=== PATIENT | male | born 1960 | race Caucasian/White ===

== ENCOUNTER 2025-07-27 23:47 | Emergency (ER) | payer SELFPAY ==
[2025-07-27 23:48] VITALS: BP 186/106; PULSE 75; RESP 18; TEMP 36.8; O2SAT 98; BMI 28.1
--- NOTE | 2025-07-28 00:01 | EDS_ITS ---
HPI History of Present Illness Chief Complaint: Complaint Informant: patient Narrative Narrative: Patient is a 65-year-old male with history of hypertension and type 2 diabetes mellitus presenting with difficulty urinating/decreased urine production. States he has had progressive symptoms for the past 2 days. He states about 2 hours prior to arrival he was able to have a very small urine (he states slightly more than a dribble). Able to urinate since. He feels that he does need to urinate. He describes discomfort in his lower abdomen. Has never had this happen to him before. Denies any recent anesthetics or medication changes. Denies any nausea or vomiting, fever or chills or change in his bowel movements. Denies any blood in his urine. Notes that 1 time he did have microscopic blood in his urine at a work physical but is not clear if he f ollowed up with that. States his most recent PSA was normal. States he will urinate anywhere between 1-4 times a night depending on the night. [facility] Medical History Type 2 diabetes mellitus HTN (hypertension) Allergy/AdvReac Type Severity Reaction Status Date / Time No Known Allergies Allergy Verified 07/27/25 23:48 Surgical History H/O heart surgery Social History Smoking Status: Current every day smoker tobacco type: smokeless tobacco ROS ROS ED Constitutional Constitutional ED: Denies chills or fever(s) Gastrointestinal Gastrointestinal: Denies diarrhea, nausea or vomiting Genitourinary Genitourinary ED: Reports urinary frequency and other Details: Difficulty urinating, inability to urinate ; Denies dysuria or hematuria Musculoskeletal Musculoskeletal: Denies back pain Neurologic Neurologic: Denies weakness EXAM Physical Exam Const Vital Signs: 07/27/25 23:48 Temperature 98.3 F Temperature Source Oral Pulse Rate 75 Respiratory Rate 18 Blood Pressure 186/106 H Blood Pressure Mean 132 Pulse Ox 98 Positive well nourished and well developed General Appearance ED: well developed and NAD; Negative for pallor HEENT Reports moist mucous membranes Neck supple Resp normal respiratory effort Cardio regular rate GI non-distended Auscultation: normoactive bowel sounds Palpation: soft and tender suprapubic Narrative: Normal external genitalia. Crowe catheter placed was in the room, clear yellow urine coming out (600-700 cc after the first few minutes) Extremity normal to inspection Neuro oriented x3 Sensorium / Orientation: alert Psych mental status grossly normal Skin General Skin Exam: Negative for jaundice or pallor MDM MDM MDM Narrative Medical decision making narrative: Patient valuated for difficulty urinating. Differential includes not limited to acute urinary retention, prostate enlargement, urinary tract infection and cystitis hematuria. Bladder scan shows almost 1000 cc of urine. Crowe catheter placed. Given his symptoms are going on for 2 days we will check a BMP to ensure he does not have an acute kidney injury. Will send off her urine/urine culture. Patient has a total of 1000 cc of urine out per nursing. Kidney function has normal creatinine and no signs of infection. Is given education on Crowe catheter care and outpatient urology follow-up. Given return precautions. Discharged home in improved and stable condition. Lab Data Labs: Laboratory Results - last 24 hr 07/28/25 07/28/25 00:00 00:01 Sodium 136 Potassium 4.3 Chloride 101 Carbon Dioxide 21.3 Anion Gap 14 BUN 28 H Creatinine 1.20 Estim Creat Clear Calc 76.23 Est GFR (MDRD) Non-Af 68 BUN/Creatinine Ratio 22.9 H Glucose 162 H Calcium 9.4 Urine Color Yellow Urine Clarity Clear Urine pH 6.5 Ur Specific [place] 1.015 Urine Protein 15 H Urine Glucose (UA) Normal Urine Ketones Negative Urine Occult Blood Negative Urine Nitrite Negative Urine Bilirubin Negative Urine Urobilinogen Normal Ur Leukocyte Esterase Negative Urine RBC 0-5 SEEN Urine WBC 0-5 SEEN Ur Squamous Epith Cells 0-5 SEEN Urine Bacteria 0 SEEN Urine Mucus 0 SEEN Discharge Plan Triage Chief Complaint: Complaint ED Provider: Cecilia Walker Dx/Rx/DC Orders Clinical Impression: Acute urinary retention Instructions: ED Crowe Catheter, Care, ED Urinary Retention, Male Primary Care Provider: KAILEY CALL Referrals: Bruno Colon MD [Med Staff - Active Staff, Urology] Activity Restrictions/Additional Instructions: Follow-up with your family medicine doctor or urology in 3 to 5 days for repeat evaluation and potential removal of your Crowe catheter. Print Language: Citizen Of [place] Disposition Disposition: Home, Self Care
[2025-07-28 00:05] LABS: Mucous, Urine 0 SEEN /hpf (<or=2+)
[2025-07-28 00:07] LABS: Color, Urine Yellow (Yellow); Glucose, Dipstick Normal (Normal); Ketone-Dipstick Negative (Negative); Leukocyte Esterase-Dipstick Negative /ul (Negative); Nitrite-Dipstick Negative (Negative); Occult Blood-Urine Negative /ul (Negative); Protein-Dipstick 15 mg/dl (Negative); Specific Gravity, Urine 1.015 (1.002-1.030); Urine Bilirubin Dipstick Negative (Negative)
--- OUTSIDE RECORDS SUMMARY | 2025-07-28 00:23 | XMS RPT_ITS | CCD ---
Author Organization [facility] Inform ion Partnership [facility] Care Team Providers Care Rod Tape Operator Name Role Phone MARY JIMENEZ Unavailable Unavailable MARY JIMENEZ Unavailable Unavailable MARY JIMENEZ Unavailable Unavailable SE ADLER Unavailable Unavailable Kailey Nieves DO Primary Care Provider Kailey Nivees DO Primary Care Provider KAILEY NIEVES Primary Care Unavailable SKYLER VERGARA Attending Unavailable KAILEY NIEVES Primary Care Unavailable SKYLER VERGARA Referring Unavailable GENTRY BARRIOS Referring Unavailable KAILEY NIEVES Primary Care Unavailable KAILEY NIEVES Primary Care Unavailable Medications Current Medications Medication Drug Class(es) Dates Sig (Normalized) Sig (Original) aspirin 81 mg chewable tablet (6 sources) Platelet Aggregation Inhibitor, Nonsteroidal Anti-inflammatory Drug Start: 09-27-2023 End: 12-18-2069 aspirin 81 mg chewable tablet Chew 1 tablet (81 mg total) 1 (one) time each day. 30 tablet 09/29/2023 12/18/2069 Active Start: 09-26-2023 aspirin chewab le tablet 324 mg End: 09-26-2023 take 1 tablet by mouth once daily aspirin 81 mg EC tablet Take 81 mg by mouth 1 (one) time each day. 0 09/26/2023 Discontinued (Pharmacy Med Rec) cephalexin 500 mg oral capsule (2 sources) Cephalosporin Antibacterial Start: 02-20-2025 End: 02-25-2025 take 1 capsule by mouth four times daily cephalexin (Keflex) 500 mg capsule Take 1 capsule (500 mg total) by mouth 4 (four) times a day for 5 days. 20 capsule 02/20/2025 02/25/2025 Active Start: 02-20-2025 End: 02-20-2025 take 500 mg by mouth once 500 mg, oral, Once, On Chika at 0845, For 1 dose, Suspected Indication (Select all that apply): Medical Prophylaxis dextromethorphan hydrobromide 15 mg / guaiFENesin 400 mg / pseudoephedrine hydrochloride 60 mg oral tablet (1 source) alpha-Adrenergic Agonist, Uncompetitive B-tlthii-B-aspartate Receptor Antagonist, Sigma-1 Agonist Start: 03-16-2022 take 1 tablet by mouth every six hours ioucwosdytbiumt-WV-hqwddbaykle (Capmist DM) 60-15-400 mg tablet Indications: Acute upper respiratory infection, unspecified Take 1 tablet by mouth every 6 (six) hours if needed (cough/congestion). 30 tablet 0 03/16/2022 Active empagliflozin 10 mg oral tablet (3 sources) Sodium-Glucose Cotransporter 2 Inhibitor Start: 11-27-2023 take 1 tablet by mouth once daily Jardiance 10 mg Take 1 tablet (10 mg total) by mouth 1 (one) time each day. 11/27/2023 Active Start: 09-27-2023 End: 10-29-2023 take 1 tablet by mouth once daily empagliflozin (Jardiance) 10 mg Take 1 tablet (10 mg total) by mouth 1 (one) time each day. 30 tablet 0 09/29/2023 10/29/2023 Active furosemide 20 mg oral tablet (1 source) Loop Diuretic Start: 09-18-2018 furosemide (La six) 20 mg tablet 1 (one) time each day at the same time. 0 09/18/2018 Active glimepiride 4 mg oral tablet (4 sources) Sulfonylurea Start: 09-09-2022 End: 09-28-2023 take 1 tablet by mouth once daily before breakfast glimepiride (Amaryl) 4 mg tablet Take 1 tablet (4 mg total) by mouth 1 (one) time each day before breakfast. 09/09/2022 Active Start: 06-29-2021 take 1 tablet by katarzyna th twice daily glimepiride (Amaryl) 4 mg tablet Take 4 mg by mouth 2 (two) times a day. 0 06/29/2021 Active losartan potassium 100 mg oral tablet (7 sources) Angiotensin 2 Receptor Celeste Start: 09-29-2023 End: 09-28-2023 losartan (Cozaar) tablet 100 mg Start: 09-28-2023 End: 12-18-2073 take 1 tablet by mouth once daily losartan (Cozaar) 100 mg tablet Take 1 tablet (100 mg total) by mouth 1 (one) time each day. 30 tablet 09/28/2023 12/18/2073 Active Start: 07-04-2021 End: 09-28-2023 take 50 mg by mouth once daily 50 mg, oral, Daily, Fir st dose on Mon09/27/23 at 0900 metFORMIN hydrochloride 1000 mg oral tablet (3 sources) Biguanide Start: 06-29-2021 take 1 tablet by mouth twice daily metFORMIN (Glucophage) 1,000 mg tablet Take 1 tablet (1,000 mg total) by mouth 2 (two) times a day. 06/29/2021 Active rosuvastatin calcium 20 mg oral tablet (4 sources) HMG-CoA Reductase Inhibitor Start: 05-24-2021 End: 09-28-2023 take 1 tablet by mouth once daily rosuvastatin (Crestor) 20 mg tablet Take 1 tablet (20 mg total) by mouth every night. 05/24/2021 Active spironolactone 25 mg oral tablet (4 sources) Aldosterone Antagonist Start: 09-09-2022 End: 09-28-2023 take 1 tablet by mouth once daily spironolactone (Aldactone) 25 mg tablet Take 1 tablet (25 mg total) by mouth 1 (one) time each day. 09/09/2022 Active Start: 07-04-2021 take 1 tablet by katarzyna twice daily spironolactone (Aldactone) 25 mg tablet Take 25 mg by mouth 2 (two) times a day. 0 07/04/2021 Active Completed/Discontinued Medications Medication Drug Class(es) Dates Sig (Normalized) Sig (Original) acetaminophen 650 mg rectal suppository (5 sources) Start: 09-27-2023 End: 09-28-2023 take 4 g by mouth every twenty-four hours 650 mg, rectal, Every 4 hours PRN, general discomfort or temperature greater than 100.4 degrees F. *Do not exceed 4 grams in 24 hours*, Starting on Mon09/27/23 at 0119, Give OH if unable to administer by mouth or feeding tube. Start: 09-27-2023 End: 09-28-2023 take 4 g by mouth every twenty-four hours 650 mg, oral, Every 4 hours PRN, fever, general discomfort or temperature greater than 100.4 degrees F. May give rectal suppository if npo. *Do not exceed 4 grams in 24 hours*, Starting on Mon09/27/23 at 0119 Start: 09-27-2023 End: 09-28-2023 take 4 g by mouth every twenty-four hours 650 mg, oral, Every 4 hours PRN, general discomfort or temperature greater than 100.4 degrees F. May give rectal suppository if npo. *Do not exceed 4 grams in 24 hours*, Starting on Mon09/27/23 at 0119 take 500-1000 mg by mouth every six hours as needed acetaminophen (Tylenol) 500 mg tablet Take 1-2 tablets (500-1,000 mg total) by mouth every 6 (six) hours if needed for mild pain. Active Atropine (1 source) Anticholinergic, Cholinergic Muscarinic Antagonist Start: 09-27-2023 End: 09-28-2023 0.5 mg, intravenous, Every 5 min PRN, symptomatic bradycardia, Starting on Mon09/27/23 at 0119, Prn symptomatic bradycardia including: - HR less than 50 per minute - HR less than 60 per minute with systolic BP less than 90 mm Hg - HR less than 60 per minute with PVCs carvedilol 25 mg oral tablet (5 sources) alpha-Adrenergic Celeste, beta-Adrenergic Celeste Start: 09-09-2022 End: 09-28-2023 take 25 mg by mouth twice daily at mealtime 25 mg, oral, 2 times daily with meals, First dose on Mon09/27/23 at 0800 Start: 02-08-2018 take 1 tablet by katarzyna twice daily carvedilol (Coreg) 12.5 mg tablet ONE BY MOUTH TWICE A DAY 0 02/08/2018 Active clopidogrel 75 mg oral tablet (4 sources) P2Y12 Platelet Inhibitor Start: 09-10-2022 End: 09-28-2023 take 75 mg by mouth once daily 75 mg, oral, Daily, First dose on Mon09/27/23 at 0900 docusate sodium 100 mg oral capsule (1 source) Start: 09-27-2023 End: 09-28-2023 take 100 mg by mouth twice daily as needed for constipation 100 mg, oral, 2 times daily PRN, constipation prevention, Starting on Mon09/27/23 at 0119, Bowel Regimen - for prevention of constipation. Glucose (1 source) Start: 09-27-2023 End: 09-28-2023 dextrose solution 25 mL 250 ml heparin sodium, porcine 50 unt/ml injection (2 sources) Unfractionated Heparin, Anti-coagulant Start: 09-26-2023 End: 09-27-2023 heparin infusion 50 units/mL in 0.45% NaCl Start: 09-26-2023 End: 09-26-2023 heparin (porcine) injection 4,000 Units 1 ml hydrALAZINE hydrochloride 20 mg/ml injection (1 source) Arteriolar Vasodilator Start: 09-26-2023 End: 09-26-2023 hydrALAZINE (Apresoline) injection 10 mg 24 hr isosorbide mononitrate 30 mg extended release oral tablet (1 source) Nitrate Vasodilator Start: 09-26-2023 End: 09-26-2023 isosorbide mononitrate ER (Imdur) 24 hr tablet 30 mg magnesium hydroxide 80 mg/ml oral suspension (1 source) Start: 09-27-2023 End: 09-28-2023 take 30 mL by mouth once daily as needed for constipation 30 mL, oral, Daily PRN, constipation, Starting on Mon09/27/23 at 0119, 1st line for treatment of constipation - give scheduled if no bowel movement in past 24 hours Naloxone (1 source) Opioid Antagonist Start: 09-27-2023 End: 09-28-2023 0.4 mg, intravenous, As needed, respiratory depression, Starting on Mon09/27/23 at 0119, 0.4 mg (1 mL) IVP over 30 seconds for respiratory rate less than 8 per minute: NOTIFY PHYSICIAN immediately. Repeat every 2 minutes as needed up to 10 mg total. nitroglycerin 0.4 mg sublingual tablet (4 sources) Nitrate Vasodilator Start: 09-09-2022 End: 09-28-2023 0.4 mg, sublingual, Every 5 min PRN, chest pain, Starting on Mon09/27/23 at 0119, Give every 5 minutes as needed for chest pain to a maximum of 3 doses. Notify MD and obtain EKG if no relief after 3 doses or chest pain recurs. HOLD and notify MD if SBP less than 90 mmHg. Do not give if nitroglycerin infusion running concurrently. Do not give within 24 hours of sildenafil citrate (Viagra) or vardenafil (Levitra) use, or within 48 hours of tadalafil (Cialis) use. 2 ml ondansetron 2 mg/ml injection (1 source) Serotonin-3 Receptor Antagonist Start: 09-27-2023 End: 09-28-2023 4 mg, intravenous, Every 8 hours PRN, nausea, vomiting, Starting on Mon09/27/23 at 0119, 1st Line. If inadequate response within 60 minutes, proceed to next-line agent or contact provider if no further options ordered. Oxygen (1 source) Start: 09-27-2023 End: 09-28-2023 inhalation, See admin instructions, Starting on Mon09/27/23 at 011, for shortness of breath or Hgb less than 8.0, Device: Nasal Cannula, Rate in liters per minute: 2 Lpm, Titrate to keep O2 Sat greater than or equal to: 90% potassium chloride 10 meq extended release oral tablet (1 source) Start: 09-27-2023 End: 09-27-2023 potassium chloride CR (K-Tab) ER tablet 20 mEq 125 ml sodium chloride 9 mg/ml prefilled syringe (2 sources) Start: 09-27-2023 End: 09-28-2023 3-15 mL, intravenous, As needed, line care, each shift and as needed, Starting on Mon09/27/23 at 0119 Start: 09-27-2023 End: 09-28-2023 250 mL, intravenous, at 20 m L/hr, KVO, Line Care, Starting on Mon09/27/23 at 0119, If no maintenance IV fluid ordered, run a 250 mL bag of 0.9% NaCl with all IVPB. Problems Active Problems Problem Classification Problem Date Documented Da te Episodic/Chronic Acute and unspecified renal failure (2 sources) Acute injury of kidney; Translations: [Acute kidney failure, unspecified] 09-07-2022 Episodic Acute myocardial infarction (4 sources) Myocardial infarction; Translations: [Non-ST elevation (NSTEMI) myocardial infarction] Onset: 09-07-2022 09-28-2023 Chronic Conduction disorders (3 sources) Left bundle branch block; Translations: [Left bundle-branch block, unspecified] Onset: 09-26-2023 09-28-2023 Chronic Congestive heart failure; nonhypertensive (4 sources) Chronic systolic heart failure; Translations: [Chronic systolic (congestive) heart failure] Onset: 09-08-2022 09-28-2023 Chronic Coronary atherosclerosis and other heart disease (4 sources) Preinfarction syndrome; Translations: [Unstable angina] 09-26-2023 Chronic Diabetes mellitus without complication (3 sources) Type 2 diabetes mellitus; Translations: [Type 2 diabetes mellitus without complications] 09-28-2023 Chronic Disorders of lipid metabolism (3 sources) Hyperlipidemia; Translations: [Hyperlipidemia, unspecified] Onset: 09-26-2023 09-28-2023 Chronic Essential hypertension (3 sources) Hypertensive disorder; Translations: [Essential (primary) hypertension] 09-28-2023 Chronic Open wounds of extremities (2 sources) Laceration without foreign body of unspecified toe without damage to nail, initial encounter; Translations: [Laceration of toe without foreign body] Onset: 02-20-2025 02-20-2025 Episodic Other upper respiratory infections (1 source) Acute upper respiratory infection; Translations: [Acute upper respiratory infection, unspecified] Episodic Superficial injury; contusion (2 sources) Contusion of unspecified knee, initial encounter; Translations: [Contusion of knee] Onset: 02-20-2025 02-20-2025 Episodic Unclassified (1 source) Low back pain, unspecified; Translations: [Low back pain, unspecified] Onset: 06-15-2024 Viral infection (1 source) Viral disease; Translations: [Viral infection, unspecified] Episodic Past or Other Problems Problem Classification Problem Date Documented Da te Episodic/Chronic Hypertension with complications and secondary hypertension (3 sources) Hypertensive urgency ; Translations: [Hypertensive urgency] Onset: 09-26-2023 Resolved: 09-28-2023 09-28-2023 Chronic Nonspecific chest pain (3 sources) Acute chest pain; Translations: [Chest pain, unspecified] Onset: 09-07-2022 09-26-2023 Episodic Results Test Name Value Interpretation Reference Range Facility Laceration Repairon 02-21-20 25 Neeta Marin 02/20/2025 8:51 AM Laceration Repair Performed by: Skyler Vergara MD Authorized by: Skyler Vergara MD Consent: Consent obtained: Verbal Consent given by: Patient Anesthesia: Anesthesia method: Local infiltration Local anesthetic: Lidocaine 1% w/o epi Laceration details: Location: Toe Toe location: R little toe Length (cm): 2 Exploration: Contaminated: no Treatment: Area cleansed with: Povidone-iodine Amount of cleaning: Extensive Irrigation solution: Sterile saline Skin repair: Repair method: Sutures Suture size: 4-0 Suture material: Nylon Suture technique: Simple interrupted Number of sutures: 4 Approximation: Approximation: Close Repair type: Repair type: Simple Post-procedure details: Dressing: Antibiotic ointment Procedure completion: Tolerated [facility] No Panel Informationon 02-20 Radiology Study observation (narrative) [facility] XR FOOT 3+ VIEWS RIGHTon XR FOOT 3+ VIEWS RIGHT XR FOOT 3+ VIEWS RIGHT RIGHT FOOT: TECHNIQUE: AP, lateral and oblique views (3 views) CLINICAL INDICATION: Fall, pain COMPARISON: None available in PACS. FINDINGS: The osseous structures appear intact. No fracture or dislocation is identified. There is a small plantar spur. Posterior calcaneal enthesophyte is noted. Bandage is noted overlying the fifth digit. IMPRESSION: 1. No acute fracture. Normal [facility] XR Foot - right 3 Viewson 1. No acute fracture . [facility] RIGHT FOOT: TECHNIQUE: AP, lateral and oblique views (3 views) CLINICAL INDICATION: Fall, pain COMPARISON: None available in PACS. FINDINGS: The osseous structures appear intact. No fracture or dislocation is identified. There is a small plantar spur. Posterior calcaneal enthesophyte is noted. Bandage is noted overlying the fifth digit. [facility] Harish Jj MD - 02/20/2025 RIGHT FOOT: TECHNIQUE: AP, lateral and oblique views (3 views) CLINICAL INDICATION: Fall, pain COMPARISON: None available in PACS. FINDINGS: The osseous structures appear intact. No fracture or dislocation is identified. There is a small plantar spur. Posterior calcaneal enthesophyte is noted. Bandage is noted overlying the fifth digit. IMPRESSION: 1. No acute fracture. [facility] XR Foot - right 3 ViewsOrder ed By: Harish Jj on 02-20-2025 [facility] Work Phone: XR KNEE 2 VIEWS LEFTon 02-20 XR KNEE 2 VIEWS LEFT XR KNEE 2 VIEWS LEFT LEFT KNEE: TECHNIQUE: AP and lateral views (2 views) CLINICAL INDICATION: Injury, pain COMPARISON: None available in PACS. FINDINGS: No fracture or dislocation is identified. Enthesophytes are seen in the quadriceps insertion and patellar tendon insertion. Mild benign-appearing periosteal thickening is seen along the proximal shaft of the fibula and adjacent soft tissue calcifications are noted. Grouping of multiple small soft tissue calcifications are seen posterior to the knee. IMPRESSION: 1. No fracture or dislocation. Normal [facility] XR Knee - left 2 Viewson 1. No fracture or dislocation. [facility] LEFT KNEE: TECHNIQUE: AP and lateral views (2 views) CLINICAL INDICATION: Injury, pain COMPARISON: None available in PACS. FINDINGS: No fracture or dislocation is identified. Enthesophytes are seen in the quadriceps insertion and patellar tendon insertion. Mild benign-appearing periosteal thickening is seen along the proximal shaft of the fibula and adjacent soft tissue calcifications are noted. Grouping of multiple small soft tissue calcifications are seen posterior to the knee. [facility] Harish Jj MD - 02/20/2025 LEFT KNEE: TECHNIQUE: AP and lateral views (2 views) CLINICAL INDICATION: Injury, pain COMPARISON: None available in PACS. FINDINGS: No fracture or dislocation is identified. Enthesophytes are seen in the quadriceps insertion and patellar tendon insertion. Mild benign-appearing periosteal thickening is seen along the proximal shaft of the fibula and adjacent soft tissue calcifications are noted. Grouping of multiple small soft tissue calcifications are seen posterior to the knee. IMPRESSION: 1. No fracture or dislocation. [facility] XR TIBIA FIBULA 2 VIEWS RIGH Ton 02-20-2025 XR TIBIA FIBULA 2 VIEWS RIGHT XR TIBIA FIBULA 2 VIEWS RIGHT RIGHT LEG: TECHNIQUE: AP and lateral views (2 views) CLINICAL INDICATION: Fall, pain COMPARISON: None available in PACS. FINDINGS: No acute fracture is identified. Mild periosteal thickening and adjacent soft tissue calcifications seen along the proximal shaft of the fibula. Focal calcification is identified superimposed on the distal fibula at the lateral malleolus. This may be related to an old injury. No soft tissue swelling is identified. IMPRESSION: 1. No definite acute abnormality. Normal [facility] XR Tibia and Fibula - right Viewson 02-20-2025 1. No definite acute abnormality. [facility] RIGHT LEG: TECHNIQUE: AP and lateral views (2 views) CLINICAL INDICATION: Fall, pain COMPARISON: None available in PACS. FINDINGS: No acute fracture is identified. Mild periosteal thickening and adjacent soft tissue calcifications seen along the proximal shaft of the fibula. Focal calcification is identified superimposed on the distal fibula at the lateral malleolus. This may be related to an old injury. No soft tissue swelling is identified. [facility] Harish Jj MD - 02/20/2025 RIGHT LEG: TECHNIQUE: AP and lateral views (2 views) CLINICAL INDICATION: Fall, pain COMPARISON: None available in PACS. FINDINGS: No acute fracture is identified. Mild periosteal thickening and adjacent soft tissue calcifications seen along the proximal shaft of the fibula. Focal calcification is identified superimposed on the distal fibula at the lateral malleolus. This may be related to an old injury. No soft tissue swelling is identified. IMPRESSION: 1. No definite acute abnormality. [facility] Basic metabolic 1998 panelon 09-28-2023 Anion gap [Moles/Vol] 13.7 mmol/L 8.0 - 22.0 [facility] Calcium [Mass/Vol] 8.5 mg/dL Low 8.7 - 10. 4 mg/dL [facility] Chloride [Moles/Vol] 104 mmol/L 99 - 109 mmol/L [facility] CO2 [Moles/Vol] 21 mmol/L 20 - 31 mmol/L [facility] Creatinine [Mass/Vol] 1.0 mg/dL 0.7 - 1.3 mg/dL [facility] Fasting status Reported Ql [facility] GFR/1.73 sq M.predicted MDRD (S/P/Bld) [Vol rate/Area] 85.1 mL/min/{1.73_m2} =>60 mL/min/1.73m* 2 [facility] Comment on above: CALCULATION BASED ON THE CHRONIC KIDNEY DISEASE EPIDEMIOLOGY COLLABORATION (CKD-EPI) EQUATION REFIT WITHOUT ADJUSTMENT FOR RACE. GFR LESS THAN 60 mL/min/1.73m2: SUGGESTIVE OF CHRONIC KIDNEY DISEASE. GFR LESS THAN 15 mL/min/1.73m2: SUGGESTIVE OF END STAGE RENAL DISEASE. Glucose [Mass/Vol] 116 mg/dL High 74 - 106 mg/dL [facility] Comment on above: NOTE IF THIS IS A FASTING SPECIMEN THE FOLLOWING RANGES APPLY: NORMAL 70 TO 99 mg/dL PREDIABETIC 100 TO 125 mg/dL DIABETIC >= 126 mg/dL Interpretation and review of laboratory results Abnormal [facility] Osmolality Calc [Osmolality] 278 mosm/kg 275 - 305 mosm/kg [facility] Potassium [Moles/Vol] 4.7 mmol/L 3.6 - 5.1 mmol/L [facility] Sodium [Moles/Vol] 134 mmol/L 132 - 146 mmol/L [facility] Urea nitrogen [Mass/Vol] 11 mg/dL 9 - 23 mg/dL [facility] Urea nitrogen/Creatinine [Mass ratio] 11.0 mg/mg 6.0 - 20.0 [facility] CBC panel Auto (Bld)on 09-28 Erythrocyte distribution width (RBC) [Ratio] 14.3 % 11.5 - 14.5 % [facility] Hematocrit (Bld) [Volume fraction] 45.8 % 41.0 - 53.0 % [facility] Hemoglobin (Bld) [Mass/Vol] 14.3 g/dL 13.5 - 17.5 g/dL [facility] Interpretation and review of laboratory results Abnormal [facility] MCH (RBC) [Entitic mass] 27.2 pg 26.0 - 34.0 pg [facility] MCHC (RBC) [Mass/Vol] 31.2 g/dL 31.0 - 37.0 g/dL [facility] MCV (RBC) [Entitic vol] 87.0 fL 80.0 - 100.0 fL [facility] Platelet mean volume (Bld) [Entitic vol] 7.2 fL Low 7.4 - 10.4 fL [facility] Platelets (Bld) [#/Vol] 177 10*3/uL 140 - 440 10*3/uL [facility] RBC (Bld) [#/Vol] 5.27 10*6/uL 4.50 - 5.9 0 10*6/uL [facility] WBC (Bld) [#/Vol] 5.8 10*3/uL 4.0 - 11.0 10*3/uL [facility] Cholesterol in LDL Direct as say [Mass/Vol]on 09-28-2023 Cholesterol in LDL [Mass/Vol] 90.4 mg/dL NINF - 100 mg/dL [facility] Comment on above: RISK LEVELS: OPTIMAL: LESS THAN 100 MG/DL NEAR OR ABOVE OPTIMAL: 100-129 MG/DL BORDERLINE HIGH: 130-159 MG/DL HIGH: 160-189 MG/DL VERY HIGH: GREATER THAN OR EQUAL 190 MG/DL Interpretation and review of laboratory results Normal [facility] Glucose baseline (BldC) [Mas s/Vol]on 09-28-2023 Glucose [Mass/Vol] 149 mg/dL High 74 - 118 mg/dL [facility] Comment on above: ACCEPT RESULTS Interpretation and review of laboratory results Abnormal [facility] Glucose [Mass/Vol] 119 mg/dL High 74 - 118 mg/dL [facility] Comment on above: ACCEPT RESULTS Interpretation and review of laboratory results Abnormal [facility] Magnesiumon 09-28-2023 Magnesium [Mass/Vol] 2.3 mg/dL 1.5 - 2.3 mg/dL [facility] Magnesium [Mass/Vol]on 09-28 Interpretation and review of laboratory results Normal [facility] CBC panel Auto (Bld)on 09-27 Erythrocyte distribution width (RBC) [Ratio] 14.4 % 11.5 - 14.5 % [facility] Hematocrit (Bld) [Volume fraction] 44.0 % 41.0 - 53.0 % [facility] Hemoglobin (Bld) [Mass/Vol] 13.9 g/dL 13.5 - 17.5 g/dL [facility] Interpretation and review of laboratory results Abnormal [facility] MCH (RBC) [Entitic mass] 26.9 pg 26.0 - 34.0 pg [facility] MCHC (RBC) [Mass/Vol] 31.5 g/dL 31.0 - 37.0 g/dL [facility] MCV (RBC) [Entitic vol] 85.3 fL 80.0 - 100.0 fL [facility] Platelet mean volume (Bld) [Entitic vol] 7.0 fL Low 7.4 - 10.4 fL [facility] Platelets (Bld) [#/Vol] 212 10*3/uL 140 - 440 10*3/uL [facility] RBC (Bld) [#/Vol] 5.16 10*6/uL 4.50 - 5.9 0 10*6/uL [facility] WBC (Bld) [#/Vol] 6.0 10*3/uL 4.0 - 11.0 10*3/uL [facility] Cardiac catheterization stud yon 09-27-2023 POCT, GENERIC PROVID ER - 09/27/2023 [address], [place] [address] Invasive Procedure Report PATIENT INFORMATION Patient Name SIDRA, Age 63 Years ANDREWS Pillai Study Date 09/27/2023 Gender Male Race White Study Number [id number] Height 178 cm (5'10) Weight 99.7 kg (220 lbs) Date of 1960 BSA 2.17 m2 STAFF Duty Name Diagnostic Zipper Machine Operator Thong Paez MD 11:26 AM Leadlighter Fabiola Ramos RN 11:26 AM Leadlighter Yasmine Aldridge RN 11:26 AM Monitor Maribel Almanzar RN 11:27 AM Monitor Yasmine Aldridge RN 11:27 AM Scrub RT Valeria 11:34 AM Product Trainer Thong Paez MD 12:29 PM PROCEDURES Procedure Comment Left Heart Cath Coronary Angiogram PCI & Stent to LCX ACT. ACT. CONTRAST Contrast Amount (m l) Comment Patient Name: ANDREWS VALENTE Study Date: 09/27/2023 Admission ID: [id number] [address] [place] [address] Isovue 370 100 PRESSURE SUMMARY (mmHg) Time Site Sys Jimenez EDP Mean A Wave V Wave HR 12:22 PM LV 115 1 9 67 12:22 PM LV 118 6 10 66 12:22 PM LV 100 6 13 66 12:22 PM AO 92 50 55 55 12:41 PM AO 114 64 85 64 PHYSICIAN DESIRED OTERO SEDATION SCALE (RSS) Anxious/agitated or restless = 1 Patient is cooperative, oriented & tranquil = 2 Patient responds to commands only = 3 Patient asleep but responds briskly to light glabellar tap or loud sounds = 4 Patient asleep with sluggish response to light glabellar tap or sounds = 5 Patient asleep with no response to stimuli = 6 Physician Desired Otero Level = 2 VITAL SIGNS Time SpO HR BP Exp RR Tem RSS/RASS LOP Comment 2 (BP (m m Hg) CO2 (per p (%) M) (m m H m in) ( C ) g) 11:54 96 72 160/90/119 35 18 2 0 AM 11:59 95 64 142/89/111 27 20 2 0 AM 12:03 96 66 128/77/95 33 14 2 0 PM 12:08 95 67 127/76/93 38 19 2 0 PM 12:13 95 65 119/73/91 30 14 2 0 PM 12:18 95 64 120/78/95 31 16 2 0 PM 12:23 93 67 131/82/100 36 17 2 0 PM 12:29 93 64 149/79/104 36 16 2 0 PM 12:33 95 64 141/78/101 31 15 2 0 PM 12:38 96 63 141/74/99 34 16 2 0 PM Patient Name: ANDREWS VALENTE Study Date: 09/27/2023 Admission ID: [id number] Page 2 of [address] [place] [address] 12:43 96 66 139/75/101 33 16 2 0 PM 12:49 95 63 155/84/112 36 15 2 0 PM 12:55 97 64 148/76/103 36 16 2 0 PM 12:59 96 64 144/69/99 34 15 2 0 PM 1:04 97 62 143/79/104 28 14 2 0 PM 1:08 95 62 140/83/105 34 15 2 0 PM ALLERGIES Allergies: NKDA PATIENT EDUCATION Learning Barrier Present None Learning Preference Verbal Explanation Readiness to Learn Cooperative Literacy Level Average Health Literacy Learners Present Patient Teaching Methods Used Explanation Subject Taught Diagnostic Procedure Subject Taught Medications/Sedation Subject Taught Pain Management Subject Taught Plan of Care Subject Taught Activity Restricions Subject Taught Anticoagulant Therapy Side Effects Reviewed Yes Learners Response Verbalizes Understanding NURSING ASSESSMENT Current medications See EMR Cardiovascular status No extremity edema Respiratory status Resp. regular and easy GI status Abdomen soft and non tender /Renal status Voids without difficulty Patient Name: ANDREWS VALENTE Study Date: 09/27/2023 Admission ID: [id number] Page 3 of [address] [place] [id number] History and Risk Factors *Hypertension:(4615) Yes *Dyslipidemia:(4620) Yes *Prior CA:(4291) Yes *Prior PCI:(4495) Yes *If Yes, Most Recent PCI Date:(4503) 10/23/2018 *Tobacco Use:(4625) Never *Family Hx. of Premature CAD:(4287) No Cerebrovascular Disease:(4551) No Peripheral Artery Disease:(4610) No Chronic Lung Disease:(4576) No *Prior CABG:(4515) No History and Risk Factors Form 2 *Diabetes Mellitus:(4555) Yes *Currently on Dialysis:(4560) No Pre-Procedure Information *Heart Failure:(4001) Yes PATIENT LABS Date of Labwork 09/27/2023 Na: 137 K+: 3.7 Bun: 10 GFR: 96 Pre-Troponin I: 325 Hct: 44 Platelets: 212 Labs *Pre-Creatinine:(6050) 0.9 Pre-Hemoglobin:(6030) 13.9 Patient Name: ANDREWS VALENTE Study Date: 09/27/2023 Admission ID: [id number] Page 4 of [address] [place] [id number] PAIN ASSESSMENT Pre Procedure Pain Scale 0 Post Procedure Pain Scale 0 PRE PROCEDURE PULSES Time Pulses Checked 11:33:44 AM R Radial: Normal L Radial: Normal Extremity Movement Able to move all 4 extremities Extremity Sensation WNL x 4 extremities Capillary refill < 2sec. Skin temp. Warm Skin color WNL Nail bed color WNL ACT ACT Reference range CV patient 120-196 seconds ACT #1 Time 12:21:12 PM ACT result #1 165 Performed by Tiera Bowen RN ACT #2 Time 12:45:23 PM ACT result #2 118 Performed by Tiera Bowen RN ANGIOGRAM (more content not included)... [facility] [employer] Cardiac catheterization stud yOrdered By: Generic Poct on 09-27-2023 [facility] [employer] Work Phone: Cardiac echo study Procedure on 09-27-2023 [facility] [address] [place], [place] [id number] Voice: [phone] Transthoracic Echocardiogram Name: ANDREWS VALENTE Study Date: 09/27/2023 Date: 1960 Order #: [id number] Age: 63 year(s) Patient location: [facility], [facility] [place], [facility] Gender: Male Ordering provider: KAYLENE PORTER HR: Height /Weight: 70 in. /99.34 kg BP: 115/74 mmHg BSA: 2.17 m2 Examination: ECHO(COMPLETE) Primary ICD 10: I21.4 Non-ST elevation (NSTEMI) myocardial infarction Procedure Staff Reading Physician: Thong Paez MD Architectural Drafter: Deloris Toro RDCS Ordering Physician: KAYLENE PORTER Conclusions Left Ventricle: * Left ventricle is moderately dilated. * Severely abnormal systolic LV function. * Biplane LVEF is calculated at 25 %. * Severe global hypokinesis. * Doppler parameters are consistent with abnormal left ventricular relaxation (Grade 1 diastolic dysfunction). Mitral Valve: * Mitral leaflets exhibit normal cuspal separation. * There is mild mitral thickening. Tricuspid Valve: * Trivial tricuspid regurgitation. Tricuspid Valve Measurements * RVSP: 6 mmHg. Findings Left Ventricle: Patient: ANDREWS VALENTE Study Date: 09/27/2023 10:58 AM Page 1 of 3 Left ventricle is moderately dilated. Severely abnormal systolic LV function. Severe global hypokinesis. Doppler parameters are consistent with abnormal left ventricular relaxation (Grade 1 diastolic dysfunction). Right Ventricle: Normal size right ventricle. Right ventricular systolic function is normal. Left Atrium: The left atrium is mildly dilated. Right Atrium: The right atrium is normal in size and appearance. Mitral Valve: Mitral leaflets exhibit normal cuspal separation. There is mild mitral thickening. Aortic Valve: Aortic Leaflets exhibit normal cuspal separation. Tricuspid Valve: Tricuspid valve leaflets are normal. Trivial tricuspid regurgitation. Pulmonic Valve: Pulmonic leaflets exhibit normal cuspal separation. Aorta: The ascending aorta is normal in size. The transverse aorta is normal in size. The aortic root exhibits normal size. Pericardium: Normal pericardium, including no pericardial effusion. --- Measurements Left Ventricle Aortic Valve Label Value Normal Value Label Value Normal Value LVOT Vmax 0.78 m/s (0.7m/s - 1.1m/s) AV Vmax 1.19 m/s LVOTd 2.1 cm (1.9cm - 2.1cm) AV Vmean 0.93 m/s LVOT VTI 16.00 cm (18cm - 22cm) AV VTI 26.00 cm LVOT PGmax 2 mmHg AV PGmax 6 mmHg LVDd, 2D 5.3 cm (4.2cm - 5.8cm) AV PGmean 4 mmHg LVDs, 2D 4.4 cm (2.5cm - 4cm) MAGALY D (continuity eq. 2.3 cm LVPWd, 2D 1.2 cm (0.6cm - 1cm) Vmax) FS, 2D 16.98 % MAGALY D (continuity eq. 2.1 cm LVEF, BP 25 % (52% - 72%) VTI) LVEF, 2D 35 % (52% - 72%) Mitral Valve LVEDV, BP 177 ml (62ml - 150ml) Label Value Normal Value LVSV, BP 69 ml MV Vmax 1.32 m/s EPSS, MM 2.7 cm (0.2cm - 0.7cm) MV Vmean 0.68 m/s LVEDV, 2D 135 ml MV VT (more content not included)... [facility] Thong Paez MD - 09/27/2023 IMPRESSION: [place] [address] Voice: [phone] Transthoracic Echocardiogram ------ Name: ANDREWS VALENTE Study Date: 09/27/2023 Date: 1960 Order #: [id number] Age: 63 year(s) Patient location: [address] Gender: Male Ordering provider: KAYLENE PORTER HR: Height /Weight: 70 in. /99.34 kg BP: 115/74 mmHg BSA: 2.17 m2 ------ Examination: ECHO(COMPLETE) ------ Primary ICD 10: I21.4 Non-ST elevation (NSTEMI) myocardial infarction ------ Procedure Staff Reading Physician: Thong Paez MD Architectural Drafter: Deloris Toro RDCS Ordering Physician: KAYLENE PORTER ------ Conclusions Left Ventricle: * Left ventricle is moderately dilated. * Severely abnormal systolic LV function. * Biplane LVEF is calculated at 25 %. * Severe global hypokinesis. * Doppler parameters are consistent with abnormal left ventricular relaxation (Grade 1 diastolic dysfunction). Mitral Valve: * Mitral leaflets exhibit normal cuspal separation. * There is mild mitral thickening. Tricuspid Valve: * Trivial tricuspid regurgitation. Tricuspid Valve Measurements * RVSP: 6 mmHg. ------ Findings Left Ventricle: Patient: ANDREWS VALENTE Study Date: 09/27/2023 10:58 AM Page 1 of 3 Left ventricle is moderately dilated. Severely abnormal systolic LV function. Severe global hypokinesis. Doppler parameters are consistent with abnormal left ventricular relaxation (Grade 1 diastolic dysfunction). Right Ventricle: Normal size right ventricle. Right ventricular systolic function is normal. Left Atrium: The left atrium is mildly dilated. Right Atrium: The right atrium is normal in size and appearance. Mitral Valve: Mitral leaflets exhibit normal cuspal separation. There is mild mitral thickening. Aortic Valve: Aortic Leaflets exhibit normal cuspal separation. Tricuspid Valve: Tricuspid valve leaflets are normal. Trivial tricuspid regurgitation. Pulmonic Valve: Pulmonic leaflets exhibit normal cuspal separation. Aorta: The ascending aorta is normal in size. The transverse aorta is normal in size. The aortic root exhibits normal size. Pericardium: Normal pericardium, including no pericardial effusion. --- Measurements Left Ventricle Aortic Valve Label Value Normal Value Label Value Normal Value LVOT Vmax 0.78 m/s (0.7m/s - 1.1m/s) AV Vmax 1.19 m/s LVOTd 2.1 cm (1.9cm - 2.1cm) AV Vmean 0.93 m/s LVOT VTI 16.00 cm (18cm - 22cm) AV VTI 26.00 cm LVOT PGmax 2 mmHg AV PGmax 6 mmHg LVDd, 2D 5.3 cm (4.2cm - 5.8cm) AV PGmean 4 mmHg LVDs, 2D 4.4 cm (2.5cm - 4cm) MAGALY D (continuity eq. 2.3 cm LVPWd, 2D 1.2 cm (0.6cm - 1cm) Vmax) FS, 2D 16.98 % MAGALY D (continuity eq. 2.1 cm LVEF, BP 25 % (52% - 72%) VTI) LVEF, 2D 35 % (52% - 72%) Mitral Valve LVEDV, BP 177 ml (62ml - 150ml) Label Value Normal Value LVSV, BP 69 ml MV Vmax 1.32 m/s EPSS, MM 2.7 cm (0.2cm - 0.7cm) MV Vmean 0.68 m/s LVEDV, 2D 135 ml MV VTI 27.70 cm LVESV, 2D 88 ml MVA D (continuity eq. 2.0 cm LVSV, 2D 47 ml Vmax) MV PGmax 7 mmHg Left Ventricular Diastolic Function Label Value Normal Value MV PGmean 2 mmHg MV E Vmax 0.60 m/s Tricuspid Valve MV A Vmax 1.00 m/s Label Value Normal Value MV E/A 0.60 RVSP 6 mmHg MV E/E' lateral 13.70 RA Pressure 3 mmHg MV E/E' septal 14.40 (0.45 - 1.25) TR Vmax 0.87 m/s MV DT 201 ms TR Pmax 3 mmHg MV E' septal 0.04 m/s Pulmonic Valve Label Value Normal Value Patient: ANDREWS VALENTE Study Date: 09/27/2023 10:58 AM Page 2 of 3 MV E' lateral 0.04 m/s PV Vmax 0.87 m/s MV E/E' mean 15.00 PV PGmax 3 mmHg MV E' mean 0.04 m/s Aorta Right Ventricle Label Value Normal Value Label Value Normal Value AoAsc 3.3 cm TAPSE, MM 1.8 cm (1.7cm - 99.9cm) AoArch 3.2 cm RVD Base 3.2 cm (2.5cm - 4.1cm) AoRoot, 2D 3 cm (2.7cm - 3.7cm) RVD Mid 2 cm (1.9cm - 3.5cm) RVD Long 6.9 cm (5.9cm - 8.3cm) Interventricular Septum Label Value Normal Valu (more content not included)... [facility] Comprehensive metabolic 1998 panelon 09-27-2023 Albumin BCG dye [Mass/Vol] 3.8 g/dL 3.2 - 4.8 g/dL [facility] Albumin/Globulin [Mass ratio] 1.5 {ratio} 0.9 - 2.0 [facility] ALP [Catalytic activity/Vol] 80 U/L [facility] ALT [Catalytic activity/Vol] 9 U/L Low [facility] Anion gap [Moles/Vol] 13.7 mmol/L 8.0 - 22.0 [facility] AST [Catalytic activity/Vol] 11 U/L NINF [facility] AST/Alanine aminotransferase [Catalytic ratio] 1.2 0.0 - 2.0 [facility] Bilirubin [Mass/Vol] 0.5 mg/dL 0.2 - 1.2 mg/dL [facility] Calcium [Mass/Vol] 8.2 mg/dL Low 8.7 - 10. 4 mg/dL [facility] Chloride [Moles/Vol] 103 mmol/L 99 - 109 mmol/L [facility] CO2 [Moles/Vol] 24 mmol/L 20 - 31 mmol/L [facility] Creatinine [Mass/Vol] 0.9 mg/dL 0.7 - 1.3 mg/dL [facility] Fasting status Reported Ql [facility] GFR/1.73 sq M.predicted MDRD (S/P/Bld) [Vol rate/Area] 96.6 mL/min/{1.73_m2} =>60 mL/min/1.73m* 2 [facility] Comment on above: CALCULATION BASED ON THE CHRONIC KIDNEY DISEASE EPIDEMIOLOGY COLLABORATION (CKD-EPI) EQUATION REFIT WITHOUT ADJUSTMENT FOR RACE. GFR LESS THAN 60 mL/min/1.73m2: SUGGESTIVE OF CHRONIC KIDNEY DISEASE. GFR LESS THAN 15 mL/min/1.73m2: SUGGESTIVE OF END STAGE RENAL DISEASE. Globulin (S) [Mass/Vol] 2.5 g/dL [facility] Glucose [Mass/Vol] 135 mg/dL High 74 - 106 mg/dL [facility] Comment on above: NOTE IF THIS IS A FASTING SPECIMEN THE FOLLOWING RANGES APPLY: NORMAL 70 TO 99 mg/dL PREDIABETIC 100 TO 125 mg/dL DIABETIC >= 126 mg/dL Interpretation and review of laboratory results Abnormal [facility] Osmolality Calc [Osmolality] 285 mosm/kg 275 - 305 mosm/kg [facility] Potassium [Moles/Vol] 3.7 mmol/L 3.6 - 5.1 mmol/L [facility] Protein [Mass/Vol] 6.3 g/dL 5.7 - 8.2 g/dL [facility] Sodium [Moles/Vol] 137 mmol/L 132 - 146 mmol/L [facility] Urea nitrogen [Mass/Vol] 10 mg/dL 9 - 23 mg/dL [facility] Urea nitrogen/Creatinine [Mass ratio] 11.1 mg/mg 6.0 - 20.0 [facility] HEPARIN, ANTI-XAOrdered By: Kae Valderrama on 09-27-2023 Heparin unfractionated Chromogenic method Qn (PPP) IU/mL [facility] Comment on above: UFH Therapeutic Range: 0.30 - 0.70 IU/mL LMWH Therapeutic Ranges(target anti-Xa levels measured 4 hours after dosing):0.5-1.0 IU/mL HEPARIN, ANTI-XAon Heparin unfractionated Chromogenic method Qn (PPP) 0.23 IU/mL [facility] Comment on above: UFH Therapeutic Range: 0.30 - 0.70 IU/mL LMWH Therapeutic Ranges(target anti-Xa levels measured 4 hours after dosing):0.5-1.0 IU/mL Heparin unfractionated Chromogenic method Qn (PPP) 0.20 IU/mL [facility] Comment on above: UFH Therapeutic Range: 0.30 - 0.70 IU/mL LMWH Therapeutic Ranges(target anti-Xa levels measured 4 hours after dosing):0.5-1.0 IU/mL HbA1c (Bld) [Mass fraction]O rdered By: Hilary Romero on 09-27-2023 Average glucose Estimated from glycated hemoglobin (Bld) [Moles/Vol] 163 mg/dL [facility] Interpretation and review of laboratory results Abnormal [facility] Hemoglobin [id number] By: [facility] felicitas Romero on 09-27-2023 HbA1c (Bld) [Mass fraction] 7.3 % High 4.1 - 5.6 % [facility] Comment on above: REFERENCE RANGE A1C: NORMAL = 4.1 TO 5.6 PREDIABETIC RANGE = 5.7 TO 6.4 DIABETIC RANGE = >= 6.5 Heparin unfractionated Chrom ogenic method Qn (PPP)Ordered By: Kae Valderrama on 09-27-2023 Interpretation and review of laboratory results Normal [facility] Heparin unfractionated Chrom ogenic method Qn (PPP)on 09-27-2023 Interpretation and review of laboratory results Normal [facility] Interpretation and review of laboratory results Normal [facility] Lipid 1995 panelon Cholesterol [Mass/Vol] 140 mg/dL NINF - 200 mg/dL [facility] Comment on above: THE NATIONAL CHOLESTEROL EDUCATION PROGRAM HAS PUBLISHED REFERENCE CHOLESTEROL VALUES FOR CARDIOVASCULAR RISK TO BE: DESIRABLE: LESS THAN 200 mg/dL BORDERLINE HIGH: 200-239 mg/dL HIGH: GREATER THAN EQUAL TO 240 mg/dL Cholesterol in HDL [Mass/Vol] 24 mg/dL Low 60 - PINF mg/dL [facility] Comment on above: CARDIOVASCULAR RISK: LOW - GREATER THAN OR EQUAL TO 60 mg/dL CARDIOVASCULAR RISK: HIGH - LESS THAN 40 mg/dL Cholesterol in LDL [Mass/Vol] 75 mg/dL 10 - 130 mg/dL [facility] Comment on above: RISK LEVELS: < 130 MG/DL: DESIRABLE LDL 130-159 MG/DL: BORDERLINE HIGH RISK LDL >OR= 160 MG/DL: HIGH RISK LDL Cholesterol.total/C holesterol in HDL [Mass ratio] 5.8 {ratio} High 0.1 - 4.0 [facility] Interpretation and review of laboratory results Abnormal [facility] Triglyceride [Mass/Vol] 203 mg/dL High NINF - 150 mg/dL [facility] Comment on above: NORMAL: LESS THAN 150 MG/DL BORDERLINE OR HIGH: 150-199 MG/DL HIGH: 200-499 MG/DL VERY HIGH: GREATER THAN OR EQUAL TO 500 MG/DL [facility] Basic metabolic 1997 panelon 09-26-2023 Anion gap [Moles/Vol] 10.3 mmol/L 8.0 - 22.0 [facility] Calcium [Mass/Vol] 9.0 mg/dL 8.7 - 10. 4 mg/dL [facility] Chloride [Moles/Vol] 102 mmol/L 99 - 109 mmol/L [facility] CO2 [Moles/Vol] 31 mmol/L 20 - 31 mmol/L [facility] Creatinine [Mass/Vol] 1.2 mg/dL 0.7 - 1.3 mg/dL [facility] Fasting status Reported Ql [facility] GFR/1.73 sq M.predicted MDRD (S/P/Bld) [Vol rate/Area] 68.4 mL/min/{1.73_m2} =>60 mL/min/1.73m* 2 [facility] Comment on above: CALCULATION BASED ON THE CHRONIC KIDNEY DISEASE EPIDEMIOLOGY COLLABORATION (CKD-EPI) EQUATION REFIT WITHOUT ADJUSTMENT FOR RACE. GFR LESS THAN 60 mL/min/1.73m2: SUGGESTIVE OF CHRONIC KIDNEY DISEASE. GFR LESS THAN 15 mL/min/1.73m2: SUGGESTIVE OF END STAGE RENAL DISEASE. Glucose [Mass/Vol] 108 mg/dL High 74 - 106 mg/dL [facility] Comment on above: NOTE IF THIS IS A FASTING SPECIMEN THE FOLLOWING RANGES APPLY: NORMAL 70 TO 99 mg/dL PREDIABETIC 100 TO 125 mg/dL DIABETIC >= 126 mg/dL Interpretation and review of laboratory results Abnormal [facility] Osmolality Calc [Osmolality] 288 mosm/kg 275 - 305 mosm/kg [facility] Potassium [Moles/Vol] 4.3 mmol/L 3.6 - 5.1 mmol/L [facility] Sodium [Moles/Vol] 139 mmol/L 132 - 146 mmol/L [facility] Urea nitrogen [Mass/Vol] 12 mg/dL 9 - 23 mg/dL [facility] Urea nitrogen/Creatinine [Mass ratio] 10.0 mg/mg 6.0 - 20.0 [facility] CBC W Auto Differential pane l (Bld)on 09-26-2023 Basophils (Bld) [#/Vol] 0.1 10*3/uL 0.0 - 0.1 10*3/uL [facility] Basophils/100 WBC (Bld) 0.7 % 0.0 - 1.0 % [facility] Eosinophils (Bld) [#/Vol] 0.1 10*3/uL 0.1 - 0.3 10*3/uL [facility] Eosinophils/100 WBC (Bld) 1.0 % 1.0 - 4.0 % [facility] Erythrocyte distribution width (RBC) [Ratio] 14.1 % 11.5 - 14.5 % [facility] Hematocrit (Bld) [Volume fraction] 48.0 % 41.0 - 53.0 % [facility] Hemoglobin (Bld) [Mass/Vol] 15.1 g/dL 13.5 - 17.5 g/dL [facility] Interpretation and review of laboratory results Abnormal [facility] Lymphocytes (Bld) [#/Vol] 1.4 10*3/uL 1.0 - 3.5 10*3/uL [facility] Lymphocytes/100 WBC (Bld) 16.7 % Low 24.0 - 44.0 % [facility] MCH (RBC) [Entitic mass] 27.2 pg 26.0 - 34.0 pg [facility] MCHC (RBC) [Mass/Vol] 31.5 g/dL 31.0 - 37.0 g/dL [facility] MCV (RBC) [Entitic vol] 86.6 fL 80.0 - 100.0 fL [facility] Monocytes (Bld) [#/Vol] 0.6 10*3/uL 0.1 - 1.0 10*3/uL [facility] Monocytes/100 WBC (Bld) 6.7 % 1.0 - 7.0 % [facility] Neutrophils (Bld) [#/Vol] 6.4 10*3/uL 1.6 - 7.5 10*3/uL [facility] Neutrophils/100 WBC (Bld) 74.9 % High 36.0 - 71.0 % [facility] Platelet mean volume (Bld) [Entitic vol] 6.9 fL Low 7.4 - 10.4 fL [facility] Platelets (Bld) [#/Vol] 246 10*3/uL 140 - 440 10*3/uL [facility] RBC (Bld) [#/Vol] 5.54 10*6/uL 4.50 - 5.9 0 10*6/uL [facility] WBC (Bld) [#/Vol] 8.6 10*3/uL 4.0 - 11.0 10*3/uL [facility] CBC panel Auto (Bld)on 09-26 Erythrocyte distribution width (RBC) [Ratio] 14.5 % 11.5 - 14.5 % [facility] Hematocrit (Bld) [Volume fraction] 47.4 % 41.0 - 53.0 % [facility] Hemoglobin (Bld) [Mass/Vol] 14.9 g/dL 13.5 - 17.5 g/dL [facility] Interpretation and review of laboratory results Abnormal [facility] MCH (RBC) [Entitic mass] 26.9 pg 26.0 - 34.0 pg [facility] MCHC (RBC) [Mass/Vol] 31.5 g/dL 31.0 - 37.0 g/dL [facility] MCV (RBC) [Entitic vol] 85.4 fL 80.0 - 100.0 fL [facility] Platelet mean volume (Bld) [Entitic vol] 6.9 fL Low 7.4 - 10.4 fL [facility] Platelets (Bld) [#/Vol] 245 10*3/uL 140 - 440 10*3/uL [facility] RBC (Bld) [#/Vol] 5.55 10*6/uL 4.50 - 5.9 0 10*6/uL [facility] WBC (Bld) [#/Vol] 7.9 10*3/uL 4.0 - 11.0 10*3/uL [facility] ER Troponin 1 Houron 023 Interpretation and review of laboratory results Abnormal [facility] Troponin I.cardiac DL <= 0.01 ng/mL [Mass/Vol] 300 pg/mL Critically high NINF - 47 pg/mL [facility] Comment on above: HIGH SENSITIVITY TROPONIN: Results greater than 47.34 are above the normal range (99th percentile). A change of 20% relative to baseline for values above the normal range is considered significant. Results less than 47.34 are within the normal range. Previous CRITICAL result verified on 09/26/20232017 on specimen/case [id number] called with component Troponin Baseline for procedure ER Troponin Baseline with value 292 pg/mL. [facility] ER Troponin 2 Houron 023 Interpretation and review of laboratory results Abnormal [facility] Troponin I.cardiac DL <= 0.01 ng/mL [Mass/Vol] 325 pg/mL Critically high NINF - 47 pg/mL [facility] Comment on above: HIGH SENSITIVITY TROPONIN: Results greater than 47.34 are above the normal range (99th percentile). A change of 20% relative to baseline for values above the normal range is considered significant. Results less than 47.34 are within the normal range. Previous CRITICAL result verified on 09/26/20232017 on specimen/case [id number] called with component Troponin Baseline for procedure ER Troponin Baseline with value 292 pg/mL. [facility] ER Troponin BaselineOrdered By: Marilyn Sinclair on 09-26-2023 Interpretation and review of laboratory results Abnormal [facility] Troponin I.cardiac DL <= 0.01 ng/mL [Mass/Vol] 292 pg/mL Critically high NINF - 47 pg/mL [facility] Comment on above: HIGH SENSITIVITY TROPONIN: Results greater than 47.34 are above the normal range (99th percentile). A change of 20% relative to baseline for values above the normal range is considered significant. Results less than 47.34 are within the normal range. [facility] HEPARIN, ANTI-XAon Heparin unfractionated Chromogenic method Qn (PPP) IU/mL [facility] Comment on above: UFH Therapeutic Range: 0.30 - 0.70 IU/mL LMWH Therapeutic Ranges(target anti-Xa levels measured 4 hours after dosing):0.5-1.0 IU/mL Heparin unfractionated Chrom ogenic method Qn (PPP)on 09-26-2023 Interpretation and review of laboratory results Normal [facility] Magnesiumon 09-26-2023 Magnesium [Mass/Vol] 2.0 mg/dL 1.5 - 2.3 mg/dL [facility] Magnesium [Mass/Vol]on 09-26 Interpretation and review of laboratory results Normal [facility] No Panel Informationon 09-26 Interpretation and review of laboratory results Normal [facility] PT Coag (Bld) [Time]on 09-26 INR Coag (PPP) [Relative time] 1.0 {INR} NINF - 5.4 [facility] Comment on above: 2.0-3.0 for Warfarin anticoagulation (levels up to 4.0 may be required in some clinical situations). Protime-INRon 09-26-2023 PT Coag (Bld) [Time] 10.6 s [facility] Urinalysis complete panel (U )on 09-26-2023 Bacteria LM.HPF (Urine sed) [#/Area] None Seen None /HPF [facility] Bilirubin Ql (U) Negative Negative [facility] Clarity (U) Clear Clear [facility] Color (U) Yellow Yellow [facility] Glucose Ql (U) Negative Negative mg/dL [facility] Hemoglobin Ql (U) Negative Negative [facility] Ketones (U) [Mass/Vol] Negative Negative mg/dL [facility] Leukocyte esterase Test strip Ql (U) Negative Negative [facility] Nitrite Auto test strip Ql (U) Negative Negative [facility] pH (U) 5.5 [pH] 4.5 - 8.0 pH [facility] Protein (U) [Mass/Vol] Negative Negative mg/dL [facility] Specific gravity (U) [Rel density] 1.006 [facility] Urobilinogen Ql (U) 0.2 mg/dL 0.2 - 1. 0 mg/dL [facility] XR Chest GE 4 [employer]son 2022 1. No acute cardiopu lmonary process. [facility] Portable AP view of the chest: COMPARISON: 09/07/2022 FINDINGS: Cardiac silhouette is stable. There is no mediastinal widening. Pulmonary vascularity is within normal limits.No confluent airspace consolidation, pleural effusion or pneumothorax is identified. No acute osseous abnormality is identified. [facility] Cm Landry, DO - 09/26/2023 Portable AP view of the chest: COMPARISON: 09/07/2022 FINDINGS: Cardiac silhouette is stable. There is no mediastinal widening. Pulmonary vascularity is within normal limits.No confluent airspace consolidation, pleural effusion or pneumothorax is identified. No acute osseous abnormality is identified. IMPRESSION: 1. No acute cardiopulmonary process. [facility] Radiology Study observation (narrative) [facility] XR Chest GE 4 ViewsOrdered B y: Cm Landry on 09-26-2023 [facility] Work Phone: aPTT Coag (Bld) [Time]on aPTT Coag (PPP) [Time] 26.2 s [facility] Comment on above: REFERENCE RANGE FOR PATIENTS ON HEPARIN ANTICOAGULANT: 43.8-64.0 SECONDS. POC Influenza A/B and SARS A ntigen manually resultedOrdered By: Arvind Coffey on 03-16-2022 FLUAV Ag IA.rapid Ql (Nph) Negative Negative [facility] FLUBV Ag IA.rapid Ql (Nph) Negative Negative [facility] INTERNAL CONTROLS Acceptable [facility] SARS-CoV+SARS-CoV-2 (COVID-19) Ag IA.rapid Ql (Resp) Negative Presumptive Negative [facility] Basic Metabolic Panelon 06-0 Anion gap molar conc 11.0 mmol/L Normal 6.0-18.0 [facility] Comment on above: Performed By: #### 6 9405-9, 26302-3j4, 32521-9 ####[facility], [address], [place]. Calcium mass conc 9.3 mg/dL Normal 8.9-10.3 [facility] Comment on above: Performed By: #### 6 9405-9, 47874-3t7, 14045-3 ####[facility], [address] [place], [place]. Chloride molar conc 103 mmol/L Normal 98-107 [facility] Comment on above: Performed By: #### 6 9405-9, 53181-4o5, 37446-4 ####[facility], [address] [place], [place]. CO2 molar conc 22 mmol/L Normal 22-32 [facility] Comment on above: Performed By: #### 6 9405-9, 20075-9w5, 54351-2 ####[facility], [address] [place], [place]. Creatinine mass conc 1.15 mg/dL Normal 0.66-1.30 [facility] Comment on above: Performed By: #### 6 9405-9, 21031-0t3, 84530-1 ####[facility], [address] [place], [place]. Glucose mass conc 175 mg/dL High 70-99 [facility] Comment on above: Result Comment: U pdated ADA Reference Range A normal fasting glucose concentration is less than 100 mg/dL. An impaired fasting glucose concentration is 100-125 mg/dL. A provisional diagnosis of diabetes mellitus can be made when a fasting glucose concentration is greater than 125 mg/dL. Performed By: #### 6 9405-9, 52457-6r6, 59059-7 ####[facility], [address] [place], [place]. Potassium molar conc 3.8 mmol/L Normal 3.6-5.1 [facility] Comment on above: Performed By: #### 6 9405-9, 08586-1k3, 90247-4 ####[facility], [address] [place] [address]. Sodium molar conc 136 mmol/L Normal 136-145 [facility] Comment on above: Performed By: #### 6 9405-9, 75509-9y3, 54326-7 ####[facility], [address] [place], [place]. Urea nitrogen mass conc (BldV) 16 mg/dL Normal 8-20 [facility] Comment on above: Performed By: #### 6 9405-9, 00952-7a3, 90467-8 ####[facility], [address] [place], [place]. CBC with Differentialon -0 Basophils #/vol (Bld) 0.4 % Normal 0.0-2.0 [facility] Comment on above: Performed By: #### 5 7021-8 ####[facility], [address] [place] [address]. Basophils #/vol (Bld) 0.00 thou/mcL Normal 0.00-0.20 [facility] Comment on above: Performed By: #### 5 7021-8 ####[facility], [address] [place] [address]. Eosinophils #/vol (Bld) 0.10 thou/mcL Normal 0.00-0.70 [facility] Comment on above: Performed By: #### 5 7021-8 ####[facility], [address] [place] [address]. Eosinophils/100 WBC (Bld) 1.3 % Normal 0.0-7.0 [facility] Comment on above: Performed By: #### 5 7021-8 ####[facility], [address] [place] [address]. Erythrocyte distribution width Entitic volume (RBC) 14.0 % Normal 11.0-14.8 [facility] Comment on above: Performed By: #### 5 7021-8 ####[facility], [address] [place], [place]. Hematocrit Volume Fraction (Bld) 49.3 % High 39.0-49.0 [facility] Comment on above: Performed By: #### 5 7021-8 ####[facility], [address], [place]. Hemoglobin mass conc (Bld) 16.3 g/dL Normal 13.5-17.5 [facility] Comment on above: Performed By: #### 70-8 ####[facility], [address] [place], [place]. Lymphocytes #/vol (Bld) 1.20 thou/mcL Normal 1.00-4.80 [facility] Comment on above: Performed By: #### 70-8 ####[facility], [address], [place]. Lymphocytes/100 WBC (Bld) 20.9 % Low 22.0-44.0 [facility] Comment on above: Performed By: #### 70-8 ####[facility], [address], [place]. MCH Entitic mass (RBC) 27.1 Picograms Normal 27.0-34.0 [facility] Comment on above: Performed By: #### 7021-8 ####[facility], [address] [place], [place]. MCHC mass conc (RBC) 33.0 g/dL Normal 32.0-36.0 [facility] Comment on above: Performed By: #### 7021-8 ####[facility], [address], [place]. MCV Entitic volume (RBC) 82.2 fL Normal 80.0-97.0 [facility] Comment on above: Performed By: #### 70-8 ####[facility], [address] [facility] [place]. Monocytes #/vol (Bld) 0.50 thou/mcL Normal 0.00-0.90 [facility] Comment on above: Performed By: #### 5 7021-8 ####[facility], [address]. Monocytes/100 WBC (Bld) 9.2 % Normal 0.0-12.0 [facility] Comment on above: Performed By: #### 70-8 ####[facility], [address], [place]. Neutrophils #/vol (Bld) 3.90 thou/mcL Normal 1.80-7.70 [facility] Comment on above: Performed By: #### 7021-8 ####[facility], [facility] [place] Neutrophils/100 WBC (Bld) 68.2 % Normal 40.0-70.0 [facility] Comment on above: Performed By: #### 7021-8 ####[facility], [address] [facility] [place]. Platelet mean volume Entitic volume (Bld) 7.3 fL Normal 6.2-12.1 [facility] Comment on above: Performed By: #### 7021-8 ####[facility], [address] [facility]. Platelets #/vol (Bld) 206 thou/mcL Normal 142-424 [facility] Comment on above: Performed By: #### 7021-8 ####[facility], [address], [place]. RBC #/vol (Bld) 6.01 million/mcL High 4.30-5.70 [facility] Comment on above: Performed By: #### 7021-8 ####[facility], [address], [place]. WBC #/vol (Bld) 5.8 thou/mcL Normal 4.6-10.2 [facility] Comment on above: Performed By: #### 5 7021-8 ####[facility], [address] [place] [address]. GFRaaon 03-25-2019 GFR/1.73 sq M predicted among blacks MDRD vol rate/area (S/P/Bld) mL/min/{1.73_m2} Normal [facility] Comment on above: Result Comment: The MDRD equation has not been validated for those over 70 years, women, patients with serious co-morbid conditions, or with extremes of body size, muscle mass of nutritional status. Performed By: #### 6 9405-9, 41949-0p0, 92972-3 ####[facility], [address] [place] [address]. GFRbbon 03-25-2019 GFR/1.73 sq M predicted among non-blacks MDRD vol rate/area (S/P/Bld) mL/min/{1.73_m2} Normal [facility] Comment on above: Performed By: #### 6 9405-9, 22549-9m0, 51525-0 ####[facility], [address] [place] [address]. Glucose POCT (Uploaded)on Glucose mass conc 179 mg/dL High 70-99 [facility] Comment on above: Result Comment: Dejah tment ranges and critical values established by Patient Care Services. All follow-up actions were taken by [facility]. Performed By: #### 2 430-8 ####[facility] Glucose mass conc 204 mg/dL High 70-99 [facility] Comment on above: Result Comment: Dejah tment ranges and critical values established by Patient Care Services. All follow-up actions were taken by [facility] Care Services. Performed By: #### 2 430-8 ####[facility] Patient Summaryon 03-25-2019 Patient Summary PATIENT DISCHARGE INSTRUCTIONS If you are having an emergency and are not able to reach your physician, CALL 911 or go to the nearest emergency room and take this document with you. Zoila Ahmadi 03/25/19 12:07 [address] [place]. [address] PATIENT INFORMATION ---- Name: ANDREWS VALENTE Address: [address] [facility] [address] Age: 58 Years Phone: : 1960 12:00 [facility]N: [id number] Sex: Male Race: White Ethnicity: Not Hispan/Lat Admitted From: [facility] Medical Service: Internal Medicine Nurse Unit/Bed: (CO) 1EBS 9A92-66 Admit Date: 03/22/2019 08:14 PCP: Physician, PCP Unknown PHYSICIANS INVOLVED WITH CARE Attending Physicians: None found Admitting Physician: Abiodun Saha MD - Internal Medicine Primary Care Physician:Physician, PCP Unknown,Family Practice,,, - Consults: Fara PASTOR , Chinmay Jung Disease FOLLOW-UP APPOINTMENTS: Provider: Specialty: Address: Date: PCP Unknown Physician Family Practice 3 to 4 days Comment: Post hospital Discharge Diabetes management Provider: Specialty: Address: Date: Josselin Mejia [facility] Clinical Business Analyst Intern [address] [place] [id number] 04/01/19 10:15 am Provider: Specialty: Address: Date: Cardiology 3 to 4 days Comment: Please follow up with your psych therapist in [place] ALLERGIES: No Known Allergies No Known Medication Allergies MEASUREMENTS: Last Charted: Weight: 96.30 kg /212 lbs 5 oz ( 03/25/19 05:08:00 ) MEDICATIONS For: ANDREWS VALENTE This is your list of medication(s). Keep it with you at all times. Your doctor may have changed doses, add, held or stopped some of your medications. Please share this information with your family doctor. Carry this list of medications with you in case of an emergency. Update it when medications are stopped, doses are changed, or new medications (including debb-ked-wrysosf products) are added. Ask your doctor if you have any questions. THESE ARE THE MEDICATIONS YOU SHOULD BE TAKING aspirin (aspirin 81 mg oral tablet, chewable) 1 Tab(s) By Mouth once a day. carvedilol (carvedilol 6.25 mg oral tablet) 1 Tab(s) By Mouth with Breakfast and Dinner. Refills: 0. carvedilol (Coreg 12.5 mg oral tablet) 1 Tab(s) By Mouth Twice a day., see compliance furosemide (Lasix 20 mg oral tablet) 1 Tab(s) By Mouth once a day., see compliance losartan (Cozaar 50 mg oral tablet) 1 Tab(s) By Mouth once a day., see compliance MetFORMIN (metFORMIN 500 mg oral tablet) 1 Tab(s) By Mouth Twice a day for 30 Days. Refills: 0. rosuvastatin (Crestor 20 mg oral tablet) 1 Tab(s) By Mouth Bedtime. Refills: 2., see compliance spironolactone (Aldactone 25 mg oral tablet) 1 Tab(s) By Mouth Twice a day. Refills: 2., see compliance ticagrelor (ticagrelor 90 mg oral tablet) 1 Tab(s) By Mouth every 12 hours. Refills: 11. MEDICATION CHANGE DETAILS (Not your Final Home Medication List) During the course of your visit, your home medication list was updated with the most current information. The details of those changes are shown below: NEW MEDICATIONS [facility], [address], [place] [id number], [phone] MetFORMIN (metFORMIN 500 mg oral tablet) 1 Tab(s) By Mouth Twice a day for 30 Days. Refills: 0. Comment ticagrelor (ticagrelor 90 mg oral tablet) 1 Tab(s) By Mouth every 12 hours. Refills: 11. Comment UPDATED MEDICATIONS [facility], [address] [place], [place] [id number], [phone] Start: carvedilol (carvedilol 6.25 mg oral tablet) 1 Tab(s) By Mouth with Breakfast and Dinner. Refills: 0. Comment Start: rosuvastatin (Crestor 20 mg oral tablet) 1 Tab(s) By Mouth Bedtime. Refills: 2., see compliance Comment Start: spironolactone (Aldactone 25 mg oral tablet) 1 Tab(s) By Mouth Twice a day. Refills: 2., see compliance Comment Other Medications Start: aspirin (aspirin 81 mg oral tablet, chewable) 1 Tab(s) By Mouth once a day. Comment Start: carvedilol (Coreg 12.5 mg oral tablet) 1 Tab(s) By Mouth Twice a day., see compliance Comment UNCHANGED MEDICATIONS Other Medications furosemide (Lasix 20 mg oral tablet) 1 Tab(s) By Mouth once a day., see compliance Comment losartan (Cozaar 50 mg oral tablet) 1 Tab(s) By Mouth once a day., see compliance Comment STOP TAKING THESE MEDICATIONS None DO NOT TAKE UNTIL YOU TALK TO YOUR DOCTOR None NON-MEDICATION PRESCRIPTION SCHEDULING PHONE NUMBER: EDUCATION MATERIALS GIVEN: Teaching Method Comment-Cardiac: Gave/Reviewed [facility] SELECTED LAB RESULTS Lab Result Order Date Hemoglobin 16.3 gm/dL 03/25/2019 Hematocrit 49.3 % 03/25/2019 WBC Count 5.8 thou/mcL 03/25/2019 Platelet Count 206 thou/mcL 03/25/2019 Sodium Level 136 mMol/L 03/25/2019 Potassium Level 3.8 mMol/L 03/25/2019 Creatinine 1.15 mg/dL 03/25/2019 BUN 16 mg/dL 03/25/2019 Hemoglobin A1c 10.9 % tl hgb 03/23/2019 Glucose Level 175 mg/dL 03/25/2019 ADVANCE DIRECTIVE/HEALTH CARE DECISIONS: Advance Directive/Health Care Decisions Executed by Patient: : No Information Obtained From: Patient Advance Directive Health Care Information Offered: Patient declines SUICIDE HOTLINE: Your mental and emotional well-being are important. If you are in a mental health crisis, or having thoughts of suicide, please call the nationwide suicide hotline, anytime day or night, at 5-434-454-HAVO. Important information about accessing your health information through the [facility] patient portal If you initiated the self-registration process for [facility] during your stay, please check your personal email for an invitation to enroll in [facility] and complete the steps outlined in the email. If you would prefer to enroll while in the hospital, ask a member of your care team. We would be happy to assist you. If you have already enrolled in [facility], go to [email or web address] to login and access your health information. Thank you for choosing Zoila Brice[facility]. PATIENT EDUCATION Diabetes Mellitus and Food It is important for you to manage your blood sugar (glucose) level. Your blood glucose level can be greatly affected by what you eat. Eating healthier foods in the appropriate amounts throughout the day at about the same time each day will help you control your blood glucose level. It can also help slow or prevent worsening of your diabetes mellitus. Healthy eating may even help you improve the level of your blood pressure and reach or maintain a healthy weight. General recommendations for healthful eating and cooking habits include: ???Eating meals and snacks regularly. Avoid going long periods of time without eating to lose weight. ???Eating a diet that consists mainly of plant-based foods, such as fruits, vegetables, nuts, legumes, and whole grains. ???Using low-heat cooking methods, such as baking, instead of high-heat cooking methods, such as deep frying. Work with your dietitian to make sure you understand how to use the Nutrition Facts information on food labels. HOW CAN FOOD AFFECT ME? Carbohydrates Carbohydrates affect your blood glucose level more than any other type of food. Your dietitian will help you determine how many carbohydrates to eat at each meal and teach you how to count carbohydrates. Counting carbohydrates is important to keep your blood glucose at a healthy level, especially if you are using insulin or taking certain medicines for diabetes mellitus. Alcohol Alcohol can cause sudden decreases in blood glucose (hypoglycemia), especially if you use insulin or take certain medicines for diabetes mellitus. Hypoglycemia can be a life-threatening condition. Symptoms of hypoglycemia (sleepiness, dizziness, and disorientation) are similar to symptoms of having too much alcohol. If your health care provider has given you approval to drink alcohol, do so in moderation and use the following guidelines: ???Women should not have more than one drink per day, and men should not have more than two drinks per day. One drink is equal to: ???12 oz of beer. ???5 oz of wine. ???1? oz of hard liquor. ???Do not drink on an empty stomach. ???Keep yourself hydrated. Have water, diet soda, or unsweetened iced tea. ???Regular soda, juice, and other mixers might contain a lot of carbohydrates and should be counted. WHAT FOODS ARE NOT RECOMMENDED? As you make food choices, it is important to remember that all foods are not the same. Some foods have fewer nutrients per serving than other foods, even though they might have the same number of calories or carbohydrates. It is difficult to get your body what it needs when you eat foods with fewer nutrients. Examples of foods that you should avoid that are high in calories and carbohydrates but low in nutrients include: ???Trans fats (most processed foods list trans fats on the Nutrition Facts label). ???Regular soda. ???Juice. ???Candy. ???Sweets, such as cake, pie, doughnuts, and cookies. ???Fried foods. WHAT FOODS CAN I EAT? Eat nutrient-rich foods, which will nourish your body and keep you healthy. The food you should eat also will depend on several factors, including: ???The calories you need. ???The medicines you take. ???Your weight. ???Your blood glucose level. ???Your blood pressure level. ???Your cholesterol level. You should eat a variety of foods, including: ???Protein. ???Lean cuts of meat. ???Proteins low in saturated fats, such as fish, egg whites, and beans. Avoid processed meats. ???Fruits and vegetables. ???Fruits and vegetables that may help control blood glucose levels, such as apples, mangoes, and yams. ???Dairy products. ???Choose fat-free or low-fat dairy products, such as milk, yogurt, and cheese. ???Grains, bread, pasta, and rice. ???Choose whole grain products, such as multigrain bread, whole oats, and brown rice. These foods may help control blood pressure. ???Fats. ???Foods containing healthful fats, such as nuts, avocado, olive oil, canola oil, and fish. DOES EVERYONE WITH DIABETES MELLITUS HAVE THE SAME MEAL PLAN? Because every person with diabetes mellitus is different, there is not one meal plan that works for everyone. It is very important that you meet with a dietitian who will help you create a meal plan that is just right for you. This information is not intended to replace advice given to you by your health care provider. Make sure you discuss any questions you have with your health care provider. Document Released: 07/06/2006 Document Revised: 10/30/2015 Document Reviewed: 09/05/2014 [employer] Interactive Patient Education ?2016 [employer] Blood Glucose Monitoring, Adult Monitoring your blood glucose (also know as blood sugar) helps you to manage your diabetes. It also helps you and your health care provider monitor your diabetes and determine how well your treatment plan is working. WHY SHOULD YOU MONITOR YOUR BLOOD GLUCOSE?It can help you understand how food, exercise, and medicine affect your blood glucose. ???It allows you to know what your blood glucose is at any given moment. You can quickly tell if you are having low blood glucose (hypoglycemia) or high blood glucose (hyperglycemia). ???It can help you and your health care provider know how to adjust your medicines. ???It can help you understand how to manage an illness or adjust medicine for exercise. WHEN SHOULD YOU TEST? Your health care provider will help you decide how often you should check your blood glucose. This may depend on the type of diabetes you have, your diabetes control, or the types of medicines you are taking. Be sure to write down all of your blood glucose readings so that this information can be reviewed with your health care provider. See below for examples of testing times that your health care provider may suggest. Type 1 Diabetes ???Test at least 2 times per day if your diabetes is well controlled, if you are using an insulin pump, or if you perform multiple daily injections. ???If your diabetes is not well controlled or if you are sick, you may need to test more often. ???It is a good idea to also test: ???Before every insulin injection. ???Before and after exercise. ???Between meals and 2 hours after a meal. ???Occasionally between 2:00 a.m. and 3:00 a.m. Type 2 Diabetes ???If you are taking insulin, test at least 2 times per day. However, it is best to test before every insulin injection. ???If you take medicines by mouth (orally), test 2 times a day. ???If you are on a controlled diet, test once a day. ???If your diabetes is not well controlled or if you are sick, you may need to monitor more often. HOW TO MONITOR YOUR BLOOD GLUCOSE Supplies Needed ???Blood glucose meter. ???Test strips for your meter. Each meter has its own strips. You must use the strips that go with your own meter. ???A pricking needle (lancet). ???A device that holds the lancet (lancing device). ???A journal or log book to write down your results. Procedure ???Wash your hands with soap and water. Alcohol is not preferred. ???Prick the side of your finger (not the tip) with the lancet. ???Gently milk the finger until a small drop of blood appears. ???Follow the instructions that come with your meter for inserting the test strip, applying blood to the strip, and using your blood glucose meter. Other Areas to Get Blood for Testing Some meters allow you to use other areas of your body (other than your finger) to test your blood. These areas are called alternative sites. The most common alternative sites are: ???The forearm. ???The thigh. ???The back area of the lower leg. ???The palm of the hand. The blood flow in these areas is slower. Therefore, the blood glucose values you get may be delayed, and the numbers are different from what you would get from your fingers. Do not use alternative sites if you think you are having hypoglycemia. Your reading will not be accurate. Always use a finger if you are having hypoglycemia. Also, if you cannot feel your lows (hypoglycemia unawareness), always use your fingers for your blood glucose checks. ADDITIONAL TIPS FOR GLUCOSE MONITORING ???Do not reuse lancets. ???Always carry your supplies with you. ???All blood glucose meters have a 24-hour hotline number to call if you have questions or need help. ???Adjust (calibrate) your blood glucose meter with a control solution after finishing a few boxes of strips. BLOOD GLUCOSE RECORD KEEPING It is a good idea to keep a daily record or log of your blood glucose readings. Most glucose meters, if not all, keep your glucose records stored in the meter. Some meters come with the ability to download your records to your home computer. Keeping a record of your blood glucose readings is especially helpful if you are wanting to look for patterns. Make notes to go along with the blood glucose readings because you might forget what happened at that exact time. Keeping good records helps you and your health care provider to work together to achieve good diabetes management. This information is not intended to replace advice given to you by your health care provider. Make sure you discuss any questions you have with your health care provider. Document Released: 10/11/2004 Document Revised: 10/30/2015 Document Reviewed: 03/03/2014 [employer] Interactive Patient Education ?2016 [employer]. Diabetes A1C Testing Health Education A1C testing is important for everyone who has diabetes. Keeping your diabetes in good control helps you stay healthy and lower your risk of complications. A1C testing is one way to check how well you are managing your diabetes. It tells you what your blood sugar levels have been over the past 2 to 3 months. How the Test Works The A1C test measures how much sugar is attached to your hemoglobin molecule, which is a protein in a red blood cell that carries oxygen to your body. Sugar sticks to hemoglobin for the life of the molecule - about 90 to 120 days. More sugar sticks to your hemoglobin when there is more sugar in your blood. This results in a higher A1C number. What the Number Means If your A1C number is: Your average blood sugar level has been: 5% 80-111 6% 112-140 7% 141-168 8% 169-197 9% 198-226 10% 227-254 11% 255-283 12% 284-308 13% 309 or greater The A1C test is done at your doctor's office or in a lab. A1C test kits can also be purchased from your local pharmacy. Although A1C levels may vary from lab to lab, people without diabetes will have an A1C between 4 and 6%. The A1C goal for people with diabetes is less than 7% according to the [place] [employer]. Effects of A1C Above 7% When you have an A1C test higher than 7%, your diabetes is not well controlled. High blood sugars over a long period of time can cause damage to large and small blood vessels. The longer your diabetes is not in good control, the more you are at risk for diabetes complications such as: ?? Heart disease or heart attack ?? Stroke ?? Kidney disease or failure ?? Eye disease or blindness ?? Nerve damage ?? Circulation problems ?? Amputations ?? Sexual dysfunction You can help prevent these complications by keeping your diabetes in good control. Any drop in the A1C test reduces your risk for complications. A1C results above 7% may be due to: ?? Not enough exercise ?? Not enough medication or insulin ?? Too much food or large portion sizes ?? The wrong kinds of foods - too many carbohydrate foods ?? Stress ?? Illness, surgery, or an infection You cannot change your A1C test result in a day or two. It takes weeks of good diabetes management. A1C Testing does not replace testing your blood sugar daily at home. You need to test at home as instructed to know what your blood sugar is at that time on that day to manage your diabetes well. How often A1C should be tested The [place] [employer] recommends that the A1C test be done: ?? Every 3 months if you have an A1C result greater than 7%. ?? Every 6 months if your A1C result is less than 7%. Everyone needs to know their number. Work with your doctor, nurse or dietitian if your number is above 7%. Talk with them about any questions or concerns. You can also check: [place] [employer] www.diabetes.org Dev. 02/2006, Rev. 10/31, 12/04, 11/06 ?? [facility] You have agreed to be part of the [facility]. For your convenience, your discharge medications will be brought to your room before you leave the hospital. If you need a refill on other medications before you leave or when you get home please let us know! We will call your local pharmacy or inform your doctor of your medication needs. Do not wait until you are out of medication. Plan Ahead! Your medications have been filled through [facility] located at [address] [place] [address] Pharmacy Hours: Monday-Monday 8am-6pm, Monday 9am-1pm Interventional Procedure Discharge Instructions You have had a Cardiac Catheterization from a Radial Artery Access Site. Call 911 (DO NOT DRIVE) for emergency help if you have any of these symptoms: - Chest pain or angina lasting longer than 5 minutes. While waiting for help, if your doctor prescribed Nitroglycerin, take one. If the pain continues, take another Nitroglycerin 5 minutes apart for a total of 3 pills or sprays. - Any signs of a stroke: slurred speech, problems talking or understanding speech, changes in vision, weakness, tingling or numbness in an arm or leg. - Severe shortness of breath. - Fainting or passing out. - Temperature of 102 degrees F (38.9 degrees C) or greater. - If bleeding occurs at home: a. Do not panic. b. Place 1 or 2 fingers over the puncture site and hold pressure to stop bleeding. c. Lift your fingers after 5 minutes to see if the bleeding has stopped. d. If the bleeding does not stop after 30 minutes or there is a large amount of bleeding or spurting, call [address]. [address] to the hospital. Observe your site for the next 3 days. Bruising is normal. Call your doctor at i f you have any questions or concerns or if you have any of these symptoms within 3-7 days after your procedure: - Yellow or green drainage (pus), redness or inflammation at the site. - Chills or a fever of 100.5 degrees F (38.1 degrees C) or greater or rash. - An increase in pain or burning at the site. - Swelling, severe pain, coldness, or on-going numbness in the arm below the puncture site. - Change in color or temperature of arm or hand. - Inability to move the fingers. Activity - Do not use affected arm/wrist for 24 hours following the procedure. - After the first 24 hours, do not move or lift anything heavier than 5 pounds for 48 hours. -You may resume normal activity after 48 hours. - Do not drive for 3 days. - You may shower after 24 hours. - Do not use a hot tub, take a tub bath or swim for 1 week. - You may resume sexual activity in 48 to 72 hours. - You may return to work as instructed by your doctor. Site Care: Arterial/Venous Access site is: Radial Artery - Do not use lotion or powder near the access site for 1 week. - Remove dressing/Band-Aid when showering. Gently clean site with mild soap and water. Dry well and reapply a Band-Aid daily for 5 days or until site is healed. Change Band-Aid if site becomes soiled or wet. Diet: You may eat your normal foods unless your doctor ordered a change in your diet. You have received x-ray dye (contrast media) during your procedure. Drink plenty of fluids (64 ounces per day for 2 to 3 days) to flush out the x-ray dye. If Clopidogrel (Plavix??), Prasugrel (Effient??), Ticagrelor (Brilinta??), or Aspirin have been prescribed for you, do not stop taking without the advice of your psych therapist. Resume Metformin (Glucophage??) or any metformin containing medication in 48 hours. If you smoke, you must quit. Ask your doctor or nurse for information on quitting smoking. You can also call the [facility] Tobacco Quit Line at or visit www.smokefree. gov. You can contact [facility] at [phone] ([phone]). You may also contact your local hospital for more information. __ Patient advised to enroll in a Cardiac Rehab Program. If any of these instructions are different from what your doctor tells you, follow your doctor's orders. Coronary Angiogram With Stent Coronary angiography with stent placement is a procedure to widen or open a narrow blood vessel of the heart (coronary artery). When a coronary artery becomes partially blocked, it decreases blood flow to that area. This may lead to chest pain or a heart attack (myocardial infarction). Arteries may become blocked by cholesterol buildup (plaque) in the lining or wall. A stent is a small piece of metal that looks like a mesh or a spring. Stent placement may be done right after a coronary angiography in which a blocked artery is found or as a treatment for a heart attack. LET YOUR HEALTH CARE PROVIDER KNOW ABOUT: ???Any allergies you have. ?All medicines you are taking, including vitamins, herbs, eye drops, creams, and oyyo-dki-bsrjnll medicines. ?Previous problems you or members of your family have had with the use of anesthetics. ?Any blood disorders you have. ?Previous surgeries you have had. ?Medical conditions you have. RISKS AND COMPLICATIONS Generally, coronary angiography with stent is a safe procedure. However, problems can occur and include: ???Damage to the heart or its blood vessels. ?A return of blockage. ?Bleeding, infection, or bruising at the insertion site. ?A collection of blood under the skin (hematoma) at the insertion site. ???Blood clot in another part of the body. ?Kidney injury. ?Allergic reaction to the dye or contrast used. ?Bleeding into the abdomen (retroperitoneal bleeding). BEFORE THE PROCEDURE ???Do not eat or drink anything after midnight on the night before the procedure or as directed by your health care provider.?Ask your health care provider about changing or stopping your regular medicines. This is especially important if you are taking diabetes medicines or blood thinners. ???Your health care provider will make sure you understand the procedure as well as the risks and potential problems associated with the procedure. ? PROCEDURE ???You may be given a medicine to help you relax before and during the procedure (sedative). This medicine will be given through an IV tube that is put into one of your veins. ?The area where the catheter will be inserted will be shaved and cleaned. This is usually done in the groin but may be done in the fold of your arm (near your elbow) or in the wrist. ?A medicine will be given to numb the area where the catheter will be inserted (local anesthetic). ?The catheter will be inserted into an artery using a guide wire. A type of X-ray (fluoroscopy) will be used to help guide the catheter to the opening of the blocked artery. ?A dye will then be injected into the catheter, and X-rays will be taken. The dye will help to show where any narrowing or blockages are located in the heart arteries. ?A tiny wire will be guided to the blocked spot, and a balloon will be inflated to make the artery wider. The stent will be expanded and will crush the plaque into the wall of the vessel. The stent will hold the area open like a scaffolding and improve the blood flow. ?Sometimes the artery may be made wider using a laser or other tools to remove plaque. ?When the blood flow is better, the catheter will be removed. The lining of the artery will grow over the stent, which stays where it was placed. ? AFTER THE PROCEDURE ???If the procedure is done through the leg, you will be kept in bed lying flat for about 6 hours. You will be instructed to not bend or cross your legs. ?The insertion site will be checked frequently. ?The pulse in your feet or wrist will be checked frequently. ?Additional blood tests, X-rays, and electrocardiography may be done. This information is not intended to replace advice given to you by your health care provider. Make sure you discuss any questions you have with your health care provider. Document Released: 04/14/2004 Document Revised: 10/30/2015 Document Reviewed: 04/17/2014 Elsevier Interactive Patient Education ?2016 [employer]. PATIENT DISCHARGE INSTRUCTION Signature Page for: ANDREWS VALENTE Date/Time: 03/25/2019 12:07:55 A Clinician has explained the information on my discharge instructions and has provided me with a copy. My questions have been answered to my satisfaction. Patient Signature Date/Time Responsible Party Date/Time Relationship to Patient Clinician Signature ___ Date/Time _ Normal [facility] Progress Noteson 03-25-2019 Protein mass conc Patient: Bekah VALENTE MRN: [id number] Age: 58 years Sex: Male : 1960 Associated Diagnoses: None Author: Saima Zhu CNP Supervising Physician Comments Documentation By: Nurse Practitioner. Comments pts family member arrived to pick him up and she had a list of meds that he was out of. I sent refills into our pharmacy. She and he now have decided that they want to followup in our office as well, threfore I scheuled and appt next week with Josselin Mejia [employer] Normal [facility] Protein mass conc Patient: Bekah VALENTE MRN: [id number] Age: 58 years Sex: Male : 1960 Associated Diagnoses: None Author: Marko CHAIREZ , Saima Supervising Physician Comments Documentation By: Nurse Practitioner. Collaborating Physician: Dr Vera Chief Complaint 58-year-old male with a history of heart catheterization just over one year ago reportedly showing mild coronary disease. He presented to [facility] with precordial chest discomfort/pressure dyspnea and diaphoresis while at work. EMS called and EKG showed findings suggestive of acute myocardial infarction. Subjective Doing well this am, denies chest pain, shortness of breath. He is hoping to go home Assessment STEMI-posterior -sp drug eluting stent to mid CX, prox and mid LAD -echocardiogram shows EF 40-45% with severe hypokinesis of mid to distal anteroseptum. There was abnormal Apical motion. There was also suggestion of mild hypokinesia of the basal and mid inferoseptal segments. -Troponin 1.03 -Continue DAPT with aspirin 81 mg daily/lifelong and Brilinta for at least 12 months. (he has Brilinta at bedside) - Reveiwed rationale for un-interrupted dual antiplatelet therapy and risk of acute stent thrombosis. -Continue statin therapy with Crestor -Continue beta celeste therapy with carvedilol. Continue ARB with losartan -Cardiac rehabilitation per primary psych therapist. -NitroSTAT prn at dc -Follow-up with Dr. Granado (his normal psych therapist) in [place] 2. DM 3.ischemic cardiomyopathy -by history. EF 40-45% with wall motion abnormalities -pt had been on crestor, losartan, lasix, spironolactone and carvedilol at home -on carvedilol, losartan and spironolactone 25 mg daily (he had been on BID at home, increase at dc as BP is up and labs stable) . contiue with furosemide 20 mg daily as well 4. LBBB -on ECG 5. AV Block -Pt had 2nd degree AV block yesterday for approx 30 seconds that at times was 2:1 wenchebach. Concern with his LBBB. -May need to consider an event monitor as OP as well, however will defer to OP cardio - no further on the tele Plan ok for dc to home followup with primary cardio- consider HM, EM Diagnostics: Cardiac cath 03/22/2019 Procedure Summary Acute Posterior CA Successful PCI of Mid LCx, Prox/Mid LAD with IVUS optimization Small intimal tear in mid/distal LM after initial pass with coronary guidewire was at no time flow limiting. Improved appearance throughout procedure and IVUS did not reveal an intimal flap, completion angiography shows resolution of this angiographic appearance as well thus PCI of distal LM deferred. Vessel size is large at 6.1 X 5.5 and thus available stents may not fully oppose to entire LM lumen. Recommendations DAPT for one year with Brilinta HDST BB, luisito as tolerated Echo Cardiac Rehab Echocardiogram 03/22/2019 Technically difficult study with suboptimal definition of detail. Definity echo-contrast was utilized for left ventricular opacification. On of the segments of the left ventricle are not ideally visualized. Mild left ventricular hypertrophy. LVEF of 40-45%. Severe hypokinesia of the mid to distal anteroseptum. Apical motion is abnormal. There is also suggestion of mild hypokinesia of the basal and mid inferoseptal segments. No gross valvular disease present. Grossly normal right ventricular size and function. Grade 1 diastolic dysfunction. Objective Last Charted Vital Signs Temperature: 98.2 (03/25 08:15) Pulse: 74 (03/25 08:15) Respiration: 16 (03/25 08:15) BP: 154/96 (03/25 08:15) Pulse Ox: 97 (03/25 08:15) Oxygen Delivery: Room air (03/25 03:00) Pain Score: 0 (03/25 05:06) Intake and Output (Previous 24Hrs) I and O Summary Begin date: 03/24 08:24 End date: 03/25 08:24 24 Hour Intake: 840.00 Output: 0.00 Balance: 840.00 Last BM: No BM Charted Measurements Height: 182.88 cm /72.00 in (Pt reported) (03/22/2019 09:31:00) Weight: 96.3 kg/ 212 lbs 4.9 oz (Type not Indicated) (03/25/2019 05:08:00) Body Surface Area: 2.21 m2 Body Mass Index: 28.79 General Exam: Alert and oriented x3, vital signs stable, no acute distress. Respiratory Lungs: clear to auscultation, breath sounds equal, no wheezing, no rhonchi, no rales. Cardiovascular Exam: Regular rate and rhythm. Heart sounds: S1, S2. Test results via. Arterial pulses:: good pulses equal in all extremities. Electrocardiographic rhythm: normal sinus rhythm. No Gallop. No Clicks. Gastrointestinal Exam: bowel sounds present, no distention. Integumentary General: intact, warm, dry. right wrist cath site without ecchymosis or hematoma. Neurologic Exam: Alert and oriented x 3. Psychiatric Exam: alert, appropriate, calm, cooperative. Results Review Labs - Last 36 hours (Max 2 / lab test) CHEMISTRY Sodium 137 (03/24 04:42) Potassium 3.6 (03/24 04:42) Chloride 105 (03/24 04:42) CO2 22 (03/24 04:42) Glucose 168 (03/24 04:42) Glucose POCT No result BUN 15 (03/24 04:42) Creatinine 1.02 (03/24 04:42) Calcium Total 8.6 (03/24 04:42) Magnesium No result HEMATOLOGY WBC 5.8 (03/25 05:05) 6.8 (03/24 04:42) RBC 6.01 (03/25 05:05) 5.75 (03/24 04:42) Hb 16.3 (03/25 05:05) 15.4 (03/24 04:42) Hematocrit 49.3 (03/25 05:05) 47.7 (03/24 04:42) Platelets 206 (03/25 05:05) 218 (03/24 04:42) MCV 82.2 (03/25 05:05) 82.9 (03/24 04:42) MCH 27.1 (03/25 05:05) 26.8 (03/24 04:42) RDW 14.0 (03/25 05:05) 14.0 (03/24 04:42) MCHC 33.0 (03/25 05:05) 32.3 (03/24 04:42) Neutrophil Ab 3.90 (03/25 05:05) 5.00 (03/24 04:42) Monocyte Ab 0.50 (03/25 05:05) 0.60 (03/24 04:42) Eosinophil Ab 0.10 (03/25 05:05) 0.10 (03/24 04:42) Basophil Ab 0.00 (03/25 05:05) 0.00 (03/24 04:42) Lymphocyte Ab 1.20 (03/25 05:05) 1.10 (03/24 04:42) OTHER LABS Anion Gap 10.0 mMol/L (03/24 04:) 7.0 mMol/L (03/23 04:) Est CrCl IBW (mL/min)-RX 87.70 mL/min (03/24 04:42) 83.60 mL/min (03/23 04:) GFR Est. Non >60 mL/min (03/24 04:) >60 mL/min (03/23 04:) GFR Est. Cynthia >60 mL/min (03/24) >60 mL/min (03/23 04:) Magnesium Level 2.1 mg/dL (03/23 04:) Troponin I 1.03 ng/mL (03/24 04:) Hemoglobin A1c 10.9 % tl hgb (03/23 04:) MPV 7.3 FL (03/25 05:05) 7.4 FL (03/24 04:42) Neutrophil 68.2 % (03/25 05:05) 74.2 % (03/24 04:42) Lymphocyte 20.9 % (03/25 05:05) 16.0 % (03/24 04:42) Monocyte 9.2 % (03/25 05:05) 8.4 % (03/24 04:42) Eosinophil 1.3 % (03/25 05:05) 1.1 % (03/24 04:42) Basophil 0.4 % (03/25 05:05) 0.3 % (03/24 04:42) Health Status Allergies Allergic Reactions (Selected) NKA No Known Medication Allergies Normal [facility] Basic Metabolic Panelon 060 Anion gap molar conc 10.0 mmol/L Normal 6.0-18.0 [facility] Comment on above: Performed By: #### 6 9405-9, 24375-3, 17481-0r0, 16992-2 ####[facility], [address], [place]. Calcium mass conc 8.6 mg/dL Low 8.9-10.3 [facility] Comment on above: Performed By: #### 6 9405-9, 31906-5, 60243-2i6, 77229-4 ####[facility], [address] [place], [place]. Chloride molar conc 105 mmol/L Normal 98-107 [facility] Comment on above: Performed By: #### 6 9405-9, 16730-3, 28408-4e3, 55901-4 ####[facility], [address], [place]. CO2 molar conc 22 mmol/L Normal 22-32 [facility] Comment on above: Performed By: #### 6 9405-9, 79380-9, 95066-4u4, 30357-0 ####[facility], [address], [place]. Creatinine mass conc 1.02 mg/dL Normal 0.66-1.30 [facility] Comment on above: Performed By: #### 6 9405-9, 93026-6, 44047-2v5, 41138-4 ####[facility], [address] [place], [place]. Glucose mass conc 168 mg/dL High 70-99 [facility] Comment on above: Result Comment: U pdated ADA Reference Range A normal fasting glucose concentration is less than 100 mg/dL. An impaired fasting glucose concentration is 100-125 mg/dL. A provisional diagnosis of diabetes mellitus can be made when a fasting glucose concentration is greater than 125 mg/dL. Performed By: #### 6 9405-9, 64913-3, 92637-3l0, 93927-4 ####[facility], [address] [place], [place]. Potassium molar conc 3.6 mmol/L Normal 3.6-5.1 [facility] Comment on above: Performed By: #### 6 9405-9, 23851-9, 61512-1f7, 60587-9 ####[facility], [address] [place], [place]. Sodium molar conc 137 mmol/L Normal 136-145 [facility] Comment on above: Performed By: #### 6 9405-9, 82254-8, 27679-5e2, 41560-9 ####[facility], [address] [place], [place]. Urea nitrogen mass conc (BldV) 15 mg/dL Normal 8-20 [facility] Comment on above: Performed By: #### 6 9405-9, 98386-7, 85496-3r1, 46408-0 ####[facility], [address] [place], [place]. CBC with Differentialon 06-0 2-2019 Basophils #/vol (Bld) 0.3 % Normal 0.0-2.0 [facility] Comment on above: Performed By: #### 5 7021-8 ####[facility], [address], [place]. Basophils #/vol (Bld) 0.00 thou/mcL Normal 0.00-0.20 [facility] Comment on above: Performed By: #### 7021-8 ####[facility], [address], [place]. Eosinophils #/vol (Bld) 0.10 thou/mcL Normal 0.00-0.70 [facility] Comment on above: Performed By: #### 70-8 ####[facility], [address] [place] Eosinophils/100 WBC (Bld) 1.1 % Normal 0.0-7.0 [facility] Comment on above: Performed By: #### 70-8 ####[facility], [facility] [place] Erythrocyte distribution width Entitic volume (RBC) 14.0 % Normal 11.0-14.8 [facility] Comment on above: Performed By: #### 7021-8 ####[facility], [facility] [place]. Hematocrit Volume Fraction (Bld) 47.7 % Normal 39.0-49.0 [facility] Comment on above: Performed By: #### 7021-8 ####[facility], [address] [facility] Hemoglobin mass conc (Bld) 15.4 g/dL Normal 13.5-17.5 [facility] Comment on above: Performed By: #### 7021-8 ####[facility], [address], [place]. Lymphocytes #/vol (Bld) 1.10 thou/mcL Normal 1.00-4.80 [facility] Comment on above: Performed By: #### 7020-8 ####[facility], [address] [facility] Lymphocytes/100 WBC (Bld) 16.0 % Low 22.0-44.0 [facility] Comment on above: Performed By: #### 7020-8 ####[facility], [address] [facility] MCH Entitic mass (RBC) 26.8 Picograms Low 27.0-34.0 [facility] Comment on above: Performed By: #### 7020-8 ####[facility], [address], [place]. MCHC mass conc (RBC) 32.3 g/dL Normal 32.0-36.0 [facility] Comment on above: Performed By: #### 7020-8 ####[facility], [facility] [place]. MCV Entitic volume (RBC) 82.9 fL Normal 80.0-97.0 [facility] Comment on above: Performed By: #### 7020-8 ####[facility], [facility] [place] Monocytes #/vol (Bld) 0.60 thou/mcL Normal 0.00-0.90 [facility] Comment on above: Performed By: #### 7020-8 ####[facility], [address], [place]. Monocytes/100 WBC (Bld) 8.4 % Normal 0.0-12.0 [facility] Comment on above: Performed By: #### 7020-8 ####[facility], [address] [facility] Neutrophils #/vol (Bld) 5.00 thou/mcL Normal 1.80-7.70 [facility] Comment on above: Performed By: #### 7020-8 ####[facility], [address] [place] [address]. Neutrophils/100 WBC (Bld) 74.2 % High 40.0-70.0 [facility] Comment on above: Performed By: #### 5 7021-8 ####[facility], [address] [place] [address]. Platelet mean volume Entitic volume (Bld) 7.4 fL Normal 6.2-12.1 [facility] Comment on above: Performed By: #### 5 7021-8 ####[facility], [address] [place] [address]. Platelets #/vol (Bld) 218 thou/mcL Normal 142-424 [facility] Comment on above: Performed By: #### 5 7021-8 ####[facility], [address] [place] [address]. RBC #/vol (Bld) 5.75 million/mcL High 4.30-5.70 [facility] Comment on above: Performed By: #### 5 7021-8 ####[facility], [address] [place] [address]. WBC #/vol (Bld) 6.8 thou/mcL Normal 4.6-10.2 [facility] Comment on above: Performed By: #### 5 7021-8 ####[facility], [address] [place] [address]. GFRaaon 03-24-2019 GFR/1.73 sq M predicted among blacks MDRD vol rate/area (S/P/Bld) mL/min/{1.73_m2} Normal [facility] Comment on above: Result Comment: The MDRD equation has not been validated for those over 70 years, women, patients with serious co-morbid conditions, or with extremes of body size, muscle mass of nutritional status. Performed By: #### 6 9405-9, 16764-5, 95710-8f6, 23949-1 ####[facility], [address] [facility], [place], [place]. GFRbbon 03-24-2019 GFR/1.73 sq M predicted among non-blacks MDRD vol rate/area (S/P/Bld) mL/min/{1.73_m2} Normal [facility] Comment on above: Performed By: #### 6 9405-9, 12301-4, 44723-0e3, 86527-8 ####[facility], [address] [facility] [place], [place]. Glucose POCT (Uploaded)on Glucose mass conc 157 mg/dL High 70-99 [facility] Comment on above: Result Comment: Dejah tment ranges and critical values established by Patient Care Services. All follow-up actions were taken by Patient Care Services. Performed By: #### 2 430-8 ####[facility] Glucose mass conc 210 mg/dL High 70-99 [facility] Comment on above: Result Comment: Dejah tment ranges and critical values established by Patient Care Services. All follow-up actions were taken by Patient Care Services. Performed By: #### 2 430-8 ####[facility] Glucose mass conc 169 mg/dL High 70-99 [facility] Comment on above: Result Comment: Dejah tment ranges and critical values established by Patient Care Services. All follow-up actions were taken by Patient Care Services. Performed By: #### 2 430-8 ####[facility] Progress Noteson 03-24-2019 Protein mass conc Patient: Bekah VALENTE Age: 58 years Sex: Male : 1960 Associated Diagnoses: None Author: Shaikh DARBY, Abiodun Vasquez Supervising Physician Comments Documentation By: Attending Physician. Assessment Assessment and Plan Hospital course: 58-year-old male patient with past medical history significant for hyperlipidemia, fnr-rpgtmde-kymvtenpl diabetes mellitus, nonischemic cardiomyopathy with most recent ejection fraction of 40% presents to the hospital with complaint of sudden onset chest pain diaphoresis. Found to have acute ST segment elevated myocardial infarction. Taken for urgent cardiac catheterization. Found to have 100% occlusion of mid left circumflex, 70% occlusion of proximal LAD and 85% occlusion of distal LAD. PTCA performed. Stents placed. Overnight developed second-degree heart block, 2:1 Wenckebach's. Dose of carvedilol decreased. Hemoglobin A1c found to be 10.4. Started on Lantus insulin. Plan is to observe on telemetry overnight if no further events occurred then could most likely be discharged tomorrow morning ##Assesment and plan #Acute ST segment elevated myocardial infarct -Cardiac catheterization performed on March 22, 2019-100% occlusion of mid left circumflex, 70% occlusion of proximal LAD and 85% occlusion of distal LAD. PTCA performed. Stents placed. -Continue with aspirin, Brilinta, Lipitor, carvedilol, losartan and spironolactone -Developed second-degree heart block, 2:1 Wenckebach. Dose of carvedilol has been decreased. Continue with telemetry monitoring for additional 24 hours #Systolic congestive heart failure with ejection fraction between 40 and 45% -Now on carvedilol (lower dose) losartan and spironolactone, Lasix-home medications -Continue strict I's and O's, daily weights, fluid restriction -No evidence of acute decompensation #Diabetes mellitus uncontrolled-hemoglobin A1c of 10.4 -Was supposed to be on metformin 5 mg PO BID, has been off metformin for the last 3 months -Given the significantly elevated hemoglobin A1c and now findings of ischemic coronary disease-tight glycemic control is of utmost important -Started Lantus 20 units subcu to once a day on March 23, 2019, monitor Accu-Cheks over next 24 hours and adjust dose accordingly -Discussed with patient and his significant other at bedside that he will most likely be discharged home on this and oral metformin, advised to maintain blood sugar log by taking sugar 3 times a day, follow-up with PCP in 1 week and slowly up or down titrate dose of Lantus accordingly. -clinical unit educator consultation called. Hopefully this should be provided prior to discharge. #Obesity -Diet exercise and weight loss as an outpatient -Sleep study as an outpatient Plan for next 24 hours: Continue Lantus 20 units subcu to once a day, dose of carvedilol decreased, continue with cardiac medications, telemetry monitoring, ambulate Discharge Planning: Anticipated Date of Discharge : March 25, 2019 expected Location of discharge : Home Subjective Comments Patient seen and examined at bedside. Resting comfortably. Denies any chest pain. Telemetry monitoring showing second-degree heart block overnight, patient remained asymptomatic. Discussed at length findings of hemoglobin A1c 10.4. Discussed treatment options including insulin, oral hypoglycemics. Patient and significant both in agreement with plan of care. Denies fevers, chills, nausea, vomiting, abdominal pain, chest pain or shortness of breath. Objective Last Charted Vital Signs Temperature: 97.3 (03/24 11:14) Pulse: 66 (03/24 11:14) Respiration: 16 (03/24 11:14) BP: 133/92 (03/24 11:14) Pulse Ox: 98 (03/24 11:14) Oxygen Delivery: Room air (03/24 12:09) Pain Score: Not Charted Intake and Output (Previous 24Hrs) I and O Summary Begin date: 03/23 14:32 End date: 03/24 14:32 24 Hour Intake: 720.00 Output: 0.00 Balance: 720.00 Last BM: No BM Charted Measurements Height: 182.88 cm /72.00 in (Pt reported) (03/22/2019 09:31:00) Weight: 96.7 kg/ 213 lbs 3.0 oz (Type not Indicated) (03/24/2019 05:00:00) Body Surface Area: 2.22 m2 Body Mass Index: 28.91 General General: Alert and oriented x3. No acute distress. Appears documented age. Skin: Warm , dry , and intact. No icterus noted. Heart: No thrills or heaves. regular rate and rhythm. Lungs: Patient appears to be breathing comfortably. Clear to auscultation bilaterally. Abdomen/GI: Bowel sound present. Soft nontender and nondistended. Extremity/Musculoskeletal: No clubing, cyanosis or edema. Normal muscle tone. 2+ radial pulses. Pyschiatric: Normal mood. Neurologic: No focal weakness in the patient's upper or lower extremities. No gross sensory loss in the upper or lower extremities. Results Review Labs - Last 36 hours (Max 2 / lab test) CHEMISTRY Sodium 137 (03/24 04:42) 137 (03/23 04:) Potassium 3.6 (03/24 04:) 3.9 (03/23 04:) Chloride 105 (03/24 04:) 107 (03/23 04:) CO2 22 (03/24 04:) 23 (03/23 04:) Glucose 168 (03/24 04:) 211 (03/23 04:) Glucose POCT No result BUN 15 (03/24) 17 (03/23 04:) Creatinine 1.02 (03/24 04:) 1.07 (03/23 04:) Calcium Total 8.6 (03/24 04:) 8.7 (03/23 04:) Magnesium 2.1 (03/23 04:) HEMATOLOGY WBC 6.8 (03/24 04:) 6.7 (03/23 04:) RBC 5.75 (03/24 04:) 5.61 (03/23 04:) Hb 15.4 (03/24 04:) 15.0 (03/23 04:) Hematocrit 47.7 (03/24 04:) 45.9 (03/23 04:) Platelets 218 (03/24 04:) 208 (03/23 04:) MCV 82.9 (03/24 04:) 81.9 (03/23 04:) MCH 26.8 (03/24 04:) 26.7 (03/23 04:) RDW 14.0 (03/24 04:) 14.0 (03/23 04:) MCHC 32.3 (06) 32.6 (03/23) Neutrophil Ab 5.00 (03/24) 4.90 (03/23) Monocyte Ab 0.60 (03/24) 0.60 (03/23) Eosinophil Ab 0.10 (03/24) 0.10 (03/23) Basophil Ab 0.00 (03/24) 0.00 (03/23) Lymphocyte Ab 1.10 (03/24) 1.20 (03/23) OTHER LABS Anion Gap 10.0 mMol/L (03/24) 7.0 mMol/L (03/23) Est CrCl IBW (mL/min)-RX 87.70 mL/min (03/24) 83.60 mL/min (03/23 04:) GFR Est. Non >60 mL/min (03/24) >60 mL/min (03/23) GFR Est. Cynthia >60 mL/min (03/24) >60 mL/min (03/23 04:) Troponin I 1.03 ng/mL (03/24) Hemoglobin A1c 10.9 % tl hgb (03/23) MPV 7.4 FL (03/24) 7.3 FL (03/23) Neutrophil 74.2 % (03/24) 73.0 % (03/23) Lymphocyte 16.0 % (03/24) 17.3 % (03/23) Monocyte 8.4 % (03/24) 8.5 % (03/23) Eosinophil 1.1 % (03/24) 0.8 % (06/01 04:26) Basophil 0.3 % (03/24 04:42) 0.4 % (03/23 04:26) General Results labs and imaging reviewed Health Status Allergies Allergic Reactions (Selected) NKA No Known Medication Allergies Medication List (Selected) Inpatient Medications Ordered Brilinta: 90 mg, PO, Q12h Dextrose 50% Syringe*: 12.5 Gm, IV Push, PRN, PRN: See Comments Glucagon: 1 mg, Subcut, PRN, PRN: See Comments Insulin Lispro Sliding Scale (HumaLOG)*: Conservative Scale, Subcut, ac+bedtime Lantus LONG-Actin Unit, Subcut, Daily Lipitor: 80 mg, PO, Bedtime aspirin: 81 mg, PO, Daily carvedilol: 6.25 mg, PO, w/bkfst+din furosemide: 20 mg, PO, Daily losartan: 50 mg, PO, Daily oxygen: 1 Each, Inhalation, Daily spironolactone: 25 mg, PO, Daily Prescriptions Prescribed ticagrelor 90 mg oral tablet: 1 Tab, PO, Q12h, 60 Each, 11 Refill(s) Documented Medications Documented Aldactone 25 mg oral tablet: 1 Tab, PO, BID, Each, 0 Refill(s) Coreg 12.5 mg oral tablet: 1 Tab, PO, BID, Each, 0 Refill(s) Cozaar 50 mg oral tablet: 1 Tab, PO, Daily, Each, 0 Refill(s) Crestor 20 mg oral tablet: 1 Tab, PO, Bedtime, Each, 0 Refill(s) Lasix 20 mg oral tablet: 1 Tab, PO, Daily, Each, 0 Refill(s) aspirin 81 mg oral tablet: 1 Tab, PO, Daily, Each, 0 Refill(s) Normal [facility] Protein mass conc Patient: Bekah VALENTE MRN: [id number] Age: 58 years Sex: Male : 1960 Associated Diagnoses: None Author: Marsye Jarvis Supervising Physician Comments Documentation By: Allied Health Professional. Collaborating Physician: Jessica Thornton Chief Complaint 58-year-old male with a history of heart catheterization just over one year ago reportedly showing mild coronary disease. He presents at this time with onset of precordial chest discomfort/pressure moderate to severe associated with mild dyspnea and diaphoresis while at work. EMS called and EKG showed findings suggestive of acute myocardial infarction. The patient was transported to our facility and met in the emergency department. Patient's symptoms had progressed and ST changes were more prominent on his arrival in the transmitted EKG by EMS. He was hemodynamically stable. Discussed his medical history and recommendation for emergent heart catheterization with angioplasty and stent placement and patient was agreeable. ER was then bypassed and patient taken directly to [facility] for procedure. Subjective Denies chest pain, shortness of breath, lightheadedness or dizziness. Denies palpitations. States he had a good night Assessment STEMI-posterior -sp drug eluting stent to mid CX, prox and mid LAD -echocardiogram shows EF 40-45% with severe hypokinesis of mid to distal anteroseptum. There was abnormal Apical motion. There was also suggestion of mild hypokinesia of the basal and mid inferoseptal segments. -Troponin 1.03 -Continue DAPT with aspirin 81 mg daily/lifelong and Brilinta for at least 12 months. (he has Brilinta at bedside) -Discussed rationale for un-interrupted dual antiplatelet therapy and risk of acute stent thrombosis. -Continue statin therapy with Crestor -Continue beta celeste therapy with carvedilol but will reduce dose (see below). Continue ARB with losartan -Cardiac rehabilitation ordered. -NitroSTAT prn at dc -Follow-up will need arranged in [address] Granado (his normal psych therapist) in [place] but if cannot make an appt in a week he should see us first and he agrees 2. DM 3.ischemic cardiomyopathy -by history. EF 40-45% with wall motion abnormalities -pt had been on crestor, losartan, lasix, spironolactone and carvedilol at home -will fold in his home meds by stopping metoprolol and adding carvedilol, stopping lisinopril and adding losartan and spironolactone 25 mg daily (he had been on BID at home) . Will also add furosemide 20 mg daily 4. LBBB -on ECG 5. AV Block -Pt had 2nd degree AV block yesterday for approx 30 seconds that at times was 2:1 wenchebach. Concern with his LBBB. -will reduce carvedilol dose to 6.25 mg BID and monitor another 24 hours. May need to consider an event monitor as OP as well Plan reduce carvedilol to 6.25 mg BID and monitor rhythm another 24 hours. Will decide on possible event monitor in am cardiac rehab Diagnostics: Cardiac cath 03/22/2019 Procedure Summary Acute Posterior CA Successful PCI of Mid LCx, Prox/Mid LAD with IVUS optimization Small intimal tear in mid/distal LM after initial pass with coronary guidewire was at no time flow limiting. Improved appearance throughout procedure and IVUS did not reveal an intimal flap, completion angiography shows resolution of this angiographic appearance as well thus PCI of distal LM deferred. Vessel size is large at 6.1 X 5.5 and thus available stents may not fully oppose to entire LM lumen. Recommendations DAPT for one year with Brilinta HDST BB, luisito as tolerated Echo Cardiac Rehab Echocardiogram 03/22/2019 Technically difficult study with suboptimal definition of detail. Definity echo-contrast was utilized for left ventricular opacification. On of the segments of the left ventricle are not ideally visualized. Mild left ventricular hypertrophy. LVEF of 40-45%. Severe hypokinesia of the mid to distal anteroseptum. Apical motion is abnormal. There is also suggestion of mild hypokinesia of the basal and mid inferoseptal segments. No gross valvular disease present. Grossly normal right ventricular size and function. Grade 1 diastolic dysfunction. Objective Last Charted Vital Signs Temperature: 97.3 (03/24 07:27) Pulse: 68 (03/24 07:27) Respiration: 16 (03/24 07:27) BP: 134/78 (03/24 07:27) Pulse Ox: 96 (03/24 07:27) Oxygen Delivery: Room air (03/24 04:00) Pain Score: Not Charted Intake and Output (Previous 24Hrs) I and O Summary Begin date: 03/23 08:12 End date: 03/24 08:12 24 Hour Intake: 1080.00 Output: 0.00 Balance: 1080.00 Last BM: No BM Charted Measurements Height: 182.88 cm /72.00 in (Pt reported) (03/22/2019 09:31:00) Weight: 96.7 kg/ 213 lbs 3.0 oz (Type not Indicated) (03/24/2019 05:00:00) Body Surface Area: 2.22 m2 Body Mass Index: 28.91 General Exam: Alert and oriented x3, vital signs stable, no acute distress. Respiratory Lungs: clear to auscultation, breath sounds equal, no wheezing, no rhonchi, no rales. Cardiovascular Exam: Regular rate and rhythm. Heart sounds: S1, S2. Test results via. Arterial pulses:: good pulses equal in all extremities. Electrocardiographic rhythm: normal sinus rhythm. had approx 30 seconds of Wenchebach rhythm yesterday afternoon with at least twice 2:1 wenchebach. No Gallop. No Clicks. Gastrointestinal Exam: bowel sounds present, no distention. Integumentary General: intact, warm, dry. right wrist cath site without ecchymosis or hematoma. Neurologic Exam: Alert and oriented x 3. Psychiatric Exam: alert, appropriate, calm, cooperative. Results Review Labs - Last 36 hours (Max 2 / lab test) CHEMISTRY Sodium 137 (03/24 04:42) 137 (03/23 04:26) Potassium 3.6 (03/24 04:42) 3.9 (03/23 04:26) Chloride 105 (03/24 04:42) 107 (03/23 04:26) CO2 22 (03/24 04:42) 23 (03/23 04:26) Glucose 168 (03/24 04:42) 211 (03/23 04:26) Glucose POCT No result BUN 15 (03/24 04:42) 17 (03/23 04:26) Creatinine 1.02 (03/24 04:42) 1.07 (03/23 04:26) Calcium Total 8.6 (03/24 04:42) 8.7 (03/23 04:26) Magnesium 2.1 (03/23 04:26) HEMATOLOGY WBC 6.8 (03/24 04:) 6.7 (03/23 04:) RBC 5.75 (03/24 04:) 5.61 (03/23 04:) Hb 15.4 (03/24 04:) 15.0 (03/23 04:) Hematocrit 47.7 (03/24) 45.9 (03/23 04:) Platelets 218 (03/24 04:) 208 (03/23 04:) MCV 82.9 (03/24 04:) 81.9 (03/23 04:) MCH 26.8 (03/24) 26.7 (03/23 04:) RDW 14.0 (03/24) 14.0 (03/23 04:) MCHC 32.3 (03/24 04:) 32.6 (03/23 04:) Neutrophil Ab 5.00 (03/24 04:) 4.90 (03/23 04:) Monocyte Ab 0.60 (03/24 04:) 0.60 (03/23 04:) Eosinophil Ab 0.10 (03/24) 0.10 (03/23 04:) Basophil Ab 0.00 (03/24 04:) 0.00 (03/23 04:) Lymphocyte Ab 1.10 (03/24) 1.20 (03/23 04:) OTHER LABS Anion Gap 10.0 mMol/L (03/24 04:) 7.0 mMol/L (03/23 04:) Est CrCl IBW (mL/min)-RX 87.70 mL/min (03/24 04:) 83.60 mL/min (03/23 04:) GFR Est. Non >60 mL/min (03/24 04:42) >60 mL/min (03/23 04:) GFR Est. Cynthia >60 mL/min (03/24) >60 mL/min (03/23 04:) Troponin I 1.03 ng/mL (03/24 04:42) Hemoglobin A1c 10.9 % tl hgb (03/23 04:) MPV 7.4 FL (03/24 04:) 7.3 FL (03/23 04:) Neutrophil 74.2 % (03/24 04:) 73.0 % (03/23 04:) Lymphocyte 16.0 % (03/24 04:) 17.3 % (03/23 04:) Monocyte 8.4 % (03/24 04:) 8.5 % (03/23 04:) Eosinophil 1.1 % (03/24 04:42) 0.8 % (03/23 04:) Basophil 0.3 % (03/24 04:) 0.4 % (03/23 04:) Health Status Allergies Allergic Reactions (Selected) NKA No Known Medication Allergies Normal [facility] Troponin Ion 03-24-2019 Troponin I.cardiac mass conc 1.03 ng/mL Critically abnormal <0.06 [facility] Comment on above: Result Comment: Crit ical value(s) on tests TROPI called to and read-back by [phone] , at location 1EBS by [phone] time called 03/24/19 06:21 Performed By: #### 6 9405-9, 00092-6, 82083-7o8, 98822-7 ####[facility], [address] [place], [place] Basic Metabolic Panelon Anion gap molar conc 7.0 mmol/L Normal 6.0-18.0 [facility] Comment on above: Performed By: #### 2 4321-2, 78223-2, 20634-6l3, 61944-7 ####[facility], [address] [place], [place]. Calcium mass conc 8.7 mg/dL Low 8.9-10.3 [facility] Comment on above: Performed By: #### 2 4321-2, 75875-8, 85547-1s0, ####[facility], [address] [facility] [place] Chloride molar conc 107 mmol/L Normal 98-107 [facility] Comment on above: Performed By: #### 2 4321-2, 94794-6, 97148-7f7, ####[facility], [address] [facility] [place] CO2 molar conc 23 mmol/L Normal 22-32 [facility] Comment on above: Performed By: #### 2 4321-2, 58088-6, 59099-8w0, ####[facility], [address] [facility] [place] Creatinine mass conc 1.07 mg/dL Normal 0.66-1.30 [facility] Comment on above: Performed By: #### 2 4321-2, 12017-7, 58320-2m5, ####[facility], [address] [facility] [place] Glucose mass conc 211 mg/dL High 70-99 [facility] Comment on above: Result Comment: U pdated ADA Reference Range A normal fasting glucose concentration is less than 100 mg/dL. An impaired fasting glucose concentration is 100-125 mg/dL. A provisional diagnosis of diabetes mellitus can be made when a fasting glucose concentration is greater than 125 mg/dL. Performed By: #### 2 4321-2, 68506-5, 19949-8q2, ####[facility], [address] [facility] [place] Potassium molar conc 3.9 mmol/L Normal 3.6-5.1 [facility] Comment on above: Performed By: #### 2 4321-2, 82502-6, 23160-5q7, 89407-1 ####[facility], [address] [facility], [place], [place]. Sodium molar conc 137 mmol/L Normal 136-145 [facility] Comment on above: Performed By: #### 2 4321-2, 90323-6, 47290-1a6, 21772-8 ####[facility], [address] [facility] [place] Urea nitrogen mass conc (BldV) 17 mg/dL Normal 8-20 [facility] Comment on above: Performed By: #### 2 4321-2, 48398-5, 44662-4w2, 12240-4 ####[facility], [address] [place], [place]. CBC with Differentialon 06-0 Basophils #/vol (Bld) 0.4 % Normal 0.0-2.0 [facility] Comment on above: Performed By: #### 5 7021-8 #### [facility], [address] [place], [place]. Basophils #/vol (Bld) 0.00 thou/mcL Normal 0.00-0.20 [facility] Comment on above: Performed By: #### 5 7021-8 #### [facility], [address] [facility] [place] Eosinophils #/vol (Bld) 0.10 thou/mcL Normal 0.00-0.70 [facility] Comment on above: Performed By: #### 5 7021-8 #### [facility], [address] [facility] Eosinophils/100 WBC (Bld) 0.8 % Normal 0.0-7.0 [facility] Comment on above: Performed By: #### 5 7021-8 #### [facility], [address] [facility] Erythrocyte distribution width Entitic volume (RBC) 14.0 % Normal 11.0-14.8 [facility] Comment on above: Performed By: #### 5 7021-8 #### [facility], [address] [place] [address]. Hematocrit Volume Fraction (Bld) 45.9 % Normal 39.0-49.0 [facility] Comment on above: Performed By: #### 5 7021-8 #### [facility], [address] [place] [address]. Hemoglobin mass conc (Bld) 15.0 g/dL Normal 13.5-17.5 [facility] Comment on above: Performed By: #### 5 7021-8 #### [facility], [address] [place] [address]. Lymphocytes #/vol (Bld) 1.20 thou/mcL Normal 1.00-4.80 [facility] Comment on above: Performed By: #### 5 7021-8 #### [facility], [address] [place] [address]. Lymphocytes/100 WBC (Bld) 17.3 % Low 22.0-44.0 [facility] Comment on above: Performed By: #### 5 7021-8 #### [facility], [address] [place] [address]. MCH Entitic mass (RBC) 26.7 Picograms Low 27.0-34.0 [facility] Comment on above: Performed By: #### 5 7021-8 #### [facility], [address] [place] [address]. MCHC mass conc (RBC) 32.6 g/dL Normal 32.0-36.0 [facility] Comment on above: Performed By: #### 5 7021-8 #### [facility], [facility] [place] MCV Entitic volume (RBC) 81.9 fL Normal 80.0-97.0 [facility] Comment on above: Performed By: #### 5 7021-8 #### [facility], [address] [place], [place]. Monocytes #/vol (Bld) 0.60 thou/mcL Normal 0.00-0.90 [facility] Comment on above: Performed By: #### 7021-8 #### [facility], [address] [address] [address] [place], [place]. Monocytes/100 WBC (Bld) 8.5 % Normal 0.0-12.0 [facility] Comment on above: Performed By: #### 7021-8 #### [facility], [address] [facility] [address] [place], [place]. Neutrophils #/vol (Bld) 4.90 thou/mcL Normal 1.80-7.70 [facility] Comment on above: Performed By: #### 7021-8 #### [facility], [address] [place], [place]. Neutrophils/100 WBC (Bld) 73.0 % High 40.0-70.0 [facility] Comment on above: Performed By: #### 7021-8 #### [facility], [address] [place], [place]. Platelet mean volume Entitic volume (Bld) 7.3 fL Normal 6.2-12.1 [facility] Comment on above: Performed By: #### 5 7021-8 #### [facility], [address] [place], [place]. Platelets #/vol (Bld) 208 thou/mcL Normal 142-424 [facility] Comment on above: Performed By: #### 5 7021-8 #### [facility], [address] [place], [place]. RBC #/vol (Bld) 5.61 million/mcL Normal 4.30-5.70 [facility] Comment on above: Performed By: #### 5 7021-8 #### [facility], [address] [place], [place]. WBC #/vol (Bld) 6.7 thou/mcL Normal 4.6-10.2 [facility] Comment on above: Performed By: #### 5 7021-8 #### [facility], [address] [facility] GFRaaon 03-23-2019 GFR/1.73 sq M predicted among blacks MDRD vol rate/area (S/P/Bld) mL/min/{1.73_m2} Normal [facility] Comment on above: Result Comment: The MDRD equation has not been validated for those over 70 years, women, patients with serious co-morbid conditions, or with extremes of body size, muscle mass of nutritional status. Performed By: #### 2 4321-2, 55676-1, 38666-7y0, 97868-2 #### [facility], [address] [place], [place] GFRbbon 03-23-2019 GFR/1.73 sq M predicted among non-blacks MDRD vol rate/area (S/P/Bld) mL/min/{1.73_m2} Normal [facility] Comment on above: Performed By: #### 2 4321-2, 00898-6, 94521-5p2, 53438-7 #### [facility], [address] [place], [place]. Glucose POCT (Uploaded)on Glucose mass conc 194 mg/dL High 70-99 [facility] Comment on above: Result Comment: Dejah tment ranges and critical values established by Patient Care Services. All follow-up actions were taken by Patient Care Services. Performed By: #### 2 430-8 ####[facility] Glucose mass conc 231 mg/dL High 70-99 [facility] Comment on above: Result Comment: Dejah tment ranges and critical values established by Patient Care Services. All follow-up actions were taken by Patient Care Services. Performed By: #### 2 430-8 ####[facility] Glucose mass conc 195 mg/dL High 70-99 [facility] Comment on above: Result Comment: Dejah tment ranges and critical values established by Patient Care Services. All follow-up actions were taken by Patient Care Services. Performed By: #### 2 430-8 ####[facility] Glucose mass conc 204 mg/dL High 70-99 [facility] Comment on above: Result Comment: Dejah tment ranges and critical values established by Patient Care Services. All follow-up actions were taken by Patient Care Services. Performed By: #### 2 430-8 ####[facility] Glycohemoglobin (HGB A1C) Dalton gutierrez 03-23-2019 Hemoglobin A1c/Hemoglobin.tota l mass fraction (Bld) 10.9 % tl hgb High <5.6 [facility] Comment on above: Result Comment: U pdated ADA Reference Range HbA1c values of 5.7-6.4 percent indicate an increased risk for developing diabetes mellitus. HbA1c values greater than or equal to 6.5 percent are diagnostic of diabetes mellitus. For diagnosis of diabetes in individuals without unequivocal hyperglycemia, results should be confirmed by repeat testing. Performed By: #### 4 549-2 ####[facility], [address], [place]. Magnesium Levelon 03-23-2019 Magnesium mass conc 2.1 mg/dL Normal 1.8-2.5 [facility] Comment on above: Performed By: #### 2 4321-2, 63760-6, 28796-1o9, 69722-2 ####[facility], [address] [place], [place]. Progress Noteson 03-23-2019 Protein mass conc Patient: Bekah VALENTE MRN: ([id number] Age: 58 years Sex: Male : 1960 Associated Diagnoses: None Author: Shaikh DARBY, Abiodun Vasquez Supervising Physician Comments Documentation By: Attending Physician. Assessment Assessment and Plan Hospital course: 58-year-old male patient with past medical history significant for hyperlipidemia, wql-roqyajm-gzcqwifzg diabetes mellitus, nonischemic cardiomyopathy with most recent ejection fraction of 40% presents to the hospital with complaint of sudden onset chest pain diaphoresis. Found to have acute ST segment elevated myocardial infarction. Taken for urgent cardiac catheterization. Found to have 100% occlusion of mid left circumflex, 70% occlusion of proximal LAD and 85% occlusion of distal LAD. PTCA performed. Stents placed. Admitted to telemetry unit post procedure. ##Assesment and plan #Acute ST segment elevated myocardial infarct -Cardiac catheterization performed on March 22, 2019-100% occlusion of mid left circumflex, 70% occlusion of proximal LAD and 85% occlusion of distal LAD. PTCA performed. Stents placed. -Continue with aspirin, Brilinta, Lipitor, carvedilol, losartan and spironolactone -Continue with telemetry monitoring, you VPCs noted overnight #Systolic congestive heart failure with ejection fraction between 40 and 45% -Now on carvedilol losartan and spironolactone, Lasix-home medications -Continue strict I's and O's, daily weights, fluid restriction #Diabetes mellitus uncontrolled-hemoglobin A1c of 10.4 -Was supposed to be on metformin, has been off metformin for the last 3 months -Given the significantly elevated hemoglobin A1c and now findings of ischemic coronary disease-tight glycemic control is of utmost important -will initiate Lantus 20 units subcu to once a day, plan to discharge home on Lantus and oral metformin. clinical unit educator consultation will be called. #Obesity -Diet exercise and weight loss as an outpatient -Sleep study as an outpatient Plan for next 24 hours: Initiate Lantus 20 units subcu to once a day, continue with cardiac medications, telemetry monitoring, ambulate Discharge Planning: Anticipated Date of Discharge : March 24, 2019 expected Location of discharge : Home Subjective Comments Patient seen and examined at bedside. Resting comfortably. Denies any chest pain. No acute events overnight. Telemetry monitoring showing intermittent VPCs Denies fevers, chills, nausea, vomiting, abdominal pain, chest pain or shortness of breath. Objective Last Charted Vital Signs Temperature: 97.7 (03/23 11:35) Pulse: 73 (03/23 11:35) Respiration: 16 (03/23 11:35) BP: 152/96 (03/23 11:35) Pulse Ox: 97 (03/23 11:35) Oxygen Delivery: Room air (03/23 08:00) Pain Score: Not Charted Intake and Output (Previous 24Hrs) I and O Summary Begin date: 03/22 12:12 End date: 03/23 12:12 24 Hour Intake: 1120.00 Output: 500.00 Balance: 620.00 Last BM: No BM Charted Measurements Height: 182.88 cm /72.00 in (Pt reported) (03/22/2019 09:31:00) Weight: 97.9 kg/ 215 lbs 13.3 oz (Type not Indicated) (03/23/2019 04:25:00) Body Surface Area: 2.23 m2 Body Mass Index: 29.27 General General: Alert and oriented x3. No acute distress. Appears documented age. Skin: Warm , dry , and intact. No icterus noted. Heart: No thrills or heaves. regular rate and rhythm. Lungs: Patient appears to be breathing comfortably. Clear to auscultation bilaterally. Abdomen/GI: Bowel sound present. Soft nontender and nondistended. Extremity/Musculoskeletal: No clubing, cyanosis or edema. Normal muscle tone. 2+ radial pulses. Pyschiatric: Normal mood. Neurologic: No focal weakness in the patient's upper or lower extremities. No gross sensory loss in the upper or lower extremities. Results Review Labs - Last 36 hours (Max 2 / lab test) CHEMISTRY Sodium 137 (03/23 04:26) Potassium 3.9 (03/23 04:26) Chloride 107 (03/23 04:26) CO2 23 (03/23 04:26) Glucose 211 (03/23 04:26) Glucose POCT No result BUN 17 (03/23 04:26) Creatinine 1.07 (03/23 04:26) Calcium Total 8.7 (03/23 04:26) Magnesium 2.1 (06/01 04:26) HEMATOLOGY WBC 6.7 (03/23 04:) RBC 5.61 (03/23) Hb 15.0 (03/23) Hematocrit 45.9 (03/23) Platelets 208 (03/23) MCV 81.9 (03/23) MCH 26.7 (03/23) RDW 14.0 (03/23) MCHC 32.6 (03/23) Neutrophil Ab 4.90 (03/23) Monocyte Ab 0.60 (03/23) Eosinophil Ab 0.10 (03/23) Basophil Ab 0.00 (03/23) Lymphocyte Ab 1.20 (03/23) OTHER LABS Anion Gap 7.0 mMol/L (03/23) Est CrCl IBW (mL/min)-RX 83.60 mL/min (03/23) GFR Est. Non >60 mL/min (03/23) GFR Est. Cynthia >60 mL/min (03/23) Hemoglobin A1c 10.9 % tl hgb (03/23) MPV 7.3 FL (03/23) Neutrophil 73.0 % (03/23) Lymphocyte 17.3 % (03/23) Monocyte 8.5 % (03/23) Eosinophil 0.8 % (03/23) Basophil 0.4 % (06/01 04:26) General Results labs and imaging reviewed Health Status Allergies Allergic Reactions (Selected) NKA No Known Medication Allergies Medication List (Selected) Inpatient Medications Ordered Brilinta: 90 mg, PO, Q12h Dextrose 50% Syringe*: 12.5 Gm, IV Push, PRN, PRN: See Comments Glucagon: 1 mg, Subcut, PRN, PRN: See Comments Insulin Lispro Sliding Scale (HumaLOG)*: Conservative Scale, Subcut, ac+bedtime Lantus LONG-Actin Unit, Subcut, Daily Lipitor: 80 mg, PO, Bedtime aspirin: 81 mg, PO, Daily carvedilol: 12.5 mg, PO, w/bkfst+din furosemide: 20 mg, PO, Daily losartan: 50 mg, PO, Daily oxygen: 1 Each, Inhalation, Daily spironolactone: 25 mg, PO, Daily Prescriptions Prescribed ticagrelor 90 mg oral tablet: 1 Tab, PO, Q12h, 60 Each, 11 Refill(s) Documented Medications Documented Aldactone 25 mg oral tablet: 1 Tab, PO, BID, Each, 0 Refill(s) Coreg 12.5 mg oral tablet: 1 Tab, PO, BID, Each, 0 Refill(s) Cozaar 50 mg oral tablet: 1 Tab, PO, Daily, Each, 0 Refill(s) Crestor 20 mg oral tablet: 1 Tab, PO, Bedtime, Each, 0 Refill(s) Lasix 20 mg oral tablet: 1 Tab, PO, Daily, Each, 0 Refill(s) aspirin 81 mg oral tablet: 1 Tab, PO, Daily, Each, 0 Refill(s) Normal [facility] Protein mass conc Patient: Bekah VALENTE MRN: ([id number] Age: 58 years Sex: Male : 1960 Associated Diagnoses: None Author: Maryse Jarvis Supervising Physician Comments Documentation By: Allied Health Professional. Collaborating Physician: Jessica Thornton Chief Complaint 58-year-old male with a history of heart catheterization just over one year ago reportedly showing mild coronary disease. He presents at this time with onset of precordial chest discomfort/pressure moderate to severe associated with mild dyspnea and diaphoresis while at work. EMS called and EKG showed findings suggestive of acute myocardial infarction. The patient was transported to our facility and met in the emergency department. Patient's symptoms had progressed and ST changes were more prominent on his arrival in the transmitted EKG by EMS. He was hemodynamically stable. Discussed his medical history and recommendation for emergent heart catheterization with angioplasty and stent placement and patient was agreeable. ER was then bypassed and patient taken directly to [facility] for procedure. Subjective Denies chest pain, shortness of breath, lightheadedness or dizziness. Denies palpitations Assessment STEMI-posterior -sp drug eluting stent to mid CX, prox and mid LAD -echocardiogram shows EF 40-45% with severe hypokinesis of mid to distal anteroseptum. There was abnormal Apical motion. There was also suggestion of mild hypokinesia of the basal and mid inferoseptal segments. -no troponin so will draw this am -Continue DAPT with aspirin 81 mg daily/lifelong and Brilinta for at least 12 months. -Discussed rationale for un-interrupted dual antiplatelet therapy and risk of acute stent thrombosis. -Continue statin therapy with Crestor -Continue beta celeste therapy with carvedilol Continue ARB with losartan -Cardiac rehabilitation ordered. -Heart Failure Services consulted. -NitroSTAT prn at dc -Follow-up arranged in 1 week with Josselin Mejia. He normally sees Dr. Granado in [place] but if cannot make an appt in a week he should see us first and he agrees 2. DM 3.ischemic cardiomyopathy -pt had been on crestor, losartan, lasix, spironolactone and carvedilol at home -will fold in his home meds by stopping metoprolol and adding carvedilol, stopping lisinopril and adding losartan and spironolactone 25 mg daily (he had been on BID at home) . Will also add furosemide 20 mg daily 4. LBBB -on ECG Plan troponin on am blood DC metoprolol and lisinopril add carvedilol 12.5 mg BID, losartan 50 mg daily, furosemide 20 mg daily and spironolactone 25 mg daily BMP in am will order Brilinta first dose at [facility] [place] [facility] then he can fill at his local pharmacy after that Have pt ambulate. Probable discharge in am if rhythm remains stable Diagnostics: Cardiac cath 03/22/2019 Procedure Summary Acute Posterior CA Successful PCI of Mid LCx, Prox/Mid LAD with IVUS optimization Small intimal tear in mid/distal LM after initial pass with coronary guidewire was at no time flow limiting. Improved appearance throughout procedure and IVUS did not reveal an intimal flap, completion angiography shows resolution of this angiographic appearance as well thus PCI of distal LM deferred. Vessel size is large at 6.1 X 5.5 and thus available stents may not fully oppose to entire LM lumen. Recommendations DAPT for one year with Brilinta HDST BB, luisito as tolerated Echo Cardiac Rehab Echocardiogram 03/22/2019 Technically difficult study with suboptimal definition of detail. Definity echo-contrast was utilized for left ventricular opacification. On of the segments of the left ventricle are not ideally visualized. Mild left ventricular hypertrophy. LVEF of 40-45%. Severe hypokinesia of the mid to distal anteroseptum. Apical motion is abnormal. There is also suggestion of mild hypokinesia of the basal and mid inferoseptal segments. No gross valvular disease present. Grossly normal right ventricular size and function. Grade 1 diastolic dysfunction. Objective Last Charted Vital Signs Temperature: 97.6 (03/23 07:51) Pulse: 71 (03/23 07:51) Respiration: 16 (03/23 07:51) BP: 153/88 (03/23 07:51) Pulse Ox: 98 (03/23 07:51) Oxygen Delivery: Room air (03/23 04:21) Pain Score: Not Charted Intake and Output (Previous 24Hrs) I and O Summary Begin date: 03/22 08:41 End date: 03/23 08:41 24 Hour Intake: 1120.00 Output: 1040.00 Balance: 80.00 Last BM: No BM Charted Measurements Height: 182.88 cm /72.00 in (Pt reported) (03/22/2019 09:31:00) Weight: 97.9 kg/ 215 lbs 13.3 oz (Type not Indicated) (03/23/2019 04:25:00) Body Surface Area: 2.23 m2 Body Mass Index: 29.27 General Exam: Alert and oriented x3, vital signs stable, no acute distress. Respiratory Lungs: clear to auscultation, breath sounds equal, no wheezing, no rhonchi, no rales. Cardiovascular Exam: Regular rate and rhythm. Heart sounds: S1, S2. Test results via. Arterial pulses:: good pulses equal in all extremities. Electrocardiographic rhythm: normal sinus rhythm. had one dropped QRS yesterday afternoon and 5 beats of AIVR last pm. No Gallop. No Clicks. Gastrointestinal Exam: bowel sounds present, no distention. Integumentary General: intact, warm, dry. right wrist cath site without ecchymosis or hematoma. Neurologic Exam: Alert and oriented x 3. Psychiatric Exam: alert, appropriate, calm, cooperative. Results Review Labs - Last 36 hours (Max 2 / lab test) CHEMISTRY Sodium 137 (03/23 04:26) Potassium 3.9 (03/23 04:) Chloride 107 (03/23 04:) CO2 23 (03/23 04:) Glucose 211 (03/23 04:) Glucose POCT No result BUN 17 (03/23 04:26) Creatinine 1.07 (03/23 04:26) Calcium Total 8.7 (03/23 04:26) Magnesium 2.1 (03/23 04:26) HEMATOLOGY WBC 6.7 (03/23 04:26) RBC 5.61 (03/23 04:26) Hb 15.0 (03/23 04:26) Hematocrit 45.9 (03/23 04:26) Platelets 208 (03/23 04:) MCV 81.9 (03/23 04:26) MCH 26.7 (03/23 04:26) RDW 14.0 (03/23 04:26) MCHC 32.6 (03/23 04:) Neutrophil Ab 4.90 (03/23 04:) Monocyte Ab 0.60 (03/23 04:) Eosinophil Ab 0.10 (03/23 04:) Basophil Ab 0.00 (03/23 04:) Lymphocyte Ab 1.20 (03/23 04:) OTHER LABS Anion Gap 7.0 mMol/L (03/23 04:) Est CrCl IBW (mL/min)-RX 83.60 mL/min (03/23) GFR Est. Non >60 mL/min (03/23) GFR Est. Cynthia >60 mL/min (03/23 04:) MPV 7.3 FL (03/23 04:) Neutrophil 73.0 % (03/23 04:) Lymphocyte 17.3 % (03/23 04:) Monocyte 8.5 % (03/23 04:) Eosinophil 0.8 % (03/23 04:) Basophil 0.4 % (03/23 04:) Health Status Allergies Allergic Reactions (Selected) NKA No Known Medication Allergies Normal [facility] [place] [id number] Emergency Department Discharge Instructions ANDREWS VALENTE , Please provide this information to your Primary Care/Specialist Name : SIDRAAMYANDREWS Current Date : 03/22/2019 08:02:07 : 1960 12:00 PM Primary Care Physician: Physician, PCP Unknown Diagnosis : Follow-Up Instructions: ANDREWS VALENTE has been given these follow-up instructions: Laboratory Orders: None Ordered Radiology Orders: None Ordered Diagnostic Tests: Name: Status: Cardiac Catheterization Ordered Procedure(s) and Patient Education(s) : EMERGENCY SERVICES MEDICATION LIST Lista de Medicaciones de los Servicios de Emergencia Name SIDRAAMYANDREWS MRN ([facility])-[id number] PLEASE READ THE FOLLOWING REGARDING YOUR MEDICATIONS Based on the information available during your visit we have given you the medication instructions below. Continue taking medications you took prior to your visit unless you have been told to change. Please share this information with your own doctor. Carry a list of your medications with you in case of an emergency. Update it when medications are stopped, doses are changed, or new medications (including wynf-oki-nqygrup products) are added. If you have any questions, check with your doctor. Por la informaci??n disponible silvestre patel visita, las instrucciones de medicaci??n aparecen debajo. Favor de continuar tomando las medicaciones Ud. bren?? antes de patel visita por lo menos que hay cambios. Favor de compartir esta informaci??n con patel medico. Lleva ofelia lista de medicaciones consigo por marcelle de emergenc??a. Actualiza la lista cuando Ud. renee de mindy las medicaciones, si cambian las dosis, o si hay nuevas medicaciones a??adidas (incluyendo medicaciones vendidas sin prescripci??n). Favor de preguntar a patel medico por cualquier flora. THESE ARE THE MEDICATIONS YOU SHOULD BE TAKING No Medications Documented MEDICATIONS GIVEN DURING MEDICAL VISIT None NON-MEDICATION PRESCRIPTION SCHEDULING PHONE NUMBER: MEDICATION CHANGE DETAILS (Not your Final Home Medication List) During the course of your visit, your home medication list was updated with the most current information. The details of those changes are shown below: NEW MEDICATIONS None UPDATED MEDICATIONS None UNCHANGED MEDICATIONS None STOP TAKING THESE MEDICATIONS None DO NOT TAKE UNTIL YOU TALK TO YOUR DOCTOR None [place] [id number] Emergency Department Discharge Instructions Name: ANDREWS VALENTE Current Date: 03/22/2019 08:02:07 : 1960 12:00 PM Primary Physician: Physician, PCP Unknown We would like to thank you for choosing [facility] for your emergency medical needs. We examined and treated you today on an emergency basis only. This was not a substitute for, or an effort to provide, complete medical care. In most cases, you must let your doctor (or the doctor we referred you to) check you again. Tell your doctor about any new or lasting problems. We cannot recognize and treat all injuries or illnesses in one emergency department visit. After you leave, you should follow the directions attached. Instructions for obtaining X-rays: When following up with your doctor, you may need to take copies of your x-rays that were done in the Emergency Department. If you didn't receive these upon your discharge from the emergency department, please call . When the final report becomes available and it is reviewed, the emergency department will attempt to contact you if there are any changes in your instructions. It is important that you leave accurate information with us on how to contact you. IF you cannot be contacted, YOU must contact the follow-up doctor that you were assigned to make sure that the final official x-ray report does not require a change in your treatment. Instructions for obtaining medical records: If you need a copy of your medical records for follow-up, please contact the Health Information Management Department at . Their office hours are 8 AM- 4:30 PM, Monday through Monday. Please note: Results are not immediately available. Please allow a minimum of 36 hours for documentation and results. If you were prescribed an antibiotic: Antibiotics are life-saving drugs and they need to be used properly. Your team might change your antibiotic because test results show that a different antibiotic would be better to treat your infection. Like all medications, antibiotics have side effects. Some can be serious. This includes the risk of getting an antibiotic-resistant infection later, which may be difficult to treat. Remember to take your antibiotics as prescribed. If you have any questions please talk to your healthcare team. Seatbelts: There is no doubt that seatbelts save lives. Every day, people without seatbelts have more serious injuries. Have everyone buckle up, using age appropriate seatbelts or car seats, to reduce their risk of injury. Smoking: If you do smoke, we encourage you to stop. Smoking affects all aspects of your health and the health of those around you. Call the [place] [employer] at 1-012-DGJA-[place] or the [place] [employer] at 5-610-SRY-2517 for more information. High blood pressure: Your screening blood pressure today was / . Hypertension (high blood pressure) is blood pressure over 120/80. People with hypertension should contact their primary care provider within 30 days to follow up. Check your patient portal for additional blood pressure information. Immunizations: Immunization is a way to protect against deadly infections. Discuss this with your child's strategic partner development manager, or Public Health Department. Your family practice doctor can determine if you need pneumonia or flu vaccine. [facility] Department can be reached at . Substance Abuse Program: Concerns with addiction to alcohol, benzodiazepines (Ativan or Xanax) and Opiates (Heroin, Percocet, OxyContin, Methadone or Fentanyl)? [facility] offers an inpatient Substance Abuse Program to help treat the symptoms associated with medical detoxification of addictive substances. The new program offers care for non- adults (18 and older) looking to break the chain to addictive chemicals. The Substance Abuse Program is a voluntary inpatient admission and it starts with a pre-screening phone call to a older adult social work specialist. During the call, goals and objectives for recovery and how the patient will transition to outpatient care will be established. Please call [phone] to get help today. Domestic Violence: If you are a victim of domestic violence (physical, verbal, or emotional), you are not alone. Discuss this with your physician or a friend and call Choices Hotline ( for assistance and support. You are the most important factor in your recovery. Follow the provided instructions carefully. Take your medications as prescribed. Most importantly, see a doctor again as discussed. If you have problems that we have not discussed, call or visit your doctor right away. If you do not have a primary care physician, we have provided one for you to follow up with. When you call for an appointment, please inform them that you were seen in the emergency department and the date of your visit. If you are unable to reach your doctor and are still experiencing problems, return to the emergency department. For assistance finding a primary care physician, call the Physician Referral Line at . Suicide Hotline: Your mental and emotional well-being is important. If you are in a mental health crisis or are having thoughts of suicide, please call the nationwide suicide hotline, anytime day or night, at 9-219-415-SPMJ. Pharmacy Information: Below is a list of 24 hour pharmacies that we are aware of. We suggest that you call the specific pharmacy for their hours before traveling to a location. Hours may vary on holidays. [facility] [address] [place], [place] [phone] [place] [id number] [phone] [place] [id number] [phone] [address] [phone] [place], [place] [phone] [address] [place] [id number] [phone], [place] [phone] Take all medications as directed. If you need prescription assistance, contact the following agencies: ?? Partnership for Prescription Assistance at or www.[employer].org ?? [facility] Rx at or www.Positronrexozet.org ?? www.[employer] is a site with many valuable coupons Patient Education Materials ANDREWS VALENTE has been given the following patient education materials: <><><><><><><><><><><><><>< ><><><><><><><><><><><> Patient Visit Summary Signature ANDREWS VALENTE has been given the following list of patient education materials, prescriptions and follow-up instructions: I, ANDREWS VALENTE, have received the above patient education materials/instructions and have verbalized understanding: Date Time Patient Signature Date Time Provider Signature Normal [facility] Glucose POCT (Uploaded)on Glucose mass conc 215 mg/dL High 70-99 [facility] Comment on above: Result Comment: Dejah tment ranges and critical values established by Patient Care Services. All follow-up actions were taken by Patient Care Services. Performed By: #### 2 430-8 #### [facility] Glucose mass conc 230 mg/dL High 70-99 [facility] Comment on above: Result Comment: Dejah tment ranges and critical values established by Patient Care Services. All follow-up actions were taken by Patient Care Services. Performed By: #### 2 430-8 #### [facility] Pre-Arrival Formon 9 Pre-Arrival Form Pre-Arrival Summary Name: Ghada, Current Date: 03/22/2019 07:56:34 EDT Gender: Male Date of : Age: 58 Pre-Arrival Type: EMS ETA: 03/22/2019 08:05:00 EDT Primary Care Physician: Presenting Problem: Pre-Arrival User: Bren Winkler RN Referring Source: Location: PreArrival Emergency Department Pre Arrival Form EMS: 502 PHYSICIAN REFERRAL: 58 yo M x 20 mins Stemi alert HR SB 92/52 Reason for Visit: STEMI Vital Signs: Medications Given: Comments: Normal [facility] Test Result Ejection Fractio non 03-22-2019 Test Result Ejection Fraction Normal [facility] Test Result Ejection Fraction Normal [facility] BASIC METABOLIC PANELon 01-21 Anion gap 3 molar conc 13.0 mmol/L Normal 06-13 [facility] Comment on above: Performed By: #### TOYN FARLEY 1ST ####[facility] [id number] [place] [address] Calcium mass conc 8.6 mg/dL Low 8.9-10.3 [facility] Comment on above: Performed By: #### M OP, ERCAR 1ST ####[facility] [id number] [place] [address] Chloride molar conc 102 mmol/L Normal 101-111 [facility] Comment on above: Performed By: #### M OP, ERCAR 1ST ####[facility] [id number] [place] [address] CO2 molar conc 25 mmol/L Normal 22-32 [facility] Comment on above: Performed By: #### M OP, ERCAR 1ST ####[facility] [id number] [place] [address] Creatinine mass conc 1.12 mg/dL Normal 0.70-1.20 [facility] Comment on above: Performed By: #### M OP, ERCAR 1ST ####[facility] [id number] [place] [address] GFR/1.73 sq M predicted among non-blacks MDRD vol rate/area (S/P/Bld) mL/min/{1.73_m2} Normal [facility] Comment on above: Result Comment: TO E STIMATE GFR FOR AMERICANS MULTIPLY THE RESULT BY1.21.GFR LESS THAN 60 mL/min/1.73m2: SUGGESTIVE OF CHRONIC KIDNEYDISEASE.GFR LESS THAN 15 mL/min/1.73m2: SUGGESTIVE OF END STAGERENAL DISEASE. Performed By: #### M OP, ERCAR 1ST ####[facility] [id number] [place] [address] Glucose mass conc 120 mg/dL High 74-118 [facility] Comment on above: Result Comment: NOTE IF THIS IS A FASTING SPECIMEN THE FOLLOWING RANGES APPLY: NORMAL 70 TO 99 mg/dL PREDIABETIC 100 TO 125 mg/dL DIABETIC >= 126 mg/dL Performed By: #### M OP, ERCAR 1ST ####[facility] [id number] [place] [address] Osmolality 275 mOSM/kg Normal 275-305 [facility] Comment on above: Performed By: #### M OP, KRYSTLEAR 1ST ####[facility] [id number] [place] [address] Potassium molar conc 4.0 mmol/L Normal 3.6-5.1 [facility] Comment on above: Performed By: #### M OP, KRYSTLEAR 1ST ####[facility] [id number] [place] [address] Sodium molar conc 136 mmol/L Normal 136-144 [facility] Comment on above: Performed By: #### M OP, KRYSTLEAR 1ST ####[facility] [id number] [place] [address] Urea nitrogen mass conc (Bld) 19 mg/dL Normal 8-20 [facility] Comment on above: Performed By: #### M OP, KRYSTLEAR 1ST ####[facility] [id number] [place] [address] Urea nitrogen/Creatinine mass ratio 17.0 mg/mg Normal 6-20 [facility] Comment on above: Performed By: #### M OP, KRYSTLEAR 1ST ####[facility] [id number] [place] [address] GLUCOMETER-FINGERSTICKon Glucose mass conc 162 mg/dL High 78-118 [facility] Comment on above: Result Comment: ACCE PT RESULTS Performed By: #### M OP, KRYSTLEAR 1ST ####[facility] [id number] [place] [address] Glucose mass conc 107 mg/dL Normal 78-118 [facility] Comment on above: Result Comment: ACCE PT RESULTS Performed By: #### M OP, TONY 1ST ####[facility] [id number] [place] [address] CBC WITH DIFFERENTIALon 01-21 ABSOLUTE BASOPHIL COUNT 0 10 3/uL Low 0.02-0.05 [facility] Comment on above: Performed By: #### E RCD, DDT ####[facility] [id number] [place] [address] ABSOLUTE NEUTROPHIL COUNT 3.9 10 3/uL Normal 1.8-7.0 [facility] Comment on above: Performed By: #### E RCD, DDT ####[facility] [id number] [place] [address] Basophils/100 WBC Auto (Bld) 0.8 % Normal 0-1 [facility] Comment on above: Performed By: #### E RCD, DDT ####[facility] [id number] [place] [address] Eosinophils Auto #/vol (Bld) 0.1 10 3/uL Normal 0.05-0.25 [facility] Comment on above: Performed By: #### E RCD, DDT ####[facility] [id number] [place] [address] Eosinophils/100 WBC Auto (Bld) 1.8 % Normal 1-4 [facility] Comment on above: Performed By: #### E RCD, DDT ####[facility] [id number] [place] [address] Hematocrit Auto Volume Fraction (Bld) 46.2 % Normal 41.0-53.0 [facility] Comment on above: Performed By: #### E RCD, DDT ####[facility] [id number] [place] [address] Hemoglobin mass conc (Bld) 14.9 g/dL Normal 13.5-17.5 [facility] Comment on above: Performed By: #### E RCD, DDT ####[facility] [id number] [place] [address] Lymphocytes Auto #/vol (Bld) 1.2 10 3/uL Low 1.5-3.0 [facility] Comment on above: Performed By: #### E RCD, DDT ####[facility] [id number] [place] [address] Lymphocytes/100 WBC Auto (Bld) 20.5 % Low 24-44 [facility] Comment on above: Performed By: #### E RCD, DDT ####[facility] [id number] [place] [address] MCH Auto Entitic mass (RBC) 32.3 GM/DL Normal 31.0-37.0 [facility] Comment on above: Performed By: #### E RCD, DDT ####[facility] [id number] [place] [address] MCV Auto Entitic volume (RBC) 83.6 fL Normal 80.0-100.0 [facility] Comment on above: Performed By: #### E RCD, DDT ####[facility] [id number] [place] [address] MEAN CELL HEMOGLOBIN 27.0 PG Normal 26.0-34.0 [facility] Comment on above: Performed By: #### E RCD, DDT ####[facility] [id number] [place] [address] Monocytes Auto #/vol (Bld) 0.5 10 3/uL Normal 0.1-1.0 [facility] Comment on above: Performed By: #### E RCD, DDT ####[facility] [id number] [place] [address] Monocytes/100 WBC Auto (Bld) 9.0 % High 1-7 [facility] Comment on above: Performed By: #### E RCD, DDT ####[facility] [id number] [place] [address] Platelet mean volume Auto Entitic volume (Bld) 8.5 UM3 Normal 7.4-10.4 [facility] Comment on above: Performed By: #### E RCD, DDT ####[facility] [id number] [place] [address] Platelets Auto #/vol (Bld) 162 TH/MM3 Normal 140-440 [facility] Comment on above: Performed By: #### E RCD, DDT ####[facility] [id number] [place] [address] RBC Auto #/vol (Bld) 5.53 MIL/MM3 Normal 4.50-5.90 [facility] Comment on above: Performed By: #### E RCD, DDT ####[facility] [id number] [place] [address] RED CELL DISTRIBUTION WID 14.5 UNITS Normal 11.5-14.5 [facility] Comment on above: Performed By: #### E RCD, DDT ####[facility] [id number] [place] [address] Segmented neutrophils/100 WBC Manual cnt (Bld) 67.9 % Normal 36-71 [facility] Comment on above: Performed By: #### E RCD, DDT ####[facility] [id number] [place] [address] WBC Auto #/vol (Bld) 5.7 TH/MM3 Normal 4.5-11.0 [facility] Comment on above: Performed By: #### E RCD, DDT ####[facility] [id number] [place] [address] COMPREHENSIVE METABOLIC PANE Hunter 02-02-2018 Anion gap 3 molar conc 10.6 mmol/L Normal 8-22 [facility] Comment on above: Performed By: #### E RCD, DDT ####[facility] [id number] [place] [address] CO2 molar conc 27 mmol/L Normal 22-32 [facility] Comment on above: Performed By: #### E RCD, DDT ####[facility] [id number] [place] [address] ALP enzyme act/vol 67 U/L Normal 38-126 [facility] Comment on above: Performed By: #### E RCD, DDT ####[facility] [id number] [place] [address] ALT/SGPT 25 IU/L Normal 17-63 [facility] Comment on above: Performed By: #### E RCD, DDT ####[facility] [id number] [place] [address] AST/SGOT 17 IU/L Normal 15-41 [facility] Comment on above: Performed By: #### E RCD, DDT ####[facility] [id number] [place] [address] Bilirubin mass conc 1.1 mg/dL Normal 0.4-2.0 [facility] Comment on above: Performed By: #### E RCD, DDT ####[facility] [id number] [place] [address] SGOT/SGPT RATIO 0.7 Normal 0-2 [facility] Comment on above: Performed By: #### E RCD, DDT ####[facility] [id number] [place] [address] Albumin mass conc 3.1 g/dL Low 3.5-4.8 [facility] Comment on above: Performed By: #### E RCD, DDT ####[facility] [id number] [place] [address] Albumin/Globulin mass ratio 1.2 {ratio} Normal 0.9-2.0 [facility] Comment on above: Performed By: #### E RCD, DDT ####[facility] [id number] [place] [address] Calcium mass conc 8.6 mg/dL Low 8.9-10.3 [facility] Comment on above: Performed By: #### E RCD, DDT ####[facility] [id number] [place] [address] Chloride molar conc 106 mmol/L Normal 101-111 [facility] Comment on above: Performed By: #### E RCD, DDT ####[facility] [id number] [place] [address] Creatinine mass conc 1.08 mg/dL Normal 0.70-1.20 [facility] Comment on above: Performed By: #### E RCD, DDT ####[facility] [id number] [place] [address] GFR/1.73 sq M predicted among non-blacks MDRD vol rate/area (S/P/Bld) mL/min/{1.73_m2} Normal [facility] Comment on above: Result Comment: TO E STIMATE GFR FOR AMERICANS MULTIPLY THE RESULT BY1.21.GFR LESS THAN 60 mL/min/1.73m2: SUGGESTIVE OF CHRONIC KIDNEYDISEASE.GFR LESS THAN 15 mL/min/1.73m2: SUGGESTIVE OF END STAGERENAL DISEASE. Performed By: #### E NERI, DDT ####[facility] [id number] [place] [address] Globulin Calculated mass conc (S) 2.7 G/dL Normal [facility] Comment on above: Performed By: #### E NERI, DDT ####[facility] [id number] [place] [address] Glucose mass conc 122 mg/dL High 74-118 [facility] Comment on above: Result Comment: NOTE IF THIS IS A FASTING SPECIMEN THE FOLLOWING RANGES APPLY: NORMAL 70 TO 99 mg/dL PREDIABETIC 100 TO 125 mg/dL DIABETIC >= 126 mg/dL Performed By: #### E NERI, DDT ####[facility] [id number] [place] [address] Osmolality 283 mOSM/kg Normal 275-305 [facility] Comment on above: Performed By: #### E NERI, DDT ####[facility] [id number] [place] [address] Potassium molar conc 3.6 mmol/L Normal 3.6-5.1 [facility] Comment on above: Performed By: #### E NERI, DDT ####[facility] [id number] [place] [address] Protein mass conc 5.8 G/dL Low 6.1-7.9 [facility] Comment on above: Performed By: #### E NERI, DDT ####[facility] [id number] [place] [address] Sodium molar conc 140 mmol/L Normal 136-144 [facility] Comment on above: Performed By: #### E NERI, DDT ####[facility] [id number] [place] [address] Urea nitrogen mass conc (Bld) 18 mg/dL Normal 8-20 [facility] Comment on above: Performed By: #### E NERI, DDT ####[facility] [id number] [place] [address] Urea nitrogen/Creatinine mass ratio 16.7 mg/mg Normal 6-20 [facility] Comment on above: Performed By: #### E NERI, DDT ####[facility] [id number] [place] [address] GLUCOMETER-FINGERSTICKon Glucose mass conc 141 mg/dL High -[address] [place] [address] Comment on above: Result Comment: ACCE PT RESULTS Performed By: #### M TONY BELLAMY 1ST ####[facility] [id number] [place] [address] Glucose mass conc 229 mg/dL High -[address] [place] [address] Comment on above: Result Comment: ACCE PT RESULTS Performed By: #### M TONY BELLAMY 1ST ####[facility] [id number] [place] [address] Glucose mass conc 135 mg/dL High -[address] [place] [address] Comment on above: Result Comment: ACCE PT RESULTS Performed By: #### M TONY BELLAMY 1ST ####[facility] [id number] [place] [address] Glucose mass conc 125 mg/dL High [address] [place] [address] Comment on above: Result Comment: ACCE PT RESULTS Performed By: #### E NERI, DDT ####[facility] [id number] [place] [address] Glucose mass conc 126 mg/dL High 78-118 [facility] Comment on above: Result Comment: ACCE PT RESULTS Performed By: #### E RCD, DDT ####[facility] [id number] [place] [address] HGB A1Con 02-02-2018 Glucose mass conc 240 mg/dL Normal [facility] Comment on above: Performed By: #### Neeta BELLAMY, TONY 1ST ####[facility] [id number] [place] [address] Hemoglobin A1c/Hemoglobin.tota l mass fraction (Bld) 10.0 % High 4.1-5.6 [facility] Comment on above: Result Comment: REFERENCE RANGE Y6O ANY MAL= 4.1 TO 5.6 PRE DIABETIC RANGE = 5.7 TO 6.4 STEPHANIE BETIC RANGE = >= 6.5 Performed By: #### M OP, ERCAR 1ST ####[facility] [id number] [place] [address] LIPID CARE PANELon 8 Cholesterol in LDL mass conc 142.6 mg/dL High 10-130 [facility] Comment on above: Result Comment: RISK LEVELS < 130 MG/DL DESIRABLE LDL 130-159 MG/DL BORDERLINE HIGH RISK LDL >OR= 160 MG/DL HIGH RISK LDL Performed By: #### E RCD, DDT ####[facility] [id number] [place] [address] Cholesterol mass conc 185 mg/dL Normal 82-200 [facility] Comment on above: Result Comment: THE NATIONAL CHOLESTEROL EDUCATION PROGRAM HAS PUBLISHEDREFERENCE CHOLESTEROL VALUES FOR CARDIOVASCULAR RISK TO BE:DESIRABLE LESS THAN 200 mg/dLBORDERLINE HIGH 200-239 mg/dLHIGH GREATER THAN EQUAL TO 240 mg/dL Performed By: #### E RCD, DDT ####[facility] [id number] [place] [address] Cholesterol.total/C holesterol in HDL mass ratio 6.9 {ratio} High 0.1-4.0 [facility] Comment on above: Performed By: #### E RCD, DDT ####[facility] [id number] [place] [address] HDL DIRECT CHOLESTEROL 27 mg/dL Low 29-71 [facility] Comment on above: Result Comment: CARD IOVASCULAR RISK: LOW - GREATER THAN OR EQUAL TO 60 mg/dLCARDIOVASCULAR RISK: HIGH - LESS THAN 40 mg/dL Performed By: #### E RCD, DDT ####[facility] [place] [address] Triglyceride mass conc 77 mg/dL Normal 10-200 [facility] Comment on above: Result Comment: NORM AL LESS THAN 150 MG/DLBORDERLINE OR HIGH 150-199 MG/DLHIGH 200-499 MG/DLVERY HIGH GREATER THAN OR EQUAL TO 500 MG/DL Performed By: #### E RCD, DDT ####[facility] [id number] [place] [address] B-TYPE NATRIURETIC PEPTIDEon 02-01-2018 Natriuretic peptide B mass conc (Bld) 320.0 pg/mL High 5-100 [facility] Comment on above: Order Comment: Speci [facility] to be collected later? [facility]: 1 Result Comment: [facility] CLINICAL CARDIOLOGYREFERENCE FOR BNP INTERPRETATION IS:BNP LEVEL: INTERPRETATION:EQUAL OR LESS THAN 100 pg/mL NEGATIVEGREATER THAN 100 pg/mL POSITIVEGREATER THAN 200 pg/mL HIGH CORRELATION WITH. LEFT HEART FAILURE.ADDITIONAL INTERPRETATIONS:< 100 pg/mL - HIGHLY UNLIKELY THAT PATIENT'S SYMPTOMS RESULT FROM SYSTOLIC OR DIASTOLIC DYSFUNCTION.> 100 - 200 pg/mL - BNP >100 PG/ML IS CONSIDERED POSITIVE AND INDICATIVE OF HEART FAILURE. LV DYSFUNCTION WITH NO ACUTE CHF = 141 (+/- 31). SEVERE RIGHT HEART FAILURE, PULM. HTN, OR LARGE PULM. EMBOLUS MAY = 100 - 200 PG/ML>200 pg/mL - ALMOST ALWAYS LEFT HEART FAILURE. AMI WITH CHF MAY HAVE ELEVATED LEVELS; POSITIVE BNP SHOULD NOT BE VIEWED EXCLUDING A DIAGNOSIS OF AMI.> 480 pg/mL - PATIENTS WHO PRESENT WITH DYSPNEA AND BNP LEVEL GREATER OR EQUAL TO 480 HAVE A NEARLY 30 FOLD INCREASE RISK FOR A CARDIAC EVENT IN THE NEXT 6 MONTHS. Performed By: #### B FAMILY LAW PARALEGAL ####[facility] [id number] [place] [address] BASIC METABOLIC PANELon 01-21 Anion gap 3 molar conc 9.9 mmol/L Normal 8-22 [facility] Comment on above: Performed By: #### E RCD, DDT ####[facility] [id number] [place] [address] Calcium mass conc 8.5 mg/dL Low 8.9-10.3 [facility] Comment on above: Performed By: #### E RCD, DDT ####[facility] [id number] [place] [address] Chloride molar conc 106 mmol/L Normal 101-111 [facility] Comment on above: Performed By: #### E RCD, DDT ####[facility] [id number] [place] [address] CO2 molar conc 24 mmol/L Normal 22-32 [facility] Comment on above: Performed By: #### E RCD, DDT ####[facility] [id number] [place] [address] Creatinine mass conc 1.05 mg/dL Normal 0.70-1.20 [facility] Comment on above: Performed By: #### E RCD, DDT ####[facility] [id number] [place] [address] GFR/1.73 sq M predicted among non-blacks MDRD vol rate/area (S/P/Bld) mL/min/{1.73_m2} Normal [facility] Comment on above: Result Comment: TO E STIMATE GFR FOR AMERICANS MULTIPLY THE RESULT BY1.21.GFR LESS THAN 60 mL/min/1.73m2: SUGGESTIVE OF CHRONIC KIDNEYDISEASE.GFR LESS THAN 15 mL/min/1.73m2: SUGGESTIVE OF END STAGERENAL DISEASE. Performed By: #### E RCD, DDT ####[facility] [id number] [place] [address] Glucose mass conc 265 mg/dL High 74-118 [facility] Comment on above: Result Comment: NOTE IF THIS IS A FASTING SPECIMEN THE FOLLOWING RANGES APPLY: NORMAL 70 TO 99 mg/dL PREDIABETIC 100 TO 125 mg/dL DIABETIC >= 126 mg/dL Performed By: #### E RCD, DDT ####[facility] [id number] [place] [address] Osmolality 283 mOSM/kg Normal 275-305 [facility] Comment on above: Performed By: #### E RCD, DDT ####[facility] [id number] [place] [address] Potassium molar conc 3.9 mmol/L Normal 3.6-5.1 [facility] Comment on above: Performed By: #### E RCD, DDT ####[facility] [id number] [place] [address] Sodium molar conc 136 mmol/L Normal 136-144 [facility] Comment on above: Performed By: #### E RCD, DDT ####[facility] [id number] [place] [address] Urea nitrogen mass conc (Bld) 19 mg/dL Normal 8-20 [facility] Comment on above: Performed By: #### E RCD, DDT ####[facility] [id number] [place] [address] Urea nitrogen/Creatinine mass ratio 18.1 mg/mg Normal 6-20 [facility] Comment on above: Performed By: #### E RCD, DDT ####[facility] [id number] [place] [address] BLOOD CELL PROFILE CBCS+on 0 02-01-2018 Hematocrit Auto Volume Fraction (Bld) 45.0 % Normal 41.0-53.0 [facility] Comment on above: Performed By: #### E RCD, DDT ####[facility] [id number] [place] [address] Hemoglobin mass conc (Bld) 14.5 g/dL Normal 13.5-17.5 [facility] Comment on above: Performed By: #### E RCD, DDT ####[facility] [id number] [place] [address] MCH Auto Entitic mass (RBC) 32.3 GM/DL Normal 31.0-37.0 [facility] Comment on above: Performed By: #### E RCD, DDT ####[facility] [id number] [place] [address] MCV Auto Entitic volume (RBC) 83.8 fL Normal 80.0-100.0 [facility] Comment on above: Performed By: #### E RCD, DDT ####[facility] [id number] [place] [address] MEAN CELL HEMOGLOBIN 27.0 PG Normal 26.0-34.0 [facility] Comment on above: Performed By: #### E RCD, DDT ####[facility] [id number] [place] [address] Platelet mean volume Auto Entitic volume (Bld) 8.6 UM3 Normal 7.4-10.4 [facility] Comment on above: Performed By: #### E RCD, DDT ####[facility] [id number] [place] [address] Platelets Auto #/vol (Bld) 162 TH/MM3 Normal 140-440 [facility] Comment on above: Performed By: #### E RCD, DDT ####[facility] [id number] [place] [address] RBC Auto #/vol (Bld) 5.37 MIL/MM3 Normal 4.50-5.90 [facility] Comment on above: Performed By: #### E RCD, DDT ####[facility] [id number] [place] [address] RED CELL DISTRIBUTION WID 14.5 UNITS Normal 11.5-14.5 [facility] Comment on above: Performed By: #### E RCD, DDT ####[facility] [id number] [place] [address] WBC Auto #/vol (Bld) 5.3 TH/MM3 Normal 4.5-11.0 [facility] Comment on above: Performed By: #### E RCD, DDT ####[facility] [id number] [place] [address] CLOT TO HOLDon 04-12-2018 CLOT TO HOLD RECEIVED Normal [facility] Comment on above: Performed By: #### E RCD, DDT ####[facility] [id number] [place] [address] COMPREHENSIVE METABOLIC PANE Hunter 02-01-2018 ALP enzyme act/vol 86 U/L Normal 38-126 [facility] Comment on above: Order Comment: Speci men to be collected later? [facility]COMMENT: 1IF THIS IS A STEMI PATIENT, CALL THE LAB AND LET THEM KNOW!1Specimen to be collected later? 1 Performed By: #### M OP, ERCAR 1ST ####[facility] [id number] [place] [address] ALT/SGPT 33 IU/L Normal 17-63 [facility] Comment on above: Order Comment: Speci men to be collected later? [facility]COMMENT: 1IF THIS IS A STEMI PATIENT, CALL THE LAB AND LET THEM KNOW!1Specimen to be collected later? 1 Performed By: #### M OP, ERCAR 1ST ####[facility] [id number] [place] [address] AST/SGOT 23 IU/L Normal 15-41 [facility] Comment on above: Order Comment: Speci men to be collected later? [facility] 1COMMENT: 1IF THIS IS A STEMI PATIENT, CALL THE LAB AND LET THEM KNOW!1Specimen to be collected later? 1 Performed By: #### M OP, ERCAR 1ST ####[facility] [id number] [place] [address] Bilirubin mass conc 0.8 mg/dL Normal 0.4-2.0 [facility] Comment on above: Order Comment: Speci men to be collected later? [facility] INST. 1COMMENT: 1IF THIS IS A STEMI PATIENT, CALL THE LAB AND LET THEM KNOW!1Specimen to be collected later? 1 Performed By: #### M OP, ERCAR 1ST ####[facility] [id number] [place] [address] SGOT/SGPT RATIO 0.7 Normal 0-2 [facility] Comment on above: Order Comment: Speci men to be collected later? [facility] INST. 1COMMENT: 1IF THIS IS A STEMI PATIENT, CALL THE LAB AND LET THEM KNOW!1Specimen to be collected later? 1 Performed By: #### M OP, ERCAR 1ST ####[facility] [id number] [place] [address] Albumin mass conc 3.8 g/dL Normal 3.5-4.8 [facility] Comment on above: Order Comment: Speci men to be collected later? [facility] INST. 1COMMENT: 1IF THIS IS A STEMI PATIENT, CALL THE LAB AND LET THEM KNOW!1Specimen to be collected later? 1 Performed By: #### M OP, ERCAR 1ST ####[facility] [id number] [place] [address] Albumin/Globulin mass ratio 1.2 {ratio} Normal 0.9-2.0 [facility] Comment on above: Order Comment: Speci men to be collected later? [facility] IN[facility]. 1COMMENT: 1IF THIS IS A STEMI PATIENT, CALL THE LAB AND LET THEM KNOW!1Specimen to be collected later? 1 Performed By: #### M OP, ERCAR 1ST ####[facility] [id number] [place] [address] Anion gap 3 molar conc 12.3 mmol/L Normal 8-22 [facility] Comment on above: Order Comment: Speci men to be collected later? [facility] IN[facility]. 1COMMENT: 1IF THIS IS A STEMI PATIENT, CALL THE LAB AND LET THEM KNOW!1Specimen to be collected later? 1 Performed By: #### M OP, ERCAR 1ST ####[facility] [id number] [place] [address] Calcium mass conc 8.7 mg/dL Low 8.9-10.3 [facility] Comment on above: Order Comment: Speci men to be collected later? [facility] [facility] INST. 1COMMENT: 1IF THIS IS A STEMI PATIENT, CALL THE LAB AND LET THEM KNOW!1Specimen to be collected later? 1 Performed By: #### M OP, ERCAR 1ST ####[facility] [id number] [place] [address] Chloride molar conc 101 mmol/L Normal 101-111 [facility] Comment on above: Order Comment: Speci men to be collected later? [facility] INST. 1COMMENT: 1IF THIS IS A STEMI PATIENT, CALL THE LAB AND LET THEM KNOW!1Specimen to be collected later? 1 Performed By: #### M OP, ERCAR 1ST ####[facility] [id number] [place] [address] CO2 molar conc 26 mmol/L Normal 22-32 [facility] Comment on above: Order Comment: Speci men to be collected later? [facility] INST. 1COMMENT: 1IF THIS IS A STEMI PATIENT, CALL THE LAB AND LET THEM KNOW!1Specimen to be collected later? 1 Performed By: #### M OP, ERCAR 1ST ####[facility] [id number] [place] [address] Creatinine mass conc 1.24 mg/dL High 0.70-1.20 [facility] Comment on above: Order Comment: Speci men to be collected later? [facility] INST. 1COMMENT: 1IF THIS IS A STEMI PATIENT, CALL THE LAB AND LET THEM KNOW!1Specimen to be collected later? 1 Performed By: #### M OP, ERCAR 1ST ####[facility] [id number] [place] [address] GFR/1.73 sq M predicted among non-blacks MDRD vol rate/area (S/P/Bld) 60 mL/min/{1.73_m2} Normal [facility] Comment on above: Order Comment: Speci men to be collected later? [facility] INST. 1COMMENT: 1IF THIS IS A STEMI PATIENT, CALL THE LAB AND LET THEM KNOW!1Specimen to be collected later? 1 Result Comment: TO E STIMATE GFR FOR AMERICANS MULTIPLY THE RESULT BY1.21.GFR LESS THAN 60 mL/min/1.73m2: SUGGESTIVE OF CHRONIC KIDNEYDISEASE.GFR LESS THAN 15 mL/min/1.73m2: SUGGESTIVE OF END STAGERENAL DISEASE. Performed By: #### M OP, ERCAR 1ST ####[facility] [id number] [place] [address] Globulin Calculated mass conc (S) 3.3 G/dL Normal [facility] Comment on above: Order Comment: Speci men to be collected later? [facility] INST. 1COMMENT: 1IF THIS IS A STEMI PATIENT, CALL THE LAB AND LET THEM KNOW!1Specimen to be collected later? 1 Performed By: #### M OP, TONY 1ST ####[facility] [id number] [place] [address] Glucose mass conc 346 mg/dL High 74-118 [facility] Comment on above: Order Comment: Speci men to be collected later? [facility]: 1IF THIS IS A STEMI PATIENT, CALL THE LAB AND LET THEM KNOW!1Specimen to be collected later? 1 Result Comment: NOTE IF THIS IS A FASTING SPECIMEN THE FOLLOWING RANGES APPLY: NORMAL 70 TO 99 mg/dL PREDIABETIC 100 TO 125 mg/dL DIABETIC >= 126 mg/dL Performed By: #### M OP, TONY 1ST ####[facility] [id number] [place] [address] Osmolality 286 mOSM/kg Normal 275-305 [facility] Comment on above: Order Comment: Speci men to be collected later? [facility] INST. 1COMMENT: 1IF THIS IS A STEMI PATIENT, CALL THE LAB AND LET THEM KNOW!1Specimen to be collected later? 1 Performed By: #### M OP, TONY 1ST ####[facility] [id number] [place] [address] Potassium molar conc 4.3 mmol/L Normal 3.6-5.1 [facility] Comment on above: Order Comment: Speci men to be collected later? [facility] INST. 1COMMENT: 1IF THIS IS A STEMI PATIENT, CALL THE LAB AND LET THEM KNOW!1Specimen to be collected later? 1 Performed By: #### M OP, ERCAR 1ST ####[facility] [id number] [place] [address] Protein mass conc 7.1 G/dL Normal 6.1-7.9 [facility] Comment on above: Order Comment: Speci men to be collected later? [facility] INST. 1COMMENT: 1IF THIS IS A STEMI PATIENT, CALL THE LAB AND LET THEM KNOW!1Specimen to be collected later? 1 Performed By: #### M OP, ERCAR 1ST ####[facility] [id number] [place] [address] Sodium molar conc 135 mmol/L Low 136-144 [facility] Comment on above: Order Comment: Speci men to be collected later? [facility] INST. 1COMMENT: 1IF THIS IS A STEMI PATIENT, CALL THE LAB AND LET THEM KNOW!1Specimen to be collected later? 1 Performed By: #### M OP, ERCAR 1ST ####[facility] [id number] [place] [address] Urea nitrogen mass conc (Bld) 19 mg/dL Normal 8-20 [facility] Comment on above: Order Comment: Speci men to be collected later? [facility] INST. 1COMMENT: 1IF THIS IS A STEMI PATIENT, CALL THE LAB AND LET THEM KNOW!1Specimen to be collected later? 1 Performed By: #### M OP, ERCAR 1ST ####[facility] [id number] [place] [address] Urea nitrogen/Creatinine mass ratio 15.3 mg/mg Normal 6-20 [facility] Comment on above: Order Comment: Speci men to be collected later? [facility] INST. 1COMMENT: 1IF THIS IS A STEMI PATIENT, CALL THE LAB AND LET THEM KNOW!1Specimen to be collected later? 1 Performed By: #### M OP, ERCAR 1ST ####[facility] [id number] [place] [address] D-DIMER TESTon 02-01-2018 D-DIMER TEST 2.22 MG/L FEU High <0.5 [facility] Comment on above: Order Comment: Speci men to be collected later? [facility] IN[facility]. 1COMMENT: 1 Result Comment: THRO MBOEMBOLIC EVENTS ARE HIGHLY UNLIKELY IN PATIENTS UNDER50 YEARS IF D-DIMER RESULTS ARE BELOW 0.50 mg/L FEU INCOMBINATION WITH A NON-HIGH CLINICAL PRETEST PROBABILITYSCORE.USE AGE ADJUSTED D-DIMER THRESHOLDS FOR PATIENTS OLDER THAN50 YEARS TO DETERMINE IF IMAGING IS WARRANTED TO RULE OUTPULMONARY EMBOLISM. AT [facility], THE AGE ADJUSTED THRESHOLD ISCALCULATED AGE X 0.01 mg/L FEU.FALSE NEGATIVE RESULTS ARE POSSIBLE IN PATIENTS ONANTICOAGULANT THERAPY. Performed By: #### E RCD, DDT ####[facility] [id number] [place] [address] ED CTA Chest WOW [id number] ED CTA Chest WOW [id number] EXAM: ED CTA [facility] WOW [id number] [facility]E VISIT: [id number]: 1960 SEX: M DEPT NO: [id number] LOCATION: ER1 EXAM: ED CTA Chest WOW [id number]/01/2018 09:43:00 SIGNS AND SYMPTOMS: PERTINENT SYMPTOMS: PERTINENT SYMPTOMS: chest pain, elevated d-dimer, abnormal CXR Requesting Provider: CM LIANG - CLINICAL INDICATION: Chest pain elevated d-dimer abnormal chest x-rayCTA ChestTECHNIQUE: CTA of the chest was done with IV contrast administered.Thin axial slices were obtained in 3 mm intervals through the chest.Sagittal, coronal, MIP and 3-D reconstructed images were obtained.All CT scans at this facility use dose modulation, iterativereconstruction , and weight based dosing when appropriate to reduceradiation dose to as low as reasonably achievable.COMPARISON: NoneFINDINGS:Good visualization is seen of the aorta and pulmonary arteries arenoted. The aorta appears normal. The main pulmonary artery andsegmental branches of the pulmonary artery are seen and there is noevidence of intraluminal thrombus noted. The lung parenchyma isclear. No infiltrate is seen. No pleural effusion is seen. The bonyrib cages are normal. Bilateral pleural effusion is seen.Intra-abdominal structures are normal.IMPRESSION:No evidence of intraluminal thrombus is seen. Bilateral pleuraleffusion. Performed By: Teressa Flor 02/01/2018 09:43:00Signed By: PHOEBE TUCKER MD 02/01/2018 10:02:00 Normal [facility] EMERG Chest & LEFT Lateral 7 1046on 02-01-2018 EMERG Chest & LEFT Lateral [id number] EXAM: EMERG Chest & LEFT Lateral 36279 [facility]REWS VALENTE VISIT: [id number]: 1960 SEX: M DEPT NO: [id number] LOCATION: ER1 EXAM: EMERG Chest & LEFT Lateral [id number]/01/2018 08:41:00 SIGNS AND SYMPTOMS: PERTINENT SYMPTOMS: PERTINENT SYMPTOMS: dyspnea, chest pain Requesting Provider: CM LIANG - COMPARISON: 08/31/2005FINDINGS:The cardiac and mediastinal contours are grossly unremarkable.There is subtle left perihilar opacity. The right hilum appearsslightly prominent in terms of size and density when compared withthe prior chest x-ray. No pleural effusion or pneumothorax isidentified.IMPRESSION:1. Subtle right hilar prominence. Adenopathy/mass cannot be excluded.Follow-up CT imaging should be considered for further evaluation.2. Subtle left perihilar opacity may represent atelectasis. Pneumoniashould be clinically excluded. Performed By: Carlita Montalvo 02/01/2018 08:41:00Signed By: ARTUR GANDARA MD 02/01/2018 08:45:00 Normal [facility] ER CBC WITH DIFFERENTIALon 0 02-01-2018 ABSOLUTE BASOPHIL COUNT 0 10 3/uL Low 0.02-0.05 [facility] Comment on above: Order Comment: Speci men to be collected later? [facility]: 1 Performed By: #### E DANIELA HE ####[facility] [id number] [place] [address] ABSOLUTE NEUTROPHIL COUNT 5.1 10 3/uL Normal 1.8-7.0 [facility] Comment on above: Order Comment: Speci men to be collected later? [facility] 1[facility]MENT: 1 Performed By: #### E RCD, DDT ####[facility] [id number] [place] [address] Basophils/100 WBC Auto (Bld) 0.7 % Normal 0-1 [facility] Comment on above: Order Comment: Speci men to be collected later? [facility] IN[facility]. 1COMMENT: 1 Performed By: #### E RCD, DDT ####[facility] [id number] [place] [address] Eosinophils Auto #/vol (Bld) 0 10 3/uL Low 0.05-0.25 [facility] Comment on above: Order Comment: Speci men to be collected later? [facility] IN[facility]. 1COMMENT: 1 Performed By: #### E RCD, DDT ####[facility] [id number] [place] [address] Eosinophils/100 WBC Auto (Bld) 0.3 % Low 1-4 [facility] Comment on above: Order Comment: Speci men to be collected later? [facility] IN[facility]. 1COMMENT: 1 Performed By: #### E RCD, DDT ####[facility] [id number] [place] [address] Hematocrit Auto Volume Fraction (Bld) 51.4 % Normal 41.0-53.0 [facility] Comment on above: Order Comment: Speci men to be collected later? [facility] IN[facility]. 1COMMENT: 1 Performed By: #### E RCD, DDT ####[facility] [id number] [place] [address] Hemoglobin mass conc (Bld) 16.4 g/dL Normal 13.5-17.5 [facility] Comment on above: Order Comment: Speci men to be collected later? [facility] IN[facility]. 1COMMENT: 1 Performed By: #### E RCD, DDT ####[facility] [id number] [place] [address] Lymphocytes Auto #/vol (Bld) 0.8 10 3/uL Low 1.5-3.0 [facility] Comment on above: Order Comment: Speci men to be collected later? [facility] IN[facility]. 1COMMENT: 1 Performed By: #### E RCD, DDT ####[facility] [id number] [place] [address] Lymphocytes/100 WBC Auto (Bld) 12.1 % Low 24-44 [facility] Comment on above: Order Comment: Speci men to be collected later? [facility] IN[facility]. 1COMMENT: 1 Performed By: #### E RCD, DDT ####[facility] [id number] [place] [address] MCH Auto Entitic mass (RBC) 31.9 GM/DL Normal 31.0-37.0 [facility] Comment on above: Order Comment: Speci men to be collected later? [facility] IN[facility]. 1COMMENT: 1 Performed By: #### E RCD, DDT ####[facility] [id number] [place] [address] MCV Auto Entitic volume (RBC) 84.4 fL Normal 80.0-100.0 [facility] Comment on above: Order Comment: Speci men to be collected later? [facility] IN[facility]. 1COMMENT: 1 Performed By: #### E RCD, DDT ####[facility] [id number] [place] [address] MEAN CELL HEMOGLOBIN 26.9 PG Normal 26.0-34.0 [facility] Comment on above: Order Comment: Speci men to be collected later? [facility] IN[facility]. 1COMMENT: 1 Performed By: #### E RCD, DDT ####[facility] [id number] [place] [address] Monocytes Auto #/vol (Bld) 0.4 10 3/uL Normal 0.1-1.0 [facility] Comment on above: Order Comment: Speci men to be collected later? [facility] IN[facility]. 1COMMENT: 1 Performed By: #### E RCD, DDT ####[facility] [id number] [place] [address] Monocytes/100 WBC Auto (Bld) 5.8 % Normal 1-7 [facility] Comment on above: Order Comment: Speci men to be collected later? [facility] IN[facility]. 1COMMENT: 1 Performed By: #### E RCD, DDT ####[facility] [id number] [place] [address] Platelet mean volume Auto Entitic volume (Bld) 8.4 UM3 Normal 7.4-10.4 [facility] Comment on above: Order Comment: Speci men to be collected later? [facility] IN[facility]. 1COMMENT: 1 Performed By: #### E RCD, DDT ####[facility] [id number] [place] [address] Platelets Auto #/vol (Bld) 175 TH/MM3 Normal 140-440 [facility] Comment on above: Order Comment: Speci men to be collected later? [facility] IN[facility]. 1COMMENT: 1 Performed By: #### E RCD, DDT ####[facility] [id number] [place] [address] RBC Auto #/vol (Bld) 6.09 MIL/MM3 High 4.50-5.90 [facility] Comment on above: Order Comment: Speci men to be collected later? [facility] IN[facility]. 1COMMENT: 1 Performed By: #### E RCD, DDT ####[facility] [id number] [place] [address] RED CELL DISTRIBUTION WID 14.6 UNITS High 11.5-14.5 [facility] Comment on above: Order Comment: Speci men to be collected later? [facility] IN[facility]. 1COMMENT: 1 Performed By: #### E RCD, DDT ####[facility] [id number] [place] [address] Segmented neutrophils/100 WBC Manual cnt (Bld) 81.1 % High 36-71 [facility] Comment on above: Order Comment: Speci men to be collected later? [facility] IN[facility]. 1COMMENT: 1 Performed By: #### E RCD, DDT ####[facility] [id number] [place] [address] WBC Auto #/vol (Bld) 6.3 TH/MM3 Normal 4.5-11.0 [facility] Comment on above: Order Comment: Speci men to be collected later? [facility] IN[facility]. 1COMMENT: 1 Performed By: #### E RCD, DDT ####[facility] [id number] [place] [address] ER NOTEon 02-01-2018 ER NOTE TRIAGE (MonFeb 01, 2018 07:37 KT3)TRIAGE NOTES: Patient ambulates to bed 9 for bedside triage. (MonFeb 01, 2018 07:37 KT3)PATIENT: NAME: Andrews Valente, AGE: 57, GENDER: male, : Mon1960, TIME OF GREET: MonFeb 01, 2018 07:34, PREFERRED LANGUAGE: [place], SSN: [id number], Zip Code: [facility], PHONE: [phone], , , Family MD: KAILEY NIEVES, MRSA/VRE - VERIFY: No, P/A DRUG SCREEN RQ?: NO. (MonFeb 01, 2018 07:37 KT3) KG WEIGHT: 97.52. (MonFeb 01, 2018 07:39 CJO)ADMISSION: URGENCY: RN TO ASSESS, DEPT: Emergency, BED: POD1 09. (MonFeb 01, 2018 07:37 KT3)COMPLAINT: Pt Sts Sob Chest Presure. (MonFeb 01, 2018 07:37 KT3)ASSESSMENT: PT AMBULATES TO ROOM 9 FOR BEDSIDE TRIAGE. PT WITH COMPLAINTS OF SOB , COUGH AND FEVER X 1 MONTH. PT REPORTS HE HAS HAD FEVERS OF 101 OFF AND ON FOR THE LAST MONTH. PT REPORTS NON PRODUCTIVE COUGH AND FEELING SOB. PT STATES CHEST PRESSURE NOT PAIN WHEN HE COUGHS OR BENDS OVER TO PICK SOMETHING UP. PT IS A&OX3. NAD NOTED. FDS COMPLETE. (MonFeb 01, 2018 07:39 CJO)PAIN: Triage assessment performed. (MonFeb 01, 2018 07:39 CJO)ABUSE SCREENING: No domestic violence. (MonFeb 01, 2018 07:39 CJO)BH SCREENIN. In the last 30 days have you wished you were or wished you could go to sleep and not wake up? No, 2. In the last 30 days have you had any actual thoughts of killing yourself? No, 6. Have you ever done anything, started to do anything, or prepared to do anything to end your life? No, Patient screens as no Identifiable suicide risk. (MonFeb 01, 2018 07:39 CJO)PROVIDERS: TRIAGE NURSE: Diane Hu R.N. (MonFeb 01, 2018 07:37 KT3)PREVIOUS VISIT ALLERGIES: NKDA. (MonFeb 01, 2018 07:37 KT3) NKDA. (MonFeb 01, 2018 07:39 CJO)KNOWN ALLERGIESNKDACURRENT MEDICATIONS (MonFeb 01, 2018 07:40 CJO)NoneHPI CHEST PAIN (MonFeb 01, 2018 07:59 MDTR)CHIEF COMPLAINT: Patient presents for evaluation of chest pain.HISTORIAN: History provided by patient, Patient presents with chest pain that is intermittent but frequently present over last month it is a pressure-type sensation. He has associated shortness of breath, and has had some cough. He has some orthopnea. Occasional leg edema. No history of abnormal ECG is known to the patient and no known history of CAD. Patient does have a history of hypertension and is currently untreated. No family members with premature coronary artery disease.LOCATION: Central chest, radiates to the neck with exertion.QUALITY: Pain is dull in nature, described as pressure-like.SEVERITY: Current severity of pain rated as 8/10.TIME COURSE: Intermittent pain, for about 1 month.ASSOCIATED WITH: Associated with cough, No associated diaphoresis, Associated with fever, No associated nausea, No associated upper respiratory infection, No associated vomiting, Occasional palpitations, dyspnea on exertion. Patient reports fever in the past month but not in the recent past.EXACERBATED BY: Patient's condition exacerbated by exercise, Patient's condition exacerbated by movement, Patient's condition exacerbated by walking.RISK FACTORS: Coronary artery disease risk factors, No known cocaine use, no known coronary artery disease, no diabetes, no family history, no high cholesterol, include hypertension, no smoking, Pulmonary embolism risk factors, no coagulation disorder, no estrogen supplement, No Spencer Filter, no immobilization, no malignancy, no morbid obesity, no , no prior deep vein thrombosis, no prior pulmonary embolism, no recent general anesthesia, no smoking, no surgery.ROS (MonFeb 01, 2018 08:04 MDTR)CONSTITUTIONAL: Historian reports fever, Historian denies weight loss.ENT: Historian denies rhinorrhea, Historian denies sore throat.CARDIOVASCULAR: Historian reports chest pain, Historian denies diaphoresis, Historian reports palpitations.RESPIRATORY: Historian reports cough.GI: Historian denies abdominal pain, Historian denies hematochezia, Historian denies melena, Historian denies nausea, Historian denies vomiting.GENITOURINARY MALE: Historian denies dysuria, Historian denies hematuria.NEUROLOGIC: Historian denies focal weakness, Historian denies gait changes, Historian denies headache.HEMO/LYMPHATIC: Historian denies abnormal blood clotting.PSYCHIATRIC: Historian denies alcohol abuse, Historian denies drug abuse.NOTES: All systems reviewed, negative except as described above.PAST MEDICAL HISTORYMEDICAL HISTORY: Past medical history includes gastrointestinal disease, diverticulitis, Notes: CHILDHOOD ASTHMA. (MonFeb 01, 2018 07:39 CJO) Notes: hypertension - untreated. (MonFeb 01, 2018 08:03 MDTR)SURGICAL HISTORY MALE: Patient has no surgical history. (MonFeb 01, 2018 07:39 CJO)PSYCHIATRIC HISTORY: Notes: NO HISTORY. (MonFeb 01, 2018 07:39 CJO)SOCIAL HISTORY: Patient denies alcohol use, Patient denies drug use, Patient currently uses tobacco, chews tobacco. (MonFeb 01, 2018 07:39 CJO) Social History includes non smoker. (MonFeb 01, 2018 08:03 MDTR)FAMILY HISTORY: Family istory is not significant. (MonFeb 01, 2018 08:03 MDTR)NOTES: Nursing records reviewed, Agree with nursing records, Medication list reviewed. (MonFeb 01, 2018 07:39 CJO) Nursing records reviewed. (MonFeb 01, 2018 08:03 MDTR)PHYSICAL EXAMCONSTITUTIONAL: Patient afebrile, Pulse, tachycardic, 123/m, Blood pressure, hypertensive, 194/138, Respiratory rate normal, Patient appears non toxic, Patient alert and oriented to person, place and time. (MonFeb 01, 2018 07:45 MDTR)EYES: Conjunctiva normal, Sclera normal. (MonFeb 01, 2018 08:04 MDTR)ENT: Pharynx exam normal, not injected, Mouth exam normal, mucous membranes moist. (MonFeb 01, 2018 08:04 MDTR)NECK: no meningeal signs, no cervical adenopathy. (MonFeb 01, 2018 08:04 MDTR)RESPIRATORY CHEST: Respiratory exam included findings of no respiratory distress, No wheezing, no tenderness, b/l basilar crackles. (MonFeb 01, 2018 08:04 MDTR)CARDIOVASCULAR: Heart rate, tachycardic, Regular. (MonFeb 01, 2018 08:04 MDTR)ABDOMEN MALE: Abdominal exam included findings of abdomen nontender, Bowel sounds normal, no distension, obese abdomen. (MonFeb 01, 2018 08:04 MDTR)UPPER EXTREMITY: Upper extremity exam included findings of inspection normal, Range of motion normal, Motor strength normal. (MonFeb 01, 2018 08:04 MDTR)LOWER EXTREMITY: Lower extremity exam included findings of inspection normal, Range of motion normal, Motor strength normal, no edema, no calf tenderness. (MonFeb 01, 2018 08:04 MDTR)NEURO: Neuro exam findings include patient oriented to person, place and time, Speech normal, Gait normal, Memory normal, no focal motor deficits. (MonFeb 01, 2018 08:04 MDTR)SKIN: Skin exam included findings of skin warm, dry, and normal in color. (MonFeb 01, 2018 08:04 MDTR)PSYCHIATRIC: Psychiatric exam included findings of patient oriented to person place and time, Remote memory normal, Recent memory normal. (MonFeb 01, 2018 08:04 MDTR)DOCTOR NOTESNOTES: Chest pain, hyperglycemia, left bundle-branch block, elevated troponin, uncontrolled hypertension, increased d-dimer. (MonFeb 01, 2018 09:27 MDTR) Discussed with Dr. Adler; will hold anti-coagulation for the time being, and monitor the patient, pending second troponin. Will admit patient for further evaluation and treatment. (MonFeb 01, 2018 11:25 MDTR) Discussed with Dr. Jimenez; patient admitted for further monitoring and treatment. (MonFeb 01, 2018 12:06 MDTR) Previous ECG obtained from the office of Dr. Kailey Nieves. Normal sinus rhythm, without bundle-branch block was noted at that time, but ECG was from August 2005. (MonFeb 01, 2018 12:15 MDTR)VITAL SIGNSVITAL SIGNS: Pulse: 123, Resp: 18, Temp: 97.0, Pain: 0, O2 sat: 98 on (RA). (MonFeb 01, 2018 07:40 CJO) BP: 194/138. (MonFeb 01, 2018 07:44 CJO) BP: 198/145, Pulse: 121, Resp: 18, Pain: 7, O2 sat: 97 on (RA). (MonFeb 01, 2018 08:02 KM8) BP: 164/113, Pulse: 119, Resp: 18, Pain: 4-5, O2 sat: 97. (MonFeb 01, 2018 08:08 KM8) BP: 159/106, Pulse: 113, Resp: 18, Pain: 2-3, O2 sat: 94. (MonFeb 01, 2018 08:14 KM8) BP: 155/104, Pulse: 113, Resp: 18, Pain: 1, O2 sat: 93. (MonFeb 01, 2018 08:20 KM8) BP: 163/105, Pulse: 109, Resp: 18, Pain: 1, O2 sat: 96 on (RA). (MonFeb 01, 2018 08:35 KM8) BP: 148/90. (MonFeb 01, 2018 08:36 KM8) BP: 138/85, Pulse: 95, Resp: 22, Pain: 0, O2 sat: 94. (MonFeb 01, 2018 08:44 KLW7) BP: 138/99, Pulse: 86, Resp: 18, Pain: 0, O2 sat: 93 on (RA). (MonFeb 01, 2018 09:27 KM8) BP: 135/94, Pulse: 91, Resp: 18, Pain: 0, O2 sat: 98 on (RA). (MonFeb 01, 2018 10:27 SOW1) BP: 129/83, Pulse: 87, Resp: 18, Pain: 0, O2 sat: 94 on (RA). (MonFeb 01, 2018 11:27 SOW1) BP: 131/93, Pulse: 90, Resp: 16, Pain: 0, O2 sat: 94 on (RA). (MonFeb 01, 2018 12:09 SOW1) BP: 134/96, Pulse: 92, Resp: 16, Pain: 0, O2 sat: 96 on (RA). (MonFeb 01, 2018 13:06 SOW1)NURSING ASSESSMENT: A SEPSIS SCREENING TOOL (MonFeb 01, 2018 07:41 CJO)SEPSIS SCREENING TOOL: Patient has no infection that is suspected or identified, Patient's heart rate is above 90 bpm, This patient has been identified as NOT meeting the severe sepsis criteria as defined by the CMS guidelines.NURSING ASSESSMENT: CARDIOVASCULAR (MonFeb 01, 2018 07:48 KM8)CONSTITUTIONAL: History obtained from patient, Patient arrives ambulatory, Gait steady, Patient appears comfortable, Patient cooperative, alert. Oriented to person, place and time, Skin warm, Skin dry, Skin normal in color, Mucous membranes pink, moist. Patient complains of PT REPORTS CHEST PRESSURE, BURNING, SHORTNESS OF BREATH ONGOING FOR APPROX [address] HE CAME TO ED TODAY BECAUSE HE WAS TIRED OF BEING SHORT OF BREATH. PT ST HE HAS HIGH BP BUT DOES NOT TAKE MEDS FOR IT BECAUSE THEY DIDN'T WORK. PT REPORTS BURNIGN PAIN IS MID UPPER STERNAL AND IS RELIEVED BY EATING. PT DENIES N/V. PT IS TALKATIVE, RESPERS EASY AND COLOR IS GOOD.CARDIOVASCULAR: Cardiovascular assessment findings include heart rate, tachycardic.RESPIRATORY/PENNY ST: Breath sounds clear, Respiratory assessment findings include respiratory effort easy, Respirations regular, Conversing normally, Neck and chest exam findings include trachea midline, Chest expansion equal, Chest movement symmetrical.SAFETY: Side rails up, Cart/Stretcher in lowest position, Call light within reach, Hospital ID band on.NURSING ASSESSMENT: FALL RISK (MonFeb 01, 2018 07:51 KM8)[place] SCALE: Ambulatory aid: None/BR/WC/Nurse(0), Gait/transferring: Normal/BR/Immobile (0), IV/heparin lock: Yes (20), Mental status: Oriented to own ability (0), Total: 20, No identified risk for fall, Cart in low position and wheels locked, Cart rails up, Floor free of tripping/falling hazards, Call light and phone within patient's reach, Patient reminded to call for help.EVENTSATTENDING: DO Liang Timothy saw the patient at [facility] Feb 01, 2018 07:43. (MonFeb 01, 2018 07:43 MDTR)TRANSFER: Triage to Emergency Emergency Department - Pod 1 09. (MonFeb 01, 2018 07:37 KT3) Removed from Emergency Emergency Department - Pod 1 09. (MonFeb 01, 2018 13:16 TSD1)NURSING PROCEDURE: ADMISSION (MonFeb 01, 2018 13:15 TSD1)ADMISSION: Patient admitted to a critical care unit, room number 249, Report called to, HERNAN RN, Provided opportunity to answer questions, Bed assigned at 1207- ROOM READY AT 1303, Report called at 1315, Patient Admited at. 1315, Acuity level urgent, Transported via cart/stretcher, Accompanied by registered nurse, Transported with monitor, Transported with disposable blood pressure cuff, Transported with saline lock.BELONGINGS: Belongings and valuables with patient at time of admission include:, Belongings remain with patient.NURSING PROCEDURE: EKG CHART (MonFeb 01, 2018 07:47 GMR1)PATIENT IDENTIFIER: Patient's identity verified by patient stating name, Patient's identity verified by patient stating date, Patient's identity verified by hospital ID bracelet.EK lead EKG performed on the left chest, done by R1, first EKG, EKG performed at: 0741.FOLLOW-UP: After procedure, EKG for interpretation given to Dr. LIANG @[facility].NOTES: Patient tolerated procedure well.SAFETY: Side rails up, Cart/Stretcher in lowest position, Call light within reach, Hospital ID band on.NURSING PROCEDURE: IV (MonFeb 01, 2018 08:03 KM8)PATIENT IDENITIFIER: Patient's identity verified by patient stating name, Patient's identity verified by patient stating date.IV SITE 1: IV therapy indicated for medication administration, IV established, to the right forearm, using a 20 gauge catheter, in two attempts, IV site prepped with chloroprep, Saline lock established, Flushed with normal saline (mls): 3, Notes: UNABLE TO OBTAIN LABS.FOLLOW-UP SITE 1: After procedure, sterile transparent dressing applied, After procedure, no drainage at IV site, After procedure, no swelling at IV site, After procedure, no redness at IV site.NOTES: Procedure done by BRIAN GALAN.NURSING PROCEDURE: NURSE NOTESNURSES NOTES: Notes: PT RESTING IN CART, NAD NOTED, RESPERS E ASY. (MonFeb 01, 2018 08:43 KM8) Notes: PT RESTING IN CART, EYES CLOSED, NAD NOTED. (MonFeb 01, 2018 09:32 KM8) Notes: PT RESTING IN CART, NO NEEDS AT THIS TIME. (MonFeb 01, 2018 10:30 KM8) Notes: PT RESTING IN CART, NO NEEDS AT THIS TIME. ([facility] Feb 01, 2018 11:28 KM8) Notes: REPORT RECEIVED FROM OSMAN RIVERS. PT IS SITTING UPRIGHT ON CART. NO NEEDS EXPRESSED. NAD NOTED. ([facility] Feb 01, 2018 12:10 TSD1) Notes: DELAY IN ADMISSION D/T ROOM IS NOT READY. PREVIOUS PT NEEDS DISCHARGED AND THEN ROOM WILL NEED CLEANED. WILL CONTINUE TO MONITOR PT IN ED UNTIL ROOM IS READY. ([facility] Feb 01, 2018 12:33 TSD1)MEDICATION SERVICEAspirin Child Chewable: Order: Aspirin Child Chewable - Dose: 324 mg Route: orally Notes: Chew 4 tablets Ordered by: Cm Liang DO Entered by: Cm Liang DO [facility] Feb 01, 2018 07:59 Authenticated using password. Documented as given by: Mahogany Salas RN [facility] Feb 01, 2018 08:02 Patient, Medication, Dose, Route, Schedule verified prior to administration., Amount ( Dose ) given: 324MG, Site: Medication administered P.O., Correct patient, time, route, dose and medication confirmed prior to administration, Patient advised of actions and side-effects prior to administration, Allergies confirmed and medications reviewed prior to administration, Patient tolerated procedure well.Labetalol Hydrochloride: Order: Labetalol Hydrochloride - Dose: 20 mg Route: Slow IV over 2-3 minutes Ordered by: Cm Liang DO Entered by: Cm Liang DO [facility] Feb 01, 2018 08:11 Authenticated using password. Acknowledged by: OSMAN Salas [facility] Feb 01, 2018 08:12, Co-signed by: OSMAN Molina [facility] Feb 01, 2018 08:29 Documented as given by: Mahogany Salas RN [facility] Feb 01, 2018 08:30 Patient, Medication, Dose, Route, Schedule verified prior to administration., Amount ( Dose ) given: 20MG, IV SITE #1 IVP, initial medication, Slowly, Catheter placement confirmed via flush prior to administration, IV site without signs or symptoms of infiltration during medication administration, No swelling during administration, No drainage during administration, IV flushed after administration, Correct patient, time, route, dose and medication confirmed prior to administration, Patient advised of actions and side-effects prior to administration, Allergies confirmed and medications reviewed prior to administration, Patient tolerated procedure well.Labetalol Hydrochloride: BP: 148, / 90. (MonFeb 01, 2018 08:36 KM8)Nitroglycerin: Order: Nitroglycerin - Dose: 1 tab(s) Route: Sublingual Schedule: every 5 minutes up to 3 doses as needed Notes: hold for SBP < 100 mmHg, or relief of discomfort Ordered by: Cm Liang DO Entered by: Cm Liang DO [facility] Feb 01, 2018 07:59 Authenticated using password. Acknowledged by: OSMAN Salas [facility] Feb 01, 2018 08:05 Documented as given by: Mahogany Salas RN [facility] Feb 01, 2018 08:19 Patient, Medication, Dose, Route, Schedule verified prior to administration., Amount given: O.4MG X3, Site: Medication administered S.L., Correct patient, time, route, dose and medication confirmed prior to administration, Patient advised of actions and side-effects prior to administration, Allergies confirmed and medications reviewed prior to administration, Patient tolerated procedure well, 1ST NITRO AT 0803, 2ND AT 0809, THIRD AT 0815.Nitroglycerin: BP: 164, / 113, Pulse: 119, Resp: 18, Pain: 4-5, O2 sat: 97, on: RA. (MonFeb 01, 2018 08:08 KM8)Nitroglycerin: BP: 159, / 106, Pulse: 113, Resp: 18, Pain: 2-3, O2 sat: 94, on: RA. (MonFeb 01, 2018 08:14 KM8)Nitroglycerin: BP: 155, / 104, Pulse: 113, Resp: 18, Pain: 1, O2 sat: 93, on: RA. (MonFeb 01, 2018 08:20 KM8)ORDERSSTAT ECG: Ordered by: OSMAN Solis Chelsea J. Ordered for: DO Liang Timothy Status: Active. (MonFeb 01, 2018 07:43 CJO)Cont. mtr.VS=Card Mtr,LOC,POX(): Ordered by: OSMAN Salas Kateri Ordered for: DO Liang Timothy Status: Canceled by: OSMAN Salas Kateri - [facility] Feb 01, 2018 08:05. (MonFeb 01, 2018 07:48 KM8)EKG- Repeat in 6 hours: Ordered by: OSMAN Salas Kateri Ordered for: Liang, DO, Cm Status: Done by: OSMAN Salas Kateri - [facility] Feb 01, 2018 09:31. (MonFeb 01, 2018 07:48 KM8)EKG/Repeat in 3hrs: Ordered by: OSMAN Salas Kateri Ordered for: Liang, DO, Cm Status: Done by: OSMAN Salas Kateri - [facility] Feb 01, 2018 09:31. (MonFeb 01, 2018 07:48 KM8)B-TYPE NATRIURETIC PEPTIDE: Ordered by: Liang, DO, Cm Ordered for: Liang, DO, Cm Status: Active. (MonFeb 01, 2018 07:58 MDTR)BASIC METABOLIC PANEL: Ordered by: Liang, DO, Cm Ordered for: Liang, DO, Cm Status: Active. (MonFeb 01, 2018 07:58 MDTR)Cont. mtr.VS/Clinical Quality Manager/POX(1st on RA): Ordered by: Liang, DO, Cm Ordered for: Liang, DO, Cm Status: Done by: OSMAN Salas Kateri - [facility] Feb 01, 2018 08:05. (MonFeb 01, 2018 07:58 MDTR)D-DIMER: Ordered by: Azul, DO, Cm Ordered for: Liang, DO, Cm Status: Active. (MonFeb 01, 2018 07:58 MDTR)ER CHEST AND LEFT LATERAL: Ordered by: Liang, DO, Cm Ordered for: Liang, DO, Cm Status: Active. (MonFeb 01, 2018 07:58 MDTR)ER's CBC WITH DIFF: Ordered by: Liang, DO, Cm Ordered for: Liang, DO, Cm Status: Active. (MonFeb 01, 2018 07:58 MDTR)IV Saline Lock: Ordered by: Azul DO Cm Ordered for: Liang, DO, Cm Status: Done by: OSMAN Salas Kateri - [facility] Feb 01, 2018 08:05. (MonFeb 01, 2018 07:58 MDTR)MULTI-ORGAN PANEL: Ordered by: Liang, DO Cm Ordered for: Liang, DO, Cm Status: Active. (MonFeb 01, 2018 07:58 MDTR)TROPI (THIS IS 3 SETS): Ordered by: DO Liang Timothy Ordered for: Liang, DO, Cm Status: Active. (MonFeb 01, 2018 07:58 MDTR)ED CTA CHEST WOW: Ordered by: DO Azul Cm Ordered for: Liang, DO, Cm Status: Active. (MonFeb 01, 2018 09:24 MDTR)Discontinue Serial EKGs per v/o Dr. LIANG: Ordered by: OSMAN Salas Kateri Ordered for: Liang, DO, Cm Status: Done by: OSMAN Salas Kateri - MonFeb 01, 2018 09:32. (MonFeb 01, 2018 09:32 KM8)STAT ECG: Ordered by: OSMAN Salas Kateri Ordered for: Liang, DO, Cm Status: Active. (MonFeb 01, 2018 10:20 KM8)RESULTSLABORATORY: B-TYPE NATRIURETIC PEPTIDE MonFeb 01, 2018 08:16, *B-TYPE NATRIURETIC PEPTIDE 320.0 - H pg/mL, Range (5-100), [facility] CLINICAL CARDIOLOGY, REFERENCE FOR BNP INTERPRETATION IS:, BNP LEVEL: INTERPRETATION:, EQUAL OR LESS THAN 100 pg/mL NEGATIVE, GREATER THAN 100 pg/mL POSITIVE, GREATER THAN 200 pg/mL HIGH CORRELATION WITH, . LEFT HEART FAILURE., ADDITIONAL INTERPRETATIONS:, < 100 pg/mL - HIGHLY UNLIKELY THAT PATIENTS SYMPTOMS RESULT, FROM SYSTOLIC OR DIASTOLIC DYSFUNCTION., > 100 - 200 pg/mL - BNP >100 PG/ML IS CONSIDERED POSITIVE, AND INDICATIVE OF HEART FAILURE. LV, DYSFUNCTION WITH NO ACUTE CHF = 141 (+/- 31)., SEVERE RIGHT HEART FAILURE, PULM. HTN, OR, LARGE PULM. EMBOLUS MAY = 100 - 200 PG/ML, >200 pg/mL - ALMOST ALWAYS LEFT HEART FAILURE. AMI WITH CHF, MAY HAVE ELEVATED LEVELS; POSITIVE BNP SHOULD, NOT BE VIEWED EXCLUDING A DIAGNOSIS OF AMI., > 480 pg/mL - PATIENTS WHO PRESENT WITH DYSPNEA AND BNP, LEVEL GREATER OR EQUAL TO 480 HAVE A NEARLY 30, FOLD INCREASE RISK FOR A CARDIAC EVENT IN THE, NEXT 6 MONTHS. (MonFeb 01, 2018 09:21 MDTR)RADIOLOGY: EMERG Chest & LEFT Lateral [id number]& LEFT Lateral [id number] [facility] Feb 01, 2018 08:41, IMAGE . (MonFeb 01, 2018 09:21 MDTR) EMERG Chest & LEFT Lateral [id number] [facility] Feb 01, 2018 08:41, See comment below EXAM: EMERG Chest & LEFT Lateral [id number] [facility] Department of Radiology ANDREWS VALENTE VISIT: [id number] : 1960 SEX: M DEPT NO: [id number] PATIENT LOCATION: ER1 EXAM: EMERG Chest & LEFT Lateral [id number] 02/01/2018 08:41:00 SIGNS AND SYMPTOMS: PERTINENT SYMPTOMS: PERTINENT SYMPTOMS: dyspnea, chest pain Requesting Provider: CM LIANG - COMPARISON: 08/31/2005 FINDINGS: The cardiac and mediastinal contours are grossly unremarkable. There is subtle left perihilar opacity. The right hilum appears slightly prominent in terms of size and density when compared with the prior chest x-ray. No pleural effusion or pneumothorax is identified. IMPRESSION: 1. Subtle right hilar prominence. Adenopathy/mass cannot be excluded. Follow-up CT imaging should be considered for further evaluation. 2. Subtle left perihilar opacity may represent atelectasis. Pneumonia should be clinically excluded. Performed By: Carlita Montalvo 02/01/2018 08:41:00 Signed By: ARTUR GANDARA MD 02/01/2018 08:45:00 . (MonFeb 01, 2018 09:21 MDTR)LABORATORY: ERCAR 1ST MonFeb 01, 2018 08:16, *TROPONIN I. 0.04 - H ng/mL, Range (<0.03), LESS THAN 0.03 ng/mL: Normal ( 99th Percentile) , 0.03 - 0.04 ng/mL: Indeterminate, GREATER THAN OR EQUAL TO 0.04 ng/mL : Consider Acute, Myocardial Infarction. (MonFeb 01, 2018 09:21 MDTR) BASIC METABOLIC PANEL MonFeb 01, 2018 08:16, *GLUCOSE 346 - H mg/dL, Range (74-118), ======, NOTE , IF THIS IS A FASTING SPECIMEN THE FOLLOWING RANGES APPLY:, NORMAL 70 TO 99 mg/dL, PREDIABETIC 100 TO 125 mg/dL, DIABETIC >= 126 mg/dL, ======, BLOOD UREA NITROGEN 19 mg/dL, Range (8-20), *CREATININE 1.24 - H mg/dL, Range (0.70-1.20), GFR (MDRD) 60 , TO ESTIMATE GFR FOR AMERICANS MULTIPLY THE RESULT BY, 1.21., GFR LESS THAN 60 mL/min/1.73m2: SUGGESTIVE OF CHRONIC KIDNEY, DISEASE., GFR LESS THAN 15 mL/min/1.73m2: SUGGESTIVE OF END STAGE, RENAL DISEASE., BUN/CREATININE RATIO 15.3 , Range (6-20), *CALCIUM 8.7 - L mg/dL, Range (8.9-10.3), *SODIUM 135 - L MMOL/L, Range (136-144), POTASSIUM 4.3 MMOL/L, Range (3.6-5.1), CHLORIDE 101 mmol/L, Range (101-111), CARBON DIOXIDE 26 MMOL/L, Range (22-32), ANION GAP 12.3 , Range (8-22), OSMOLALITY(CALCULATED) 286 mOSM/kg, Range (275-305). (MonFeb 01, 2018 09:21 MDTR) COMPREHENSIVE METABOLIC PANEL MonFeb 01, 2018 08:16, *GLUCOSE 346 - H mg/dL, Range (74-118), ======, NOTE , IF THIS IS A FASTING SPECIMEN THE FOLLOWING RANGES APPLY:, NORMAL 70 TO 99 mg/dL, PREDIABETIC 100 TO 125 mg/dL, DIABETIC >= 126 mg/dL, ======, BLOOD UREA NITROGEN 19 mg/dL, Range (8-20), *CREATININE 1.24 - H mg/dL, Range (0.70-1.20), GFR (MDRD) 60 , TO ESTIMATE GFR FOR AMERICANS MULTIPLY THE RESULT BY, 1.21., GFR LESS THAN 60 mL/min/1.73m2: SUGGESTIVE OF CHRONIC KIDNEY, DISEASE., GFR LESS THAN 15 mL/min/1.73m2: SUGGESTIVE OF END STAGE, RENAL DISEASE., BUN/CREATININE RATIO 15.3 , Range (6-20), TOTAL PROTEIN 7.1 G/dL, Range (6.1-7.9), ALBUMIN 3.8 g/dL, Range (3.5-4.8), GLOBULIN 3.3 G/dL, A/G RATIO 1.2 , Range (0.9-2.0), *CALCIUM 8.7 - L mg/dL, Range (8.9-10.3), ALKALINE PHOSPHATASE 86 IU/L, Range (38-126), AST/SGOT 23 IU/L, Range (15-41), ALT/SGPT 33 IU/L, Range (17-63), SGOT/SGPT RATIO 0.7 , Range (0-2), BILIRUBIN, TOTAL 0.8 mg/dL, Range (0.4-2.0), *SODIUM 135 - L MMOL/L, Range (136-144), POTASSIUM 4.3 MMOL/L, Range (3.6-5.1), CHLORIDE 101 mmol/L, Range (101-111), CARBON DIOXIDE 26 MMOL/L, Range (22-32), ANION GAP 12.3 , Range (8-22), OSMOLALITY(CALCULATED) 286 mOSM/kg, Range (275-305). ([facility] Feb 01, 2018 09:21 MDTR) BASIC METABOLIC PANEL [facility] Feb 01, 2018 08:16, *GLUCOSE 346 - H mg/dL, Range (74-118), ======, NOTE , IF THIS IS A FASTING SPECIMEN THE FOLLOWING RANGES APPLY:, NORMAL 70 TO 99 mg/dL, PREDIABETIC 100 TO 125 mg/dL, DIABETIC >= 126 mg/dL, ======, BLOOD UREA NITROGEN 19 mg/dL, Range (8-20), *CREATININE 1.24 - H mg/dL, Range (0.70-1.20), GFR (MDRD) 60 , TO ESTIMATE GFR FOR AMERICANS MULTIPLY THE RESULT BY, 1.21., GFR LESS THAN 60 mL/min/1.73m2: SUGGESTIVE OF CHRONIC KIDNEY, DISEASE., GFR LESS THAN 15 mL/min/1.73m2: SUGGESTIVE OF END STAGE, RENAL DISEASE., BUN/CREATININE RATIO 15.3 , Range (6-20), *CALCIUM 8.7 - L mg/dL, Range (8.9-10.3), *SODIUM 135 - L MMOL/L, Range (136-144), POTASSIUM 4.3 MMOL/L, Range (3.6-5.1), CHLORIDE 101 mmol/L, Range (101-111), CARBON DIOXIDE 26 MMOL/L, Range (22-32), ANION GAP 12.3 , Range (8-22), OSMOLALITY(CALCULATED) 286 mOSM/kg, Range (275-305). (MonFeb 01, 2018 09:21 MDTR) COMPREHENSIVE METABOLIC PANEL MonFeb 01, 2018 08:16, *GLUCOSE 346 - H mg/dL, Range (74-118), ======, NOTE , IF THIS IS A FASTING SPECIMEN THE FOLLOWING RANGES APPLY:, NORMAL 70 TO 99 mg/dL, PREDIABETIC 100 TO 125 mg/dL, DIABETIC >= 126 mg/dL, ======, BLOOD UREA NITROGEN 19 mg/dL, Range (8-20), *CREATININE 1.24 - H mg/dL, Range (0.70-1.20), GFR (MDRD) 60 , TO ESTIMATE GFR FOR AMERICANS MULTIPLY THE RESULT BY, 1.21., GFR LESS THAN 60 mL/min/1.73m2: SUGGESTIVE OF CHRONIC KIDNEY, DISEASE., GFR LESS THAN 15 mL/min/1.73m2: SUGGESTIVE OF END STAGE, RENAL DISEASE., BUN/CREATININE RATIO 15.3 , Range (6-20), TOTAL PROTEIN 7.1 G/dL, Range (6.1-7.9), ALBUMIN 3.8 g/dL, Range (3.5-4.8), GLOBULIN 3.3 G/dL, A/G RATIO 1.2 , Range (0.9-2.0), *CALCIUM 8.7 - L mg/dL, Range (8.9-10.3), ALKALINE PHOSPHATASE 86 IU/L, Range (38-126), AST/SGOT 23 IU/L, Range (15-41), ALT/SGPT 33 IU/L, Range (17-63), SGOT/SGPT RATIO 0.7 , Range (0-2), BILIRUBIN, TOTAL 0.8 mg/dL, Range (0.4-2.0), *SODIUM 135 - L MMOL/L, Range (136-144), POTASSIUM 4.3 MMOL/L, Range (3.6-5.1), CHLORIDE 101 mmol/L, Range (101-111), CARBON DIOXIDE 26 MMOL/L, Range (22-32), ANION GAP 12.3 , Range (8-22), OSMOLALITY(CALCULATED) 286 mOSM/kg, Range (275-305). ([facility] Feb 01, 2018 09:21 MDTR) BASIC METABOLIC PANEL MonFeb 01, 2018 08:16, *GLUCOSE 346 - H mg/dL, Range (74-118), ======, NOTE , IF THIS IS A FASTING SPECIMEN THE FOLLOWING RANGES APPLY:, NORMAL 70 TO 99 mg/dL, PREDIABETIC 100 TO 125 mg/dL, DIABETIC >= 126 mg/dL, ======, BLOOD UREA NITROGEN 19 mg/dL, Range (8-20), *CREATININE 1.24 - H mg/dL, Range (0.70-1.20), GFR (MDRD) 60 , TO ESTIMATE GFR FOR AMERICANS MULTIPLY THE RESULT BY, 1.21., GFR LESS THAN 60 mL/min/1.73m2: SUGGESTIVE OF CHRONIC KIDNEY, DISEASE., GFR LESS THAN 15 mL/min/1.73m2: SUGGESTIVE OF END STAGE, RENAL DISEASE., BUN/CREATININE RATIO 15.3 , Range (6-20), *CALCIUM 8.7 - L mg/dL, Range (8.9-10.3), *SODIUM 135 - L MMOL/L, Range (136-144), POTASSIUM 4.3 MMOL/L, Range (3.6-5.1), CHLORIDE 101 mmol/L, Range (101-111), CARBON DIOXIDE 26 MMOL/L, Range (22-32), ANION GAP 12.3 , Range (8-22), OSMOLALITY(CALCULATED) 286 mOSM/kg, Range (275-305). ([facility] Feb 01, 2018 09:21 MDTR) COMPREHENSIVE METABOLIC PANEL [facility] Feb 01, 2018 08:16, *GLUCOSE 346 - H mg/dL, Range (74-118), ======, NOTE , IF THIS IS A FASTING SPECIMEN THE FOLLOWING RANGES APPLY:, NORMAL 70 TO 99 mg/dL, PREDIABETIC 100 TO 125 mg/dL, DIABETIC >= 126 mg/dL, ======, BLOOD UREA NITROGEN 19 mg/dL, Range (8-20), *CREATININE 1.24 - H mg/dL, Range (0.70-1.20), GFR (MDRD) 60 , TO ESTIMATE GFR FOR AMERICANS MULTIPLY THE RESULT BY, 1.21., GFR LESS THAN 60 mL/min/1.73m2: SUGGESTIVE OF CHRONIC KIDNEY, DISEASE., GFR LESS THAN 15 mL/min/1.73m2: SUGGESTIVE OF END STAGE, RENAL DISEASE., BUN/CREATININE RATIO 15.3 , Range (6-20), TOTAL PROTEIN 7.1 G/dL, Range (6.1-7.9), ALBUMIN 3.8 g/dL, Range (3.5-4.8), GLOBULIN 3.3 G/dL, A/G RATIO 1.2 , Range (0.9-2.0), *CALCIUM 8.7 - L mg/dL, Range (8.9-10.3), *SODIUM 135 - L MMOL/L, Range (136-144), POTASSIUM 4.3 MMOL/L, Range (3.6-5.1), CHLORIDE 101 mmol/L, Range (101-111), CARBON DIOXIDE 26 MMOL/L, Range (22-32), ANION GAP 12.3 , Range (8-22), OSMOLALITY(CALCULATED) 286 mOSM/kg, Range (275-305). (MonFeb 01, 2018 09:21 MDTR) D-DIMER TEST MonFeb 01, 2018 08:16, *D-DIMER TEST 2.22 - H MG/L FEU, Range (<0.5), THROMBOEMBOLIC EVENTS ARE HIGHLY UNLIKELY IN PATIENTS UNDER, 50 YEARS IF D-DIMER RESULTS ARE BELOW 0.50 mg/L FEU IN, COMBINATION WITH A NON-HIGH CLINICAL PRETEST PROBABILITY, SCORE., USE AGE ADJUSTED D-DIMER THRESHOLDS FOR PATIENTS OLDER THAN, 50 YEARS TO DETERMINE IF IMAGING IS WARRANTED TO RULE OUT, PULMONARY EMBOLISM. AT [facility], THE AGE ADJUSTED THRESHOLD IS, CALCULATED AGE X 0.01 mg/L FEU., FALSE NEGATIVE RESULTS ARE POSSIBLE IN PATIENTS ON, ANTICOAGULANT THERAPY. ([facility] Feb 01, 2018 09:21 MDTR) ER CBC WITH DIFFERENTIAL [facility] Feb 01, 2018 08:16, WHITE BLOOD COUNT 6.3 TH/MM3, Range (4.5-11.0), *RED BLOOD COUNT 6.09 - H MIL/MM3, Range (4.50-5.90), HEMOGLOBIN 16.4 GM/DL, Range (13.5-17.5), HEMATOCRIT 51.4 %, Range (41.0-53.0), MEAN CELL VOLUME 84.4 FL, Range (80.0-100.0), MEAN CELL HEMOGLOBIN 26.9 PG, Range (26.0-34.0), MEAN CORPUSCULAR HGB CONC 31.9 GM/DL, Range (31.0-37.0), *RED CELL DISTRIBUTION WID 14.6 - H UNITS, Range (11.5-14.5), PLATELET 175 TH/MM3, Range (140-440), MEAN PLATELET VOLUME 8.4 UM3, Range (7.4-10.4), *NE% 81.1 - H %, Range (36-71), ABSOLUTE NEUTROPHIL COUNT 5.1 10, Range (1.8-7.0), *LYMPH% 12.1 - L %, Range (24-44), *ABSOLUTE LYMPHOCYTE COUNT 0.8 - L 10, Range (1.5-3.0), MONO% 5.8 %, Range (1-7), ABSOLUTE MONOCYTE COUNT 0.4 10, Range (0.1-1.0), *EO% 0.3 - L %, Range (1-4), *ABSOLUTE EOSINOPHIL COUNT 0 - L 10, Range (0.05-0.25), BA% 0.7 %, Range (0-1), *ABSOLUTE BASOPHIL COUNT 0 - L 10, Range (0.02-0.05), WHITE BLOOD COUNT 6.3 TH/MM3, Range (4.5-11.0), *RED BLOOD COUNT 6.09 - H MIL/MM3, Range (4.50-5.90), HEMOGLOBIN 16.4 GM/DL, Range (13.5-17.5), HEMATOCRIT 51.4 %, Range (41.0-53.0), MEAN CELL VOLUME 84.4 FL, Range (80.0-100.0), MEAN CELL HEMOGLOBIN 26.9 PG, Range (26.0-34.0), MEAN CORPUSCULAR HGB CONC 31.9 GM/DL, Range (31.0-37.0), *RED CELL DISTRIBUTION WID 14.6 - H UNITS, Range (11.5-14.5), PLATELET 175 TH/MM3, Range (140-440), MEAN PLATELET VOLUME 8.4 UM3, Range (7.4-10.4), *NE% 81.1 - H %, Range (36-71), ABSOLUTE NEUTROPHIL COUNT 5.1 10, Range (1.8-7.0), *LYMPH% 12.1 - L %, Range (24-44), *ABSOLUTE LYMPHOCYTE COUNT 0.8 - L 10, Range (1.5-3.0), MONO% 5.8 %, Range (1-7), ABSOLUTE MONOCYTE COUNT 0.4 10, Range (0.1-1.0), *EO% 0.3 - L %, Range (1-4), *ABSOLUTE EOSINOPHIL COUNT 0 - L 10, Range (0.05-0.25), BA% 0.7 %, Range (0-1), *ABSOLUTE BASOPHIL COUNT 0 - L 10, Range (0.02-0.05). ([facility] Feb 01, 2018 09:21 MDTR)RADIOLOGY: ED CTA Chest WOW [id number] [facility] Feb 01, 2018 09:43, IMAGE , See comment below EXAM: ED CTA Chest WOW [id number] [facility] Department of Radiology ANDREWS VALENTE VISIT: [id number] : 1960 SEX: M DEPT NO: [id number] PATIENT LOCATION: ER1 EXAM: ED CTA Chest WOW [id number] 02/01/2018 09:43:00 SIGNS AND SYMPTOMS: PERTINENT SYMPTOMS: PERTINENT SYMPTOMS: chest pain, elevated d-dimer, abnormal CXR Requesting Provider: CM LIANG - CLINICAL INDICATION: Chest pain elevated d-dimer abnormal chest x-ray CTA Chest TECHNIQUE: CTA of the chest was done with IV contrast administered. Thin axial slices were obtained in 3 mm intervals through the chest. Sagittal, coronal, MIP and 3-D reconstructed images were obtained. All CT scans at this facility use dose modulation, iterative reconstruction , and weight based dosing when appropriate to reduce radiation dose to as low as reasonably achievable. COMPARISON: None FINDINGS: Good visualization is seen of the aorta and pulmonary arteries are noted. The aorta appears normal. The main pulmonary artery and segmental branches of the pulmonary artery are seen and there is no evidence of intraluminal thrombus noted. The lung parenchyma is clear. No infiltrate is seen. No pleural effusion is seen. The bony rib cages are normal. Bilateral pleural effusion is seen. Intra-abdominal structures are normal. IMPRESSION: No evidence of intraluminal thrombus is seen. Bilateral pleural effusion. Performed By: Teressa Flor 02/01/2018 09:43:00 Signed By: PHOEBE TUCKER MD 02/01/2018 10:02:00 . (MonFeb 01, 2018 10:48 MDTR)LABORATORY: ERCAR 3HR [facility] Feb 01, 2018 11:10, *TROPONIN I. 0.04 - H ng/mL, Range (<0.03), LESS THAN 0.03 ng/mL: Normal ( 99th Percentile) , 0.03 - 0.04 ng/mL: Indeterminate, GREATER THAN OR EQUAL TO 0.04 ng/mL : Consider Acute, Myocardial Infarction. (MonFeb 01, 2018 12:04 MDTR)EKG: EKG Result MonFeb 01, 2018 07:41, TestType EKG STAT , Ventricular Rate 123 BPM, Atrial Rate 123 BPM, P-R Interval 140 ms, QRS Duration 154 ms, Q-T Interval 382 ms, QTC Calculation(Bezet) 546 ms, P-Gerber 35 degrees, R-Gerber -42 degrees, T-Gerber 104 degrees, Interpretation See comment below , Sinus tachycardia, atrial enlargement. axis deviation. bundle branch block. Abnormal ECG. (MonFeb 01, 2018 09:21 MDTR)DIAGNOSIS (MonFeb 01, 2018 11:04 MDTR)FINAL: PRIMARY: Chest pain, ADDITIONAL: Elevated troponin, Hyperglycemia, Left bundle branch block, Uncontrolled Hypertension.DISPOSITIONPAT IENT: Disposition: For Admitted ER Patients Only, Condition: SERIOUS. (MonFeb 01, 2018 11:26 MDTR) Patient left the department. (MonFeb 01, 2018 13:16 TSD1)PRESCRIPTION No recorded prescriptionsADMINDIGITAL SIGNATURE: DO Liang Timothy. (MonFeb 01, 2018 14:26 MDTR) OSMAN Foy Tiffiny S. (MonFeb 01, 2018 23:23 TSD1) Diane Hu R.N.. (MonFeb 06, 2018 13:06 KT3) MIRELA Joe Shawn O. (MonFeb 08, 2018 11:51 SOW1) ANGELIA Tse Kathy L. ([facility] Feb 17, 2018 12:07 KLW7) OSMNA Molina Carie L. (MonFebruary 27, 2018 15:47 CLL)Landry: CJO=OSMAN Solis Chelsea J. CLL=OSMAN Molina Carie L. GMR1=MIRELA Almanzar Garret M. KLW7=ANGELIA Tse Kathy L. KM8=OSMAN Salas Kateri KT3=Diane Hu R.N. MDTR=DO Liang Timothy SOW1=MIRELA Joe Shawn O. TSD1=OSMAN Foy Tiffiny S. Normal [facility] KRYSTLEAR 1STon 02-01-2018 Troponin I.cardiac mass conc 0.04 ng/mL High <0.03 [facility] Comment on above: Order Comment: Speci men to be collected later? [facility]COM[facility]: 1IF THIS IS A STEMI PATIENT, CALL THE LAB AND LET THEM KNOW!1Specimen to be collected later? 1 Result Comment: LESS THAN 0.03 ng/mL: Normal ( 99th Percentile) 0.03 - 0.04 ng/mL: Indeterminate GREATER THAN OR EQUAL TO 0.04 ng/mL : Consider Acute Myocardial Infarction Performed By: #### M JOSESITO, ERCAR 1ST ####[id number] [place] [address] 3HRon 02-01-2018 Troponin I.cardiac mass conc 0.04 ng/mL High <0.03 [facility] Comment on above: Result Comment: LESS THAN 0.03 ng/mL: Normal ( 99th Percentile) 0.03 - 0.04 ng/mL: Indeterminate GREATER THAN OR EQUAL TO 0.04 ng/mL : Consider Acute Myocardial Infarction Performed By: #### E RCAR 3HR ####[facility] [id number] [place] [address] ERCAR 8HRon 02-01-2018 Troponin I.cardiac mass conc 0.04 ng/mL High <0.03 [facility] Comment on above: Result Comment: LESS THAN 0.03 ng/mL: Normal ( 99th Percentile) 0.03 - 0.04 ng/mL: Indeterminate GREATER THAN OR EQUAL TO 0.04 ng/mL : Consider Acute Myocardial Infarction Performed By: #### E RCAR 8HR ####[facility] [id number] [place] [address] GLUCOMETER-FINGERSTICKon Glucose mass conc 256 mg/dL [address] Comment on above: Result Comment: ACCE PT RESULTS Performed By: #### E NERI, DDT ####[facility] [id number] [place] [address] Glucose mass conc 217 mg/dL [address] Comment on above: Result Comment: ACCE PT RESULTS Performed By: #### E JENNIFERD, DDT ####[facility] [id number] [place] [address] Vital Signs Date Time Vital Sign Value Performing Clinician Faci gerardoy 02-20-2025 07:20-0400 Body height 177.8 cm Skyler Vergara MD Work Phone: [facility] 02-20-2025 07:20-0400 Body mass index (BMI) [Ratio] 29.41 kg/m2 Skyler Vergara MD Work Phone: [facility] 02-20-2025 07:20-0400 Body temperature 97.7 [degF] Skyler Vergara MD Work Phone: [facility] 02-20-2025 07:20-0400 Body weight 92.99 kg Skyler Vergara MD Work Phone: [facility] 02-20-2025 07:20-0400 Diastolic blood pressure 83 mm[Hg] Skyler Vergara MD Work Phone: [facility] 02-20-2025 07:20-0400 Heart rate 73 /min Skyler Vergara MD Work Phone: [facility] 02-20-2025 07:20-0400 Respiratory rate 16 /min Skyler Vergara MD Work Phone: [facility] 02-20-2025 07:20-0400 SaO2% (BldA) [Mass fraction] 99 % Skyler Vergara MD Work Phone: [facility] 02-20-2025 07:20-0400 Systolic blood pressure 147 mm[Hg] Skyler Vergara MD Work Phone: [facility] 09-28-2023 11:23-0500 Body temperature 98.29 [degF] Tawanda Becerra MD Work Phone: [facility] 09-28-2023 11:23-0500 Diastolic blood pressure 91 mm[Hg] Tawanda Becerra MD Work Phone: [facility] 09-28-2023 11:23-0500 Heart rate 73 /min Tawanda Becerra MD Work Phone: [facility] 09-28-2023 11:23-0500 Respiratory rate 16 /min Tawanda Becerra MD Work Phone: [facility] 09-28-2023 11:23-0500 Systolic blood pressure 157 mm[Hg] Tawanda Becerra MD Work Phone: [facility] 09-28-2023 08:19-0500 SaO2% (BldA) [Mass fraction] 96 % Tawanda Becerra MD Work Phone: [facility] 09-28-2023 00:11-0500 Body mass index (BMI) [Ratio] 31.82 kg/m2 Tawanda Becerra MD Work Phone: [facility] 09-28-2023 00:11-0500 Body weight 100.6 kg Tawanda Becerra MD Work Phone: [facility] [employer] 09-27-2023 01:03-0500 Body height 177.8 cm Tawanda Becerra MD Work Phone: [facility] 03-16-2022 12:37-0400 Diastolic blood pressure 102 mm[Hg] Lisa Goodwin FORGING MACHINE OPERATOR-PC TECHNICIAN Work Phone: [facility] 03-16-2022 12:37-0400 Systolic blood pressure 165 mm[Hg] Lisa Goodwin FORGING MACHINE OPERATOR-PC TECHNICIAN Work Phone: [facility] 03-16-2022 12:10-0400 Body temperature 97.11 [degF] Lisa Goodwin FORGING MACHINE OPERATOR-PC TECHNICIAN Work Phone: [facility] 03-16-2022 12:10-0400 Heart rate 96 /min Lisa Goodwin FORGING MACHINE OPERATOR-PC TECHNICIAN Work Phone: [facility] 03-16-2022 12:10-0400 Respiratory rate 18 /min Lisa Goodwin FORGING MACHINE OPERATOR-PC TECHNICIAN Work Phone: [facility] 03-16-2022 12:10-0400 SaO2% (BldA) [Mass fraction] 98 % Lisa Goodwin FORGING MACHINE OPERATOR-PC TECHNICIAN Work Phone: [facility] Encounters Encounter Date Encounter Type Care Provider Facility Start: 02-20-2025 End: 02-20-2025 Emergency department patient visit KAILEY NIEVES [facility] Comment on above: Laceration of toe wi thout foreign body present or damage to nail, unspecified laterality, unspecified toe, initial encounter (Primary Dx); Contusion of knee, unspecified laterality, initial encounter Start: 06-15-2024 Emergency department patient visit GENTRY BARRIOS [facility] Start: 06-15-2024 End: 06-16-2024 Emergency department patient visit KAILEY NIEVES [facility] Start: 09-26-2023 End: 09-28-2023 Evaluation and management of inpatient Tawanda Becerra MD Work Phone: [facility] Comment on above: Acute chest pain (Pr imary Dx); NSTEMI (non-ST elevated myocardial infarction) ([facility]/HCC); Unstable angina ([facility]/HCC); Chronic systolic heart failure ([facility]/HCC) Start: 03-16-2022 End: 03-16-2022 Office outpatient visit 15 minutes Lisa Goodwin FORGING MACHINE OPERATOR-PC TECHNICIAN Work Phone: [facility] Comment on above: Viral syndrome (Prim neha Dx); Acute upper respiratory infection, unspecified Start: 02-16-2018 Patient encounter SE ADLER Fa cility:. Start: 02-05-2018 Patient encounter MARY JIMENEZ Fac ility:. Start: 02-01-2018 End: 02-03-2018 Evaluation and management of inpatient MARY JIMENEZ Facility:. Procedures Date Procedure Procedure Detail Performing Clinician Start: 02-20-2025 Radiologic examinati on knee 1/2 views Skyler Vergara MD Work Phone: Start: 02-20-2025 Simple repair scalp/neck/ax/genit/trunk 2.5cm/< Skyler Vergara MD Work Phone: Start: 09-28-2023 Gluc bld gluc mntr d ev cleared fda spec home use Emilia A Karina DO Work Phone: Start: 09-28-2023 Gluc bld gluc mntr d ev cleared fda spec home use Emilia A Karina DO Work Phone: Start: 09-28-2023 Ecg routine ecg w/le ast 12 lds trcg only w/o i&r Kaylene Porter FORGING MACHINE OPERATOR-PC TECHNICIAN Work Phone: Start: 09-28-2023 Basic metabolic pane l calcium total Kaylenedante Porter FORGING MACHINE OPERATOR-PC TECHNICIAN Work Phone: Start: 09-28-2023 Lipid 1996 panel - S artur or Plasma Tawanda Becerra MD Work Phone: Start: 09-27-2023 Heparin assay Emilia Fuentess DO Work Phone: Start: 09-27-2023 Ecg routine ecg w/le ast 12 lds trcg only w/o i&r Kaylenedante Maravillaomon FORGING MACHINE OPERATOR-PC TECHNICIAN Work Phone: Start: 09-27-2023 Cardiac catheterizat ion study Kaylene Marie Anselmo FORGING MACHINE OPERATOR-PC TECHNICIAN Work Phone: Start: 09-27-2023 Percutaneous coronar y intervention Kaylene N Anselmo FORGING MACHINE OPERATOR-PC TECHNICIAN Work Phone: Start: 09-27-2023 Echo tthrc r-t 2d w/ wom-mode compl spec&colr d Kaylene Maravillaomon FORGING MACHINE OPERATOR-PC TECHNICIAN Work Phone: Start: 09-27-2023 Heparin assay Pardeep Stearns MD Work Phone: Start: 09-27-2023 Ecg routine ecg w/le ast 12 lds trcg only w/o i&r Kaylene Maravillaomon FORGING MACHINE OPERATOR-PC TECHNICIAN Work Phone: Start: 09-27-2023 End: 09-27-2023 Comprehensive metabolic panel Pardeep Stearns MD Work Phone: Start: 09-27-2023 Lipid panel Kaylene jordan FORGING MACHINE OPERATOR-PC TECHNICIAN Work Phone: Start: 09-26-2023 End: 09-26-2023 Blood count complete automated Tawanda Becerra MD Work Phone: Start: 09-26-2023 Radiologic exam ches t single view Tawanda Becerra MD Work Phone: Start: 09-26-2023 Basic metabolic pane l calcium total Tawanda Becerra MD Work Phone: Start: 09-26-2023 ER TROPONIN SERIES Lg Becerra MD Work Phone: Start: 09-26-2023 Urnls dip stick/tabl et reagent auto microscopy Tawanda Becerra MD Work Phone: Start: 09-26-2023 Ecg routine ecg w/le ast 12 lds w/i&r Oc A Bare DO Work Phone: Start: 03-16-2022 POC COVID-FLU BEATRICE Goodwin FORGING MACHINE OPERATOR-PC TECHNICIAN Work Phone: Start: 02-02-2018 Lipid 1996 panel - S artur or Plasma Lisa Goodwin FORGING MACHINE OPERATOR-PC TECHNICIAN Work Phone: Plan of Treatment Date Care Activity Detail Author Start: 02-20-2035 DTaP/Tdap/Td Vaccine s (3 - Td or Tdap) DTaP/Tdap/Td Vaccines (3 - Td or Tdap) [facility] Start: 07-30-2029 DTaP/Tdap/Td Vaccine s (2 - Td or Tdap) DTaP/Tdap/Td Vaccines (2 - Td or Tdap) [facility] Start: 06-23-2025 Influenza vaccination Influenz a Vaccine (Season Ended) [facility] Start: 09-28-2024 Lipid panel Lipid Panel [facility] Start: 06-23-2024 COVID-19 Vaccine ( season) COVID-19 Vaccine ( season) [facility] Start: 03-28-2024 Hemoglobin A1c measurement [facility] Start: 10-13-2023 End: 10-13-2023 Clinical Support 10/13/2023 11:00 AM EST Clinical Support [facility] [address] [place] [address] Nurse, Heart Failure [facility] Start: 10-12-2023 End: 10-12-2023 Patient encounter procedure 10/12/2023 9:15 AM EST Office Visit [facility] [address] [place] [address] Kaylene Porter, FORGING MACHINE OPERATOR-PC TECHNICIAN [address] [place] [address] [facility] Start: 06-23-2023 Influenza vaccination Influenza Vacc ine (#1) [facility] Start: 06-23-2022 Influenza vaccination Influenz a Vaccine (Season Ended) [facility] Start: 2021 Respiratory Syncytia l Virus (RSV) Immunization Age 60+ Years (1 - 1-dose 60+ series) Respiratory Syncytial Virus (RSV) Immunization Age 60+ Years (1 - 1-dose 60+ series) [facility] Start: 2021 RSV Immunization or Age 60+ Years (1 - Risk 60-74 years 1-dose series) RSV Immunization or Age 60+ Years (1 - Risk 60-74 years 1-dose series) [facility] Start: 02-02-2019 Lipid panel Lipid Panel [facility] Start: 08-04-2018 Hemoglobin A1c measurement Diabetes: Hemoglobin A1C [facility] Start: 2011 Zoster Vaccines (1 of 2) Zoster Vacc rossy (1 of 2) [facility] Start: 1980 Pneumococcal Vaccine : 50+ Years (1 of 2 - PCV) Pneumococcal Vaccine: 50+ Years (1 of 2 - PCV) [facility] Start: 1980 Urine screening for protein Diabetes: Urine Protein Screening [facility] Start: 1979 Annual PHQ-2/9 Screening Annual PHQ- 2/9 Screening [facility] Start: 1973 Annual PHQ-2/9 Screening Annual PHQ- 2/9 Screening [facility] Start: 1971 Diabetic foot examination Diabetes: Foot Exam [facility] Start: 1971 Glaucoma screening Diabetes: R etinopathy Screening [facility] Start: 1971 Ophthalmic examinati on and evaluation Diabetes: Retinopathy Screening [facility] Start: 1971 Preventive dental service Diabetes: Dental Exam [facility] Start: 1967 Pneumococcal Vaccine : Pediatrics (0 to 5 Years) and At-Risk Patients (6 to 64 Years) (1 of 2 - PPSV23) Pneumococcal Vaccine: Pediatrics (0 to 5 Years) and At-Risk Patients (6 to 64 Years) (1 of 2 - PPSV23) [facility] Start: 1967 Pneumococcal Vaccine : Pediatrics and At-Risk Patients to 64 Years (1 - PCV) Pneumococcal Vaccine: Pediatrics and At-Risk Patients to 64 Years (1 - PCV) [facility] Start: 1966 COVID-19 Vaccine (1) COVID-19 Vaccin e (1) [facility] Start: 1961 COVID-19 Vaccine (#1) COVID-19 Vacci ne (#1) [facility] Start: 1961 Hepatitis C screening Hepatitis C Sc reening [facility] Start: 1961 HIV screening HIV Screening [facility] Start: 1961 Screening for malign ant neoplasm of colon [facility] ECG 12 lead ECG 12 lead ECG STAT 09/26/2023 6:45 PM [facility] Work Phone: Electrocardiogram, 12-lead Electrocardiogram, 12-lead ECG Routine 09/27/2023 9:20 AM [facility] Work Phone: Electrocardiogram, 12-lead Electrocardiogram, 12-lead ECG Routine 09/28/2023 6:00 AM EST [facility] Electrocardiogram, 12-lead Electrocardiogram, 12-lead ECG Routine 09/27/2023 1:39 PM [facility] Immunizations Immunization Date Immunization Notes Care Provider Fa cility 02-20-2025 tetanus toxoid, redu alley diphtheria toxoid, and acellular pertussis vaccine, adsorbed Skyler Vergara MD Work Phone: [facility] Payers Date Payer Category Payer Managed Care (Private) [employer] Kerri clemons [id number] 2022 Private Health Insurance [employer]ETBLANQUITA HERNANDEZ PPO [id number] 2022-Present [phone] [address] [place] [address] [id number] 2022 Private Health Insurance [id number] Unknown [id number] Social History Date Type Detail Facility Start: 07-27-2021 End: 09-07-2022 Tobacco smoking status NHIS Never smoked tobacco [facility] Start: 07-27-2021 End: 09-07-2022 Tobacco use and exposure Smokeless tobacco non-user [facility] Start: 03-16-2022 End: 02-20-2025 Alcohol intake Ex-drinker (finding) [facility] Start: 1960 Sex Assigned At Not on file L [facility] Exposure to SARS-CoV -2 (event) Not sure [facility] Start: 09-26-2023 End: 09-27-2023 History of Social function [facility] Start: 09-26-2023 End: 09-27-2023 Tobacco use panel [facility] How hard is it for y ou to pay for the very basics like food, housing, medical care, and heating Not hard at all [facility] Do you feel stress - tense, restless, nervous, or anxious, or unable to sleep at night because your mind is troubled all the time - these days [OSQ] Not at all [facility] [employer] (I/We) worried wheth er (my/our) food would run out before (I/we) got money to buy more. Never true [facility] Start: 1960 Sex Assigned At Male L [facility] Start: 09-07-2022 Gender identity Identifies as male gender (finding) [facility] Start: 09-07-2022 Sexual orientation Heterosexual (fin ding) [facility] Start: 11-06-2020 Sex Male (finding) [facility] Medical Equipment Procedure Code Equipment Code Equipment Origin al Text Equipment Identifier Dates Xience Skypoint 4.0 X 15 - [id number] [facility] Start: 09-27-2023 Functional Status Date Assessment Result Facility 09-09-2022 Are you deaf, or do you have serious difficulty hearing No 09/09/2022 12:04 PM Lisa Kaur RN No [facility] 09-09-2022 Are you blind, or do you have serious difficulty seeing, even when wearing glasses No 09/09/2022 12:04 PM Lisa Kaur RN No [facility] 09-09-2022 Do you have serious difficulty walking or climbing stairs No 09/09/2022 12:04 PM Lisa Kaur, OSMAN No [facility] 09-09-2022 Do you have difficul ty dressing or bathing No 09/09/2022 12:04 PM Lisa Kaur, OSMAN No [facility] 09-09-2022 Because of a physica l, mental, or emotional condition, do you have difficulty doing errands alone such as visiting a physician's office or shopping No 09/09/2022 12:04 PM Lisa Kaur RN No [facility] Mental Status Date Assessment Result Facility 09-09-2022 Because of a physica l, mental, or emotional condition, do you have serious difficulty concentrating, remembering, or making decisions No 09/09/2022 12:04 PM Lisa Kaur RN No [facility] Clinical Notes 03-16-2022 to 02-20-2025 Discharge InstructionsAttachmentsTiffany M Perez, RN - 02/20/2025 7:18 AM EDLee Ann Perez RN - 02/20/2025 7:18 AM EDLucio Vergara MD - 02/20/2025 7:13 AM EDTPatient Instructions Note Date & Type Note Facility 02-20-2025 Hospital Discharg e instructions Skyler Vergara MD - 02/20/2025 8:53 AM EDT Sutures need removed in 10-14 days The following attachments cannot be sent through Care Everywhere.Laceration Repair ([place])Contusion ([place])documented in this encounter [facility] 02-20-2025 Emergency department Triage note Pt comes to Er due to falling this AM over his dog. Pt states left knee pain and right julien and foot pain. Resp are easy non labored. No s/s of distress or discomfort. Skin noted with abrasions. [facility] 02-20-2025 Emergency department Note Pt comes to Er due to falling this AM over his dog. Pt states left knee pain and right julien and foot pain. Resp are easy non labored. No s/s of distress or discomfort. Skin noted with abrasions. HPI Chief Complaint Patient presents with Fall Leg Pain 64-year-old male on Plavix presents after an injury at home. Was walking barefoot and injured his right lower leg and sustained a laceration to the base of the toe. He also injured his left knee. He did not hit his head or lose consciousness. Tetanus is not up-to-date. No data recorded Patient History Past Medical History: Diagnosis Date CHF (congestive heart failure) ([facility]) Coronary artery disease Diabetes mellitus Hyperlipidemia, unspecified 09/26/2023 Hypertension Left bundle branch block (LBBB) 09/26/2023 CA (myocardial infarction) Past Surgical History: Procedure Laterality Date CARDIAC CATHETERIZATION Left 09/07/2022 Performed by Thong Paez MD at [facility] Cardiac Cath Labs CARDIAC CATHETERIZATION Left 09/27/2023 Performed by Thong Paez MD at [facility] Cardiac Cath Labs CARDIAC CATHETERIZATION N/A 09/27/2023 Performed by Thong Paez MD at [facility] Cardiac Cath Labs CORONARY ANGIOPLASTY CORONARY STENT PLACEMENT CT ANGIOGRAM CHEST 02/01/2018 CT ANGIOGRAM CHEST [facility] Family History Problem Relation Name Age of Onset Hypertension Father Heart failure Father Social History Tobacco Use Smoking status: Never Smokeless tobacco: Never Vaping Use Vaping status: Never Used Substance Use Topics Alcohol use: Not Currently Drug use: Not Currently Types: Marijuana Review of Systems Review of Systems Musculoskeletal: Negative for neck pain. Neurological: Negative for headaches. Physical Exam ED Triage Vitals [02/20/25 0720] Temp Heart Rate Resp BP 36.5 C (97.7 F) 73 16 147/83 SpO2 Temp Source Heart Rate Source Patient Position 99 % Temporal Monitor Sitting BP Location FiO2 (%) Left arm -- Physical Exam Vitals and nursing note reviewed. Constitutional: Appearance: Normal appearance. HENT: Head: Normocephalic and atraumatic. Mouth/Throat: Mouth: Mucous membranes are moist. Cardiovascular: Rate and Rhythm: Normal rate. Pulses: Normal pulses. Musculoskeletal: Cervical back: Normal range of motion. No tenderness. Comments: 2 cm laceration noted at the base of the fifth toe, bleeding controlled, top of the foot and right julien are tender, left knee is bruised and tender with normal range of motion Skin: General: Skin is warm and dry. Capillary Refill: Capillary refill takes less than 2 seconds. Neurological: General: No focal deficit present. Mental Status: He is alert. ED Course & MDM Diagnoses as of 02/20/25 0908 Laceration of toe without foreign body present or damage to nail, unspecified laterality, unspecified toe, initial encounter Contusion of knee, unspecified laterality, initial encounter Medical Decision Making Laceration repaired, see procedure note. Plain films negative for any fracture or foreign body. Tetanus was updated. Will discharge with wound care instructions and clear return precautions provided. All questions answered Skyler Vergara MD 02/20/25 0908 documented in this encounter [facility] 02-20-2025 Miscellaneous Notes Associate d Order(s): Laceration Repair Procedure Laceration Repair Performed by: Skyler Vergara MD Authorized by: Skyler Vergara MD Consent: Consent obtained: Verbal Consent given by: Patient Anesthesia: Anesthesia method: Local infiltration Local anesthetic: Lidocaine 1% w/o epi Laceration details: Location: Toe Toe location: R little toe Length (cm): 2 Exploration: Contaminated: no Treatment: Area cleansed with: Povidone-iodine Amount of cleaning: Extensive Irrigation solution: Sterile saline Skin repair: Repair method: Sutures Suture size: 4-0 Suture material: Nylon Suture technique: Simple interrupted Number of sutures: 4 Approximation: Approximation: Close Repair type: Repair type: Simple Post-procedure details: Dressing: Antibiotic ointment Procedure completion: Tolerated Skyler Vergara MD 02/20/25 0851 documented in this encounter [facility] 02-20-2025 Physician Emergen cy department Note HPI Chief Complaint Patient presents with Fall Leg Pain 64-year-old male on Plavix presents after an injury at home. Was walking barefoot and injured his right lower leg and sustained a laceration to the base of the toe. He also injured his left knee. He did not hit his head or lose consciousness. Tetanus is not up-to-date. No data recorded Patient History Past Medical History: Diagnosis Date CHF (congestive heart failure) (CMS/HCC) Coronary artery disease Diabetes mellitus Hyperlipidemia, unspecified 09/26/2023 Hypertension Left bundle branch block (LBBB) 09/26/2023 CA (myocardial infarction) Past Surgical History: Procedure Laterality Date CARDIAC CATHETERIZATION Left 09/07/2022 Performed by Thong Paez MD at [facility] Cardiac Cath Labs CARDIAC CATHETERIZATION Left 09/27/2023 Performed by Thong Paez MD at [facility] Cardiac Cath Labs CARDIAC CATHETERIZATION N/A 09/27/2023 Performed by Thong Paez MD at [facility] Cardiac Cath Labs CORONARY ANGIOPLASTY CORONARY STENT PLACEMENT CT ANGIOGRAM CHEST 02/01/2018 CT ANGIOGRAM CHEST [facility] Family History Problem Relation Name Age of Onset Hypertension Father Heart failure Father Social History Tobacco Use Smoking status: Never Smokeless tobacco: Never Vaping Use Vaping status: Never Used Substance Use Topics Alcohol use: Not Currently Drug use: Not Currently Types: Marijuana Review of Systems Review of Systems Musculoskeletal: Negative for neck pain. Neurological: Negative for headaches. Physical Exam ED Triage Vitals [02/20/25 0720] Temp Heart Rate Resp BP 36.5 C (97.7 F) 73 16 147/83 SpO2 Temp Source Heart Rate Source Patient Position 99 % Temporal Monitor Sitting BP Location FiO2 (%) Left arm -- Physical Exam Vitals and nursing note reviewed. Constitutional: Appearance: Normal appearance. HENT: Head: Normocephalic and atraumatic. Mouth/Throat: Mouth: Mucous membranes are moist. Cardiovascular: Rate and Rhythm: Normal rate. Pulses: Normal pulses. Musculoskeletal: Cervical back: Normal range of motion. No tenderness. Comments: 2 cm laceration noted at the base of the fifth toe, bleeding controlled, top of the foot and right julien are tender, left knee is bruised and tender with normal range of motion Skin: General: Skin is warm and dry. Capillary Refill: Capillary refill takes less than 2 seconds. Neurological: General: No focal deficit present. Mental Status: He is alert. ED Course & MDM Diagnoses as of 02/20/25 0908 Laceration of toe without foreign body present or damage to nail, unspecified laterality, unspecified toe, initial encounter Contusion of knee, unspecified laterality, initial encounter Medical Decision Making Laceration repaired, see procedure note. Plain films negative for any fracture or foreign body. Tetanus was updated. Will discharge with wound care instructions and clear return precautions provided. All questions answered Skyler Vergara MD 02/20/25 0908 [facility] 02-20-2025 Physician Emergen cy department Note Associated Order(s): Laceration Repair Procedure Laceration Repair Performed by: Skyler Vergara MD Authorized by: Skyler Vergara MD Consent: Consent obtained: Verbal Consent given by: Patient Anesthesia: Anesthesia method: Local infiltration Local anesthetic: Lidocaine 1% w/o epi Laceration details: Location: Toe Toe location: R little toe Length (cm): 2 Exploration: Contaminated: no Treatment: Area cleansed with: Povidone-iodine Amount of cleaning: Extensive Irrigation solution: Sterile saline Skin repair: Repair method: Sutures Suture size: 4-0 Suture material: Nylon Suture technique: Simple interrupted Number of sutures: 4 Approximation: Approximation: Close Repair type: Repair type: Simple Post-procedure details: Dressing: Antibiotic ointment Procedure completion: Tolerated Skyler Vergara MD 02/20/25 0851 [facility] 09-28-2023 Nurse Note Discharge instructions reviewed with patient, all questions answered. [facility] 09-28-2023 Nurse Note Discharge instructions reviewed with patient, all questions answered. Ambulates in hallway without chest pain or dyspnea. Patient returns to unit from labor economist at this time. Right radial TR band in place with 13 ml of air. TR band clean dry and intact. Patient denies chest pain/shortness of breath. Monitor reads SR 60s. BP 133/83. Patient alert and oriented x4. Report received from labor economist RN at this time documented in this encounter [facility] 09-28-2023 Consult note Associated Order (s): IP CONSULT TO DIETITIAN Nutrition Education Patient Name: Andrews Valente Today's Date: 09/28/2023 Current Diagnosis: 1. Acute chest pain 2. NSTEMI (non-ST elevated myocardial infarction) (CMS/HCC) 3. Unstable angina (CMS/HCC) 4. Chronic systolic heart failure (CMS/HCC) Past Medical History: Past Medical History: Diagnosis Date CHF (congestive heart failure) ([facility]/HCC) Coronary artery disease Diabetes mellitus Hyperlipidemia, unspecified 09/26/2023 Hypertension Left bundle branch block (LBBB) 09/26/2023 CA (myocardial infarction) Anthropometric Measurements: Height: Height: 5' 10 (177.8 cm) Weight (pounds): Weight: 101 kg (221 lb 12.5 oz) BMI: BMI (Calculated): 31.82 Weight history: Wt Readings from Last 10 Encounters: 09/28/23 101 kg (221 lb 12.5 oz) 09/09/22 98.2 kg (216 lb 7.9 oz) 04/26/22 93 kg (205 lb) 07/27/21 96.2 kg (212 lb) Labs: Results from last 7 days Lab Units 09/28/23 0358 09/27/23 0327 CHOLESTEROL mg/dL -- 140 TRIGLYCERIDES mg/dL -- 203* HDL mg/dL -- 24* RATIO -- 5.8* LDL CALC mg/dL -- 75 HEMOGLOBIN A1C % -- 7.3* ESTIMATED AVERAGE GLUCOSE mg/dL -- 163 GLUCOSE mg/dL 116* 135* BUN mg/dL 11 10 CREATININE mg/dL 1.0 0.9 EGFR mL/min/1.73m*2 85.1 96.6 BUN / CREAT RATIO 11.0 11.1 ALBUMIN g/dL -- 3.8 CALCIUM mg/dL 8.5* 8.2* SODIUM mmol/L 134 137 CHLORIDE mmol/L 104 103 CO2 mmol/L 21 24 ANION GAP 13.7 13.7 OSMOLALITY CALC mosm/kg 278 285 MAGNESIUM mg/dL 2.3 -- Per chart review: pt came to ED complaining about chest pain occurring for about 2-3 days. Pt has history of CAD and is s/p PCI to LAD circumflex artery in 2019 due to acute CA. Cardiac catheterization was performed which showed stenosis in the circumflex artery and was treated with VIET placement. PMH: CA, T2DM, HTN, CAD, CHF, hyperlipidemia, left bundle branch block Consult to dietitian received for post PCI education. Pt stated he drinks raw milk and primarily chooses red meat. Provided education related to a heart healthy diet. Described to pt about the affects of consumption of foods that are in saturated fats. Provided examples of food high in saturated fat such as full fat dairy products as well as red and processed meats. Suggested pt may try to choose a milk that is lower in fat due to raw milk has a high fat content. Described the effects of excessive salt use relating to heart health. Provided examples of limiting salt content in meals such as purchasing low-sodium canned goods or rinsing off canned goods as well as limiting the amount of prepackaged seasonings used on foods due to having high sodium content. Pt did not have any questions or concerns regarding the information. Pt preferred handouts be provided with discharge - after visit summary was printed before additional references could be added to discharge summary. [facility] 09-28-2023 Consult note Associated Order (s): IP CONSULT TO DIETITIAN Nutrition Education Patient Name: Andrews Valente Today's Date: 09/28/2023 Current Diagnosis: 1. Acute chest pain 2. NSTEMI (non-ST elevated myocardial infarction) (CMS/HCC) 3. Unstable angina (CMS/HCC) 4. Chronic systolic heart failure (CMS/HCC) Past Medical History: Past Medical History: Diagnosis Date CHF (congestive heart failure) (CMS/HCC) Coronary artery disease Diabetes mellitus Hyperlipidemia, unspecified 09/26/2023 Hypertension Left bundle branch block (LBBB) 09/26/2023 CA (myocardial infarction) Anthropometric Measurements: Height: Height: 5' 10 (177.8 cm) Weight (pounds): Weight: 101 kg (221 lb 12.5 oz) BMI: BMI (Calculated): 31.82 Weight history: Wt Readings from Last 10 Encounters: 09/28/23 101 kg (221 lb 12.5 oz) 09/09/22 98.2 kg (216 lb 7.9 oz) 04/26/22 93 kg (205 lb) 07/27/21 96.2 kg (212 lb) Labs: Results from last 7 days Lab Units 09/28/23 0358 09/27/23 0327 CHOLESTEROL mg/dL -- 140 TRIGLYCERIDES mg/dL -- 203* HDL mg/dL -- 24* RATIO -- 5.8* LDL CALC mg/dL -- 75 HEMOGLOBIN A1C % -- 7.3* ESTIMATED AVERAGE GLUCOSE mg/dL -- 163 GLUCOSE mg/dL 116* 135* BUN mg/dL 11 10 CREATININE mg/dL 1.0 0.9 EGFR mL/min/1.73m*2 85.1 96.6 BUN / CREAT RATIO 11.0 11.1 ALBUMIN g/dL -- 3.8 CALCIUM mg/dL 8.5* 8.2* SODIUM mmol/L 134 137 CHLORIDE mmol/L 104 103 CO2 mmol/L 21 24 ANION GAP 13.7 13.7 OSMOLALITY CALC mosm/kg 278 285 MAGNESIUM mg/dL 2.3 -- Per chart review: pt came to ED complaining about chest pain occurring for about 2-3 days. Pt has history of CAD and is s/p PCI to LAD circumflex artery in 2019 due to acute CA. Cardiac catheterization was performed which showed stenosis in the circumflex artery and was treated with VIET placement. PMH: CA, T2DM, HTN, CAD, CHF, hyperlipidemia, left bundle branch block Consult to dietitian received for post PCI education. Pt stated he drinks raw milk and primarily chooses red meat. Provided education related to a heart healthy diet. Described to pt about the affects of consumption of foods that are in saturated fats. Provided examples of food high in saturated fat such as full fat dairy products as well as red and processed meats. Suggested pt may try to choose a milk that is lower in fat due to raw milk has a high fat content. Described the effects of excessive salt use relating to heart health. Provided examples of limiting salt content in meals such as purchasing low-sodium canned goods or rinsing off canned goods as well as limiting the amount of prepackaged seasonings used on foods due to having high sodium content. Pt did not have any questions or concerns regarding the information. Pt preferred handouts be provided with discharge - after visit summary was printed before additional references could be added to discharge summary. Medication Reconciliation Note Medication list information gathered from: Patient, Family, and Medication Dispense History Of note: Patient was an Excellent historian(s). Patient denies taking : Aspirin Emilia Lundy PharmD Prior to Admission Medications Prescriptions Last Dose Informant acetaminophen (Tylenol) 500 mg tablet Sig: Take 1-2 tablets (500-1,000 mg total) by mouth every 6 (six) hours if needed for mild pain. carvedilol (Coreg) 25 mg tablet Unknown Sig: Take 1 tablet (25 mg total) by mouth 2 (two) times a day with meals. clopidogrel (Plavix) 75 mg tablet Unknown Sig: Take 1 tablet (75 mg total) by mouth 1 (one) time each day. glimepiride (Amaryl) 4 mg tablet Unknown Sig: Take 1 tablet (4 mg total) by mouth 1 (one) time each day before breakfast. losartan (Cozaar) 50 mg tablet Unknown Sig: Take 1 tablet (50 mg total) by mouth 1 (one) time each day. metFORMIN (Glucophage) 1,000 mg tablet Unknown Sig: Take 1 tablet (1,000 mg total) by mouth 2 (two) times a day. nitroglycerin (Nitrostat) 0.4 mg SL tablet Unknown Sig: Place 1 tablet (0.4 mg total) under the tongue every 5 (five) minutes if needed for chest pain. rosuvastatin (Crestor) 20 mg tablet Unknown Sig: Take 1 tablet (20 mg total) by mouth every night. spironolactone (Aldactone) 25 mg tablet Unknown Sig: Take 1 tablet (25 mg total) by mouth 1 (one) time each day. Facility-Administered Medications: None documented in this encounter [facility] 09-28-2023 Miscellaneous Notes Formattin g of this note might be different from the original. Jardiance copay $45. Called [facility] [employer] to assess jardiance copay. Unfortunately, they are closed at this time. Attempt at a later time. Andrews Valente 240/240-2 How does patient get up? Up x self Oxygen Needs: room air Discharging today? no Identify possible barriers to meeting goals/advancing plan of care: no barriers noted End of Shift Summary: patient with heart cath this shift, one stent to mid circumflex. Patient with no chest pain. Right radial PCI site within normal limits. Ambulating well with no chest pain/shortness of breath. Patient: Andrews Valente Date of : 1960 Home no needs, to transport. 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 Attempt baseline at a later time. Patient: Andrews Valente Pre-sedation Evaluation: Proposed Procedure: * Left heart cath Indication/Symptoms: 1. Acute chest pain 2. NSTEMI (non-ST elevated myocardial infarction) (CMS/HCC) 3. Unstable angina (CMS/HCC) Sedation necessary for: Anxiety Requesting service: Cardiology Pre-sedation assessment: Time since last food or drink: Nothing to eat or drink after midnight NPO status caution: none ASA classification: ASA 2 - Patient with mild systemic disease Planned anesthesia: Minimal Neck Mobility: normal Mouth openin or more finger widths Thyromental distance: 4 finger widths Mallampati score: I (soft palate, uvula, fauces, and tonsillar pillars visible) Pre-sedation assessments completed and reviewed: cardiovascular function WNL History of difficult intubation: no Pre-Induction Reassessment: Assessment conducted immediately prior to administration of sedation. No reassessment needed. Reassessment: Reassessment: No change in condition since H&P performed/completed For addition History and Physical Exam information: See Electronic Procedural Documentation Andrews Bolivardmore 240/240-2 How does patient get up? self Oxygen Needs: none Discharging today? possible Identify possible barriers to meeting goals/advancing plan of care: int cp End of Shift Summary: cardio consult Andrews Valente 240/240-2 How does patient get up? self Oxygen Needs: none Discharging today? possible Identify possible barriers to meeting goals/advancing plan of care: int cp End of Shift Summary: cardio consult documented in this encounter [facility] 09-28-2023 Note Formatting of this n ote might be different from the original. Jardiance copay $45. [facility] 09-28-2023 Hospital course Narrative Discharge Diagnosis Non-ST elevation myocardial infarction Coronary artery disease Chronic heart failure with reduced ejection fraction Type 2 diabetes mellitus Hypertension Hyperlipidemia Hospital Course 63-year-old gentleman with a past medical history of coronary artery disease status post PCI to the LAD and circumflex artery in 2018 with known plaque in the distal left main 08/2022, ischemic cardiomyopathy with LVEF 28%, hypertension, hyperlipidemia, and type 2 diabetes mellitus who presented to the emergency department with complaints of chest pain for several days. Patient denied any associated symptoms. He did state he is having shortness of breath with exertion. Work-up in the emergency department revealed troponins 292/300/325, EKG sinus rhythm, and chest x-ray without acute pathology. He was placed on aspirin, Plavix, and heparin drip and was evaluated by cardiology who performed left heart catheterization which revealed high-grade stenosis in the circumflex artery which was treated with VIET placement. Follow-up echocardiogram revealed severely reduced LV systolic function EF 25%. Patient continues to do well without further chest pain. He continues on aspirin, Plavix, beta-celeste, and statin. Will be discharged home in stable condition with close follow-up. Patient Active Problem List Diagnosis NSTEMI (non-ST elevated myocardial infarction) (CMS/HCC) Chest pain Coronary artery disease Type 2 diabetes mellitus Hypertension Acute kidney injury Chronic systolic heart failure (CMS/HCC) Left bundle branch block (LBBB) Hyperlipidemia, unspecified Pertinent Physical Exam At Time of Discharge Blood pressure (!) 159/110, pulse 74, temperature 36.6 C (97.9 F), temperature source Oral, resp. rate 16, height 5' 10 (1.778 m), weight 101 kg (221 lb 12.5 oz), SpO2 96%. General Appearance: awake, alert, oriented, in no acute distress Skin: skin color, texture, turgor are normal Head/Face: NCAT Eyes: Pupils- PERRL Ears: External- normal and Hearing- bilateral- normal to conversation Mouth/Throat: Mucosa moist, no lesions Neck: neck- supple, trachea midline Lungs: Normal expansion. Clear to auscultation. No rales, rhonchi, or wheezing. Heart: RRR, no murmur, rub or gallop. No lower extremity edema Abdomen: Soft, non-tender, non-distended Musculoskeletal: Strength normal, no cyanosis, clubbing Neurologic: Strength and sensation grossly normal Psych: Alert and oriented x3 Instructions for Patient Post-Discharge Outpatient Follow-Up No future appointments. Time Discharging 35 minutes Your medication list START taking these medications Instructions Last Dose Given Next Dose Due aspirin 81 mg chewable tablet Start taking on: September 29, 2023 Chew 1 tablet (81 mg total) 1 (one) time each day. empagliflozin 10 mg Commonly known as: Jardiance Start taking on: September 29, 2023 Take 1 tablet (10 mg total) by mouth 1 (one) time each day. CHANGE how you take these medications Instructions Last Dose Given Next Dose Due losartan 100 mg tablet Commonly known as: Cozaar What changed: medication strength how much to take Take 1 tablet (100 mg total) by mouth 1 (one) time each day. CONTINUE taking these medications Instructions Last Dose Given Next Dose Due acetaminophen 500 mg tablet Commonly known as: Tylenol carvedilol 25 mg tablet Commonly known as: Coreg clopidogrel 75 mg tablet Commonly known as: Plavix glimepiride 4 mg tablet Commonly known as: Amaryl Take 1 tablet (4 mg total) by mouth 1 (one) time each day before breakfast. metFORMIN 1,000 mg tablet Commonly known as: Glucophage nitroglycerin 0.4 mg SL tablet Commonly known as: Nitrostat rosuvastatin 20 mg tablet Commonly known as: Crestor spironolactone 25 mg tablet Commonly known as: Aldactone Take 1 tablet (25 mg total) by mouth 1 (one) time each day. Where to Get Your Medications These medications were sent to [facility] [address] [place], [place] [id number] aspirin 81 mg chewable tablet empagliflozin 10 mg losartan 100 mg tablet Therapy Plan No therapy plan of the specified type found. documented in this encounter [facility] 09-28-2023 Nurse Note Ambulates in hallway without chest pain or dyspnea. [facility] 09-28-2023 Note Formatting of this n ote might be different from the original. Called [facility] [employer] to assess jardiance copay. Unfortunately, they are closed at this time. Attempt at a later time. [facility] 09-27-2023 Plan of care note Andrews Valente 240/240-2 How does patient get up? Up x self Oxygen Needs: room air Discharging today? no Identify possible barriers to meeting goals/advancing plan of care: no barriers noted End of Shift Summary: patient with heart cath this shift, one stent to mid circumflex. Patient with no chest pain. Right radial PCI site within normal limits. Ambulating well with no chest pain/shortness of breath. [facility] 09-27-2023 Note Formatting of this n ote might be different from the original. Patient: Andrews Valente Date of : 1960 Home no needs, to transport. Living Arrangements Type of Residence: Private residence Living Arrangements: Spouse/significant other, Children Support Systems: Spouse/significant other Private Residence Type: [place] How Many Levels in the Home?: 1 Level Main floor Bed/Bath?: Yes Bathtub/Shower Type?: Step-in Are There Stairs to Enter Home?: Yes Number of Stairs to Enter: 4 Entry Handrail?: Yes Ramp Installed?: No Prior Level of Participation Prior Level of Participation: Independent Active Industrial Maintenance Instructor?: Yes Active or Sedentary: Active Assistive Devices: None Respiratory Support: None Who is requesting discharge planning?: Other (Comment) (s/o) Home or Post Acute Services: None Transportation Home or Post Acute Services: None Patient expects to be discharged to:: Home Does the patient need discharge transport arranged?: No What Kind of Transport?: Family Has discharge transport been arranged?: No Assessment Completion Assessment Completed With:: patient Clinician: Caryl Alonso RN [facility] 09-27-2023 Note [address] [place], [place] [address] Invasive Procedure Report PATIENT INFORMATION Patient Name SIDRA, Age 63 Years ANDREWS Pillai Study Date 09/27/2023 Gender Male Race White Study Number [id number] Height 178 cm (5'10) Weight 99.7 kg (220 lbs) Date of 1960 BSA 2.17 m2 STAFF Duty Name Diagnostic Zipper Machine Operator Thong Paez MD 11:26 AM Leadlighter Fabiola Ramos RN 11:26 AM Leadlighter Yasmine Aldridge RN 11:26 AM Monitor Maribel Almanzar RN 11:27 AM Monitor Yasmine Aldridge RN 11:27 AM Scrub RT Valeria 11:34 AM Product Trainer Thong Paez MD 12:29 PM PROCEDURES Procedure Comment Left Heart Cath Coronary Angiogram PCI & Stent to LCX ACT. ACT. CONTRAST Contrast Amount (m l) Comment Patient Name: ANDREWS VALENTE Study Date: 09/27/2023 Admission ID: [id number] Page 1 of 17 [address], [place] [address] Isovue 370 100 PRESSURE SUMMARY (mmHg) Time Site Sys Jimenez EDP Mean A Wave V Wave HR 12:22 PM LV 115 1 9 67 12:22 PM LV 118 6 10 66 12:22 PM LV 100 6 13 66 12:22 PM AO 92 50 55 55 12:41 PM AO 114 64 85 64 PHYSICIAN DESIRED OTERO SEDATION SCALE (RSS) Anxious/agitated or restless = 1 Patient is cooperative, oriented & tranquil = 2 Patient responds to commands only = 3 Patient asleep but responds briskly to light glabellar tap or loud sounds = 4 Patient asleep with sluggish response to light glabellar tap or sounds = 5 Patient asleep with no response to stimuli = 6 Physician Desired Otero Level = 2 VITAL SIGNS Time SpO HR BP Exp RR Tem RSS/RASS LOP Comment 2 (BP (m m Hg) CO2 (per p (%) M) (m m H m in) ( C ) g) 11:54 96 72 160/90/119 35 18 2 0 AM 11:59 95 64 142/89/111 27 20 2 0 AM 12:03 96 66 128/77/95 33 14 2 0 PM 12:08 95 67 127/76/93 38 19 2 0 PM 12:13 95 65 119/73/91 30 14 2 0 PM 12:18 95 64 120/78/95 31 16 2 0 PM 12:23 93 67 131/82/100 36 17 2 0 PM 12:29 93 64 149/79/104 36 16 2 0 PM 12:33 95 64 141/78/101 31 15 2 0 PM 12:38 96 63 141/74/99 34 16 2 0 PM Patient Name: ANDREWS VALENTE Study Date: 09/27/2023 Admission ID: [id number] Page 2 of [address] [place] [address] 12:43 96 66 139/75/101 33 16 2 0 PM 12:49 95 63 155/84/112 36 15 2 0 PM 12:55 97 64 148/76/103 36 16 2 0 PM 12:59 96 64 144/69/99 34 15 2 0 PM 1:04 97 62 143/79/104 28 14 2 0 PM 1:08 95 62 140/83/105 34 15 2 0 PM ALLERGIES Allergies: NKDA PATIENT EDUCATION Learning Barrier Present None Learning Preference (more content not included)... [facility] 09-27-2023 Note Formatting of this n ote might be different from the original. Pt noted to be off the floor to labor economist. Attempt baseline at a later time. [facility] 09-27-2023 Nurse Note Patient returns to unit from labor economist at this time. Right radial TR band in place with 13 ml of air. TR band clean dry and intact. Patient denies chest pain/shortness of breath. Monitor reads SR 60s. BP 133/83. Patient alert and oriented x4. [facility] 09-27-2023 Nurse Note Report received from labor economist RN at this time [facility] 09-27-2023 Note Formatting of this n ote is different from the original. Patient: Andrews Valente Pre-sedation Evaluation: Proposed Procedure: * Left heart cath Indication/Symptoms: 1. Acute chest pain 2. NSTEMI (non-ST elevated myocardial infarction) ([facility]) 3. Unstable angina ([facility]) Sedation necessary for: Anxiety Requesting service: Cardiology Pre-sedation assessment: Time since last food or drink: Nothing to eat or drink after midnight NPO status caution: none ASA classification: ASA 2 - Patient with mild systemic disease Planned anesthesia: Minimal Neck Mobility: normal Mouth openin or more finger widths Thyromental distance: 4 finger widths Mallampati score: I (soft palate, uvula, fauces, and tonsillar pillars visible) Pre-sedation assessments completed and reviewed: cardiovascular function WNL History of difficult intubation: no Pre-Induction Reassessment: Assessment conducted immediately prior to administration of sedation. No reassessment needed. Reassessment: Reassessment: No change in condition since H&P performed/completed For addition History and Physical Exam information: See Electronic Procedural Documentation [facility] Work Phone: 09-27-2023 History of Presen t illness Narrative Daily Progress Note Subjective 63-year-old gentleman with a past medical history of coronary artery disease status post PCI to the LAD and circumflex artery in 2019 with known plaque in the distal left main 08/2022, ischemic cardiomyopathy with LVEF 28%, hypertension, hyperlipidemia, and type 2 diabetes mellitus who presented to the emergency department with complaints of chest pain for several days. Patient denied any associated symptoms. He did state he is having shortness of breath with exertion. Work-up in the emergency department revealed troponins 292/300/325, EKG sinus rhythm, and chest x-ray without acute pathology. He was placed on aspirin, Plavix, and heparin drip and was evaluated by cardiology who plans for left heart catheterization today. Patient seen and examined at the bedside. Denies any further chest pain at this time. Left heart catheterization and echocardiogram pending. Objective Vital signs in last 24 hours: Temp: [36.4 C (97.6 F)-37.6 C (99.7 F)] 37.6 C (99.7 F) Heart Rate: [64-86] 67 Resp: [16-26] 18 BP: (112-194)/(60-131) 127/76 Intake/Output last 3 shifts: I/O last 3 completed shifts: In: 518 (5.2 mL/kg) [P.O.:200; I.V.:318 (3.2 mL/kg)] Out: - (0 mL/kg) Weight: 99.7 kg Intake/Output this shift: No intake/output data recorded. Physical Exam General Appearance: awake, alert, oriented, in no acute distress Skin: skin color, texture, turgor are normal Head/Face: NCAT Eyes: Pupils- PERRL Ears: External- normal and Hearing- bilateral- normal to conversation Mouth/Throat: Mucosa moist, no lesions Neck: neck- supple, trachea midline Lungs: Normal expansion. Clear to auscultation. No rales, rhonchi, or wheezing. Heart: RRR, no murmur, rub or gallop. No lower extremity edema Abdomen: Soft, non-tender, non-distended Musculoskeletal: Strength normal, no cyanosis, clubbing Neurologic: Strength and sensation grossly normal Psych: Alert and oriented x3 Assessment/Plan Elevated troponin Flat elevated troponin concerning for acute non-ST elevated myocardial infarction. Continues on aspirin, Plavix, heparin drip, beta-celeste, and statin. Evaluated by cardiology who will perform left heart catheterization today. Coronary artery disease History of PCI to the LAD and circumflex artery in 2019. Catheterization 08/2022 revealed ulcerative plaque in the distal left main which was treated medically. Chronic heart failure with reduced ejection fraction LVEF 28% on most recent echocardiogram. This has been reordered. Continue beta-celeste, ARB, Aldactone. Jardiance added. Type 2 diabetes mellitus Continue home medications. Jardiance added. Hypertension Continue beta-celeste and ARB. Hyperlipidemia Continue statin. LOS: 1 day Anti-XA Heparin drip cardiac titration 09/27 1000 Xa 0.23 Increase by 2 to 14.2 units/kg/hr Notified OSMAN Burk documented in this encounter [facility] 09-27-2023 Plan of care note Andrews Valente 240/240-2 How does patient get up? self Oxygen Needs: none Discharging today? possible Identify possible barriers to meeting goals/advancing plan of care: int cp End of Shift Summary: cardio consult [facility] 09-27-2023 Plan of care note Andrews Valente 240/240-2 How does patient get up? self Oxygen Needs: none Discharging today? possible Identify possible barriers to meeting goals/advancing plan of care: int cp End of Shift Summary: cardio consult [facility] 09-26-2023 History and physical note Physician Certification for Admission I expect the patient to be hospitalized for 1 midnights for medical treatment and services related to unstable angina/NSTEMI. History Of Present Illness Andrews Valente is a 63 y.o. male with a past medical history of moderate CAD as per cardiac cath in August 2022, hypertension, PPM, cardiomyopathy, congestive failure, chronic left bundle branch block who presents ER with complaints of chest pain and dyspnea with exertion. Patient reports symptoms have been going on for the past 2 to 3 days, with chest pain occurring with any exertion, resolves with rest and nitroglycerin. Since symptoms are not going away he decided come to the ER for further evaluation. Patient is currently chest pain-free. Workup in ER: Blood pressure is quite elevated upon presentation at 194/131. Blood pressure improved with some interventions in the ER.. CBC and BMP unremarkable. Troponins elevated slightly uptrending at 292, and 325. Chest x-ray: Unremarkable. EKG: Sinus rhythm with chronic left lung base block, no acute ischemic changes. Please note the patient did undergo cardiac cath inNovember 2021 at which time he was noted to have an ulcerative lesion in the left main vessel but also 60% lesions of the distal circumflex and first obtuse marginal. No interventions were required at that time and he was placed on medical management with nitroglycerin, Lipitor, blood pressure medications. Patient was started on heparin drip in the ER. He also received loading dose of aspirin and admitted to CCU. Past Medical History He has a past medical history of CHF (congestive heart failure) ([facility]), Coronary artery disease, Diabetes mellitus, Hyperlipidemia, unspecified (09/26/2023), Hypertension, Left bundle branch block (LBBB) (09/26/2023), and CA (myocardial infarction). Surgical History He has a past surgical history that includes CT ANGIOGRAM CHEST (02/01/2018); Coronary stent placement; Coronary angioplasty; and Cardiac catheterization (Left, 09/07/2022). Social History He reports that he has never smoked. He has never used smokeless tobacco. He reports that he does not currently use alcohol. He reports that he does not currently use drugs after having used the following drugs: Marijuana. Family History Family History Problem Relation Name Age of Onset Hypertension Father Heart failure Father Allergies Patient has no known allergies. Labs Results from last 7 days Lab Units 09/26/23 2101 WBC AUTO 10*3/uL 7.9 HEMOGLOBIN g/dL 14.9 HEMATOCRIT % 47.4 PLATELETS AUTO 10*3/uL 245 Results from last 7 days Lab Units 09/26/23 1931 SODIUM mmol/L 139 POTASSIUM mmol/L 4.3 CHLORIDE mmol/L 102 CO2 mmol/L 31 BUN mg/dL 12 CREATININE mg/dL 1.2 CALCIUM mg/dL 9.0 Medications Medications Prior to Admission Medication Sig Dispense Refill Last Dose acetaminophen (Tylenol) 500 mg tablet Take 1-2 tablets (500-1,000 mg total) by mouth every 6 (six) hours if needed for mild pain. carvedilol (Coreg) 25 mg tablet Take 1 tablet (25 mg total) by mouth 2 (two) times a day with meals. Unknown clopidogrel (Plavix) 75 mg tablet Take 1 tablet (75 mg total) by mouth 1 (one) time each day. Unknown glimepiride (Amaryl) 4 mg tablet Take 1 tablet (4 mg total) by mouth 1 (one) time each day before breakfast. Unknown losartan (Cozaar) 50 mg tablet Take 1 tablet (50 mg total) by mouth 1 (one) time each day. Unknown metFORMIN (Glucophage) 1,000 mg tablet Take 1 tablet (1,000 mg total) by mouth 2 (two) times a day. Unknown nitroglycerin (Nitrostat) 0.[address] 1 tablet (0.4 mg total) under the tongue every 5 (five) minutes if needed for chest pain. Unknown rosuvastatin (Crestor) 20 mg tablet Take 1 tablet (20 mg total) by mouth every night. Unknown spironolactone (Aldactone) 25 mg tablet Take 1 tablet (25 mg total) by mouth 1 (one) time each day. Unknown Review of Systems Psychological ROS: negative Ophthalmic ROS: negative ENT ROS: negative Allergy and Immunology ROS: negative Hematological and Lymphatic ROS: negative Endocrine ROS: negative Respiratory ROS: negative Cardiovascular ROS: As above Gastrointestinal ROS: negative Genitourinary ROS: negative Musculoskeletal ROS: negative Neurological ROS: negative Dermatological ROS: negative Physical Exam General Appearance: awake, alert, oriented, in no acute distress Skin: skin color, texture, turgor are normal Head/Face: NCAT Eyes: Pupils- PERRL Ears: External- normal and Hearing- bilateral- normal to conversation Mouth/Throat: Mucosa moist, no lesions Neck: neck- supple, trachea midline Lungs: Normal expansion. Clear to auscultation. No rales, rhonchi, or wheezing. Heart: RRR, no murmur, rub or gallop. No lower extremity edema Abdomen: Soft, non-tender, non-distended Musculoskeletal: Strength normal, no cyanosis, clubbing Neurologic: Strength and sensation grossly normal Psych: Alert and oriented x3 Last Recorded Vitals Blood pressure 132/78, pulse 80, temperature 36.4 C (97.6 F), temperature source Oral, resp. rate 18, height 5' 10 (1.778 m), weight 99.7 kg (219 lb 12.8 oz), SpO2 96%. Assessment/Plan Principal Problem: NSTEMI (non-ST elevated myocardial infarction) (CMS/HCC) Active Problems: Coronary artery disease Type 2 diabetes mellitus Hypertension Chronic systolic heart failure (CMS/HCC) Left bundle branch block (LBBB) Hyperlipidemia, unspecified Hypertensive urgency Unstable angina/NSTEMI -Currently chest pain-free. His symptoms are chest pain, tightness with exertion, resolves with nitroglycerin and rest. -Continue aspirin, Plavix, heparin drip. Continue high intensity statins as well. Nitroglycerin as needed. -Keep him n.p.o. after midnight, and consult cardiology for further evaluation. History of nonobstructive CAD -As per cardiac cath in August 2022. Please see discussion above. Continue home medication regimen. Cardiomyopathy/chronic systolic CHF -Compensated. Continue home medication regimen of aspirin, Coreg, losartan and spironolactone. Hypertension, poorly controlled -Resume home medications. Received IV hydralazine and Imdur in the ER. Hyperlipidemia -Continue Crestor Total time spent in reviewing the chart, data, discussion with the patient/family, and other providers, [id number] discussion with the patient, recorder helper seismograph is 45 minutes. Note: Computer voice recognition system was used in parts of this documentation. There is a possibility of sound-alike word errors inherent to this technology that may be missed during proof-reading and may alter the context of this note. [facility] Work Phone: 09-26-2023 History and physical note Physician Certification for Admission I expect the patient to be hospitalized for 1 midnights for medical treatment and services related to unstable angina/NSTEMI. History Of Present Illness Andrews Valente is a 63 y.o. male with a past medical history of moderate CAD as per cardiac cath in August 2022, hypertension, PPM, cardiomyopathy, congestive failure, chronic left bundle branch block who presents ER with complaints of chest pain and dyspnea with exertion. Patient reports symptoms have been going on for the past 2 to 3 days, with chest pain occurring with any exertion, resolves with rest and nitroglycerin. Since symptoms are not going away he decided come to the ER for further evaluation. Patient is currently chest pain-free. Workup in ER: Blood pressure is quite elevated upon presentation at 194/131. Blood pressure improved with some interventions in the ER.. CBC and BMP unremarkable. Troponins elevated slightly uptrending at 292, and 325. Chest x-ray: Unremarkable. EKG: Sinus rhythm with chronic left lung base block, no acute ischemic changes. Please note the patient did undergo cardiac cath inNovember 2021 at which time he was noted to have an ulcerative lesion in the left main vessel but also 60% lesions of the distal circumflex and first obtuse marginal. No interventions were required at that time and he was placed on medical management with nitroglycerin, Lipitor, blood pressure medications. Patient was started on heparin drip in the ER. He also received loading dose of aspirin and admitted to CCU. Past Medical History He has a past medical history of CHF (congestive heart failure) ([facility]), Coronary artery disease, Diabetes mellitus, Hyperlipidemia, unspecified (09/26/2023), Hypertension, Left bundle branch block (LBBB) (09/26/2023), and CA (myocardial infarction). Surgical History He has a past surgical history that includes CT ANGIOGRAM CHEST (02/01/2018); Coronary stent placement; Coronary angioplasty; and Cardiac catheterization (Left, 09/07/2022). Social History He reports that he has never smoked. He has never used smokeless tobacco. He reports that he does not currently use alcohol. He reports that he does not currently use drugs after having used the following drugs: Marijuana. Family History Family History Problem Relation Name Age of Onset Hypertension Father Heart failure Father Allergies Patient has no known allergies. Labs Results from last 7 days Lab Units 09/26/23 2101 WBC AUTO 10*3/uL 7.9 HEMOGLOBIN g/dL 14.9 HEMATOCRIT % 47.4 PLATELETS AUTO 10*3/uL 245 Results from last 7 days Lab Units 09/26/23 1931 SODIUM mmol/L 139 POTASSIUM mmol/L 4.3 CHLORIDE mmol/L 102 CO2 mmol/L 31 BUN mg/dL 12 CREATININE mg/dL 1.2 CALCIUM mg/dL 9.0 Medications Medications Prior to Admission Medication Sig Dispense Refill Last Dose acetaminophen (Tylenol) 500 mg tablet Take 1-2 tablets (500-1,000 mg total) by mouth every 6 (six) hours if needed for mild pain. carvedilol (Coreg) 25 mg tablet Take 1 tablet (25 mg total) by mouth 2 (two) times a day with meals. Unknown clopidogrel (Plavix) 75 mg tablet Take 1 tablet (75 mg total) by mouth 1 (one) time each day. Unknown glimepiride (Amaryl) 4 mg tablet Take 1 tablet (4 mg total) by mouth 1 (one) time each day before breakfast. Unknown losartan (Cozaar) 50 mg tablet Take 1 tablet (50 mg total) by mouth 1 (one) time each day. Unknown metFORMIN (Glucophage) 1,000 mg tablet Take 1 tablet (1,000 mg total) by mouth 2 (two) times a day. Unknown nitroglycerin (Nitrostat) 0.[address] 1 tablet (0.4 mg total) under the tongue every 5 (five) minutes if needed for chest pain. Unknown rosuvastatin (Crestor) 20 mg tablet Take 1 tablet (20 mg total) by mouth every night. Unknown spironolactone (Aldactone) 25 mg tablet Take 1 tablet (25 mg total) by mouth 1 (one) time each day. Unknown Review of Systems Psychological ROS: negative Ophthalmic ROS: negative ENT ROS: negative Allergy and Immunology ROS: negative Hematological and Lymphatic ROS: negative Endocrine ROS: negative Respiratory ROS: negative Cardiovascular ROS: As above Gastrointestinal ROS: negative Genitourinary ROS: negative Musculoskeletal ROS: negative Neurological ROS: negative Dermatological ROS: negative Physical Exam General Appearance: awake, alert, oriented, in no acute distress Skin: skin color, texture, turgor are normal Head/Face: NCAT Eyes: Pupils- PERRL Ears: External- normal and Hearing- bilateral- normal to conversation Mouth/Throat: Mucosa moist, no lesions Neck: neck- supple, trachea midline Lungs: Normal expansion. Clear to auscultation. No rales, rhonchi, or wheezing. Heart: RRR, no murmur, rub or gallop. No lower extremity edema Abdomen: Soft, non-tender, non-distended Musculoskeletal: Strength normal, no cyanosis, clubbing Neurologic: Strength and sensation grossly normal Psych: Alert and oriented x3 Last Recorded Vitals Blood pressure 132/78, pulse 80, temperature 36.4 C (97.6 F), temperature source Oral, resp. rate 18, height 5' 10 (1.778 m), weight 99.7 kg (219 lb 12.8 oz), SpO2 96%. Assessment/Plan Principal Problem: NSTEMI (non-ST elevated myocardial infarction) ([facility]) Active Problems: Coronary artery disease Type 2 diabetes mellitus Hypertension Chronic systolic heart failure ([facility]) Left bundle branch block (LBBB) Hyperlipidemia, unspecified Hypertensive urgency Unstable angina/NSTEMI -Currently chest pain-free. His symptoms are chest pain, tightness with exertion, resolves with nitroglycerin and rest. -Continue aspirin, Plavix, heparin drip. Continue high intensity statins as well. Nitroglycerin as needed. -Keep him n.p.o. after midnight, and consult cardiology for further evaluation. History of nonobstructive CAD -As per cardiac cath in August 2022. Please see discussion above. Continue home medication regimen. Cardiomyopathy/chronic systolic CHF -Compensated. Continue home medication regimen of aspirin, Coreg, losartan and spironolactone. Hypertension, poorly controlled -Resume home medications. Received IV hydralazine and Imdur in the ER. Hyperlipidemia -Continue Crestor Total time spent in reviewing the chart, data, discussion with the patient/family, and other providers, [id number] discussion with the patient, recorder helper seismograph is 45 minutes. Note: Computer voice recognition system was used in parts of this documentation. There is a possibility of sound-alike word errors inherent to this technology that may be missed during proof-reading and may alter the context of this note. documented in this encounter [facility] 09-26-2023 Consult note Formatting of th is note is different from the original. Medication Reconciliation Note Medication list information gathered from: Patient, Family, and Medication Dispense History Of note: Patient was an Excellent historian(s). Patient denies taking : Aspirin Emilia Lundy, EvD Prior to Admission Medications Prescriptions Last Dose Informant acetaminophen (Tylenol) 500 mg tablet Sig: Take 1-2 tablets (500-1,000 mg total) by mouth every 6 (six) hours if needed for mild pain. carvedilol (Coreg) 25 mg tablet Unknown Sig: Take 1 tablet (25 mg total) by mouth 2 (two) times a day with meals. clopidogrel (Plavix) 75 mg tablet Unknown Sig: Take 1 tablet (75 mg total) by mouth 1 (one) time each day. glimepiride (Amaryl) 4 mg tablet Unknown Sig: Take 1 tablet (4 mg total) by mouth 1 (one) time each day before breakfast. losartan (Cozaar) 50 mg tablet Unknown Sig: Take 1 tablet (50 mg total) by mouth 1 (one) time each day. metFORMIN (Glucophage) 1,000 mg tablet Unknown Sig: Take 1 tablet (1,000 mg total) by mouth 2 (two) times a day. nitroglycerin (Nitrostat) 0.4 mg SL tablet Unknown Sig: Place 1 tablet (0.4 mg total) under the tongue every 5 (five) minutes if needed for chest pain. rosuvastatin (Crestor) 20 mg tablet Unknown Sig: Take 1 tablet (20 mg total) by mouth every night. spironolactone (Aldactone) 25 mg tablet Unknown Sig: Take 1 tablet (25 mg total) by mouth 1 (one) time each day. Facility-Administered Medications: None [facility] Work Phone: 09-26-2023 Emergency department Triage note Pt ambulates to triage with c/o chest pain ongoing for a few days. Pt states he has been using nitroglycerin with relief. Pt states today he has used two nitroglycerin and had relief. Pt states dull penetrating pain. Pt denies N/V, denies dizziness pt states this feels worse than his NSTEMI last year. [facility] 09-26-2023 Emergency department Note Pt ambulates to triage with c/o chest pain ongoing for a few days. Pt states he has been using nitroglycerin with relief. Pt states today he has used two nitroglycerin and had relief. Pt states dull penetrating pain. Pt denies N/V, denies dizziness pt states this feels worse than his NSTEMI last year. HPI Chief Complaint Patient presents with Chest Pain 63-year-old male presents ED because of recurring chest discomfort. Described as a pressure sensation with radiation into his left arm. It precipitously comes on with exertion but improves with rest and sometimes improved with sublingual nitroglycerin. He has known coronary artery disease that was discovered on catheterization 1 year ago at which time he was noted to have an ulcerative lesion in the left main vessel but also 60% lesions of the distal circumflex and first obtuse marginal. No interventions were required at that time and he was put on nitroglycerin. He was chronically on Lipitor. He has not been studied or had stress test since the cath 1 year ago. Symptoms began in the past week. No associated dyspnea. No diaphoresis. No nausea or vomiting. Currently pain-free at the time of my evaluation. Symptoms are becoming more frequent, more intense and provoked by lesser degrees of exertion History provided by: Patient bilingual interpreter used: No Chest Pain Pain location: Substernal area Pain quality: tightness Pain radiates to: L shoulder and L arm Pain severity: Moderate Onset quality: Gradual Timing: Intermittent Progression: Worsening Chronicity: New Relieved by: Nothing Worsened by: Nothing Ineffective treatments: None tried Associated symptoms: no shortness of breath Risk factors: high cholesterol and hypertension No data recorded Patient History Past Medical History: Diagnosis Date CHF (congestive heart failure) (CMS/HCC) Coronary artery disease Diabetes mellitus Hypertension CA (myocardial infarction) Past Surgical History: Procedure Laterality Date CARDIAC CATHETERIZATION Left 09/07/2022 Performed by Thong Paez MD at [facility] Cardiac Cath Labs CORONARY ANGIOPLASTY CORONARY STENT PLACEMENT CT ANGIOGRAM CHEST 02/01/2018 CT ANGIOGRAM CHEST [facility] Family History Problem Relation Name Age of Onset Hypertension Father Heart failure Father Social History Tobacco Use Smoking status: Never Smokeless tobacco: Never Vaping Use Vaping Use: Never used Substance Use Topics Alcohol use: Not Currently Drug use: Not Currently Types: Marijuana Review of Systems Review of Systems Respiratory: Negative for shortness of breath. Cardiovascular: Positive for chest pain. All other systems reviewed and are negative. Physical Exam ED Triage Vitals Temp Heart Rate Resp BP 09/26/23 1849 09/26/23 1846 09/26/23 1846 09/26/23 1846 36.6 C (97.8 F) 78 18 (!) 194/131 SpO2 Temp src Heart Rate Source Patient Position 09/26/231845 -- 09/26/23185209/26/231852 97 % Monitor Sitting BP Location FiO2 (%) 09/26/231852 -- Right arm Physical Exam Vitals reviewed. HENT: Head: Normocephalic and atraumatic. Eyes: Pupils: Pupils are equal, round, and reactive to light. Cardiovascular: Rate and Rhythm: Normal rate. Heart sounds: Normal heart sounds. Pulmonary: Effort: Pulmonary effort is normal. Breath sounds: Normal breath sounds. No decreased breath sounds, wheezing or rhonchi. Abdominal: Palpations: Abdomen is soft. Musculoskeletal: General: Normal range of motion. Cervical back: Normal range of motion. Right lower leg: No tenderness. No edema. Left lower leg: No tenderness. No edema. Skin: General: Skin is warm. Capillary Refill: Capillary refill takes less than 2 seconds. Neurological: General: No focal deficit present. Mental Status: He is alert and oriented to person, place, and time. Psychiatric: Mood and Affect: Mood normal. Behavior: Behavior normal. ED Course & MDM ED Course as of 09/28/231704 Tue Sep 26, 20232048 Patient remains pain-free but first troponin is elevated to 92. Improvement of his blood pressure with 1 dose of IV hydralazine. Given his known 60% lesions in the circumflex and obtuse marginal 1 year ago as well as the ulcerative plaque noted in the left main, will go ahead and start IV heparin. His symptoms are consistent with unstable angina and will be admitted for further evaluation. He does have chronic left bundle branch block, diminishing sensitivity of current EKG. [BA] 2199 Awaiting callback from hospitalist [BA] 2245 Gradual upward trend of troponin but patient remains pain-free. [BA] 225 D/W Dr. Stearns to admit [BA] ED Course User Index [BA] Tawanda Becerra MD Diagnoses as of 09/28/231704 Acute chest pain NSTEMI (non-ST elevated myocardial infarction) (CMS/HCC) Unstable angina (CMS/HCC) Medical Decision Making Acute chest pain: acute illness or injury NSTEMI (non-ST elevated myocardial infarction) (CMS/HCC): acute illness or injury Unstable angina (CMS/HCC): acute illness or injury Amount and/or Complexity of Data Reviewed Labs: ordered. Radiology: ordered and independent interpretation performed. ECG/medicine tests: ordered and independent interpretation performed. Tawanda Becerra MD 09/28/23 1914 documented in this encounter [facility] 09-26-2023 Physician Emergen cy department Note HPI Chief Complaint Patient presents with Chest Pain 63-year-old male presents ED because of recurring chest discomfort. Described as a pressure sensation with radiation into his left arm. It precipitously comes on with exertion but improves with rest and sometimes improved with sublingual nitroglycerin. He has known coronary artery disease that was discovered on catheterization 1 year ago at which time he was noted to have an ulcerative lesion in the left main vessel but also 60% lesions of the distal circumflex and first obtuse marginal. No interventions were required at that time and he was put on nitroglycerin. He was chronically on Lipitor. He has not been studied or had stress test since the cath 1 year ago. Symptoms began in the past week. No associated dyspnea. No diaphoresis. No nausea or vomiting. Currently pain-free at the time of my evaluation. Symptoms are becoming more frequent, more intense and provoked by lesser degrees of exertion History provided by: Patient bilingual interpreter used: No Chest Pain Pain location: Substernal area Pain quality: tightness Pain radiates to: L shoulder and L arm Pain severity: Moderate Onset quality: Gradual Timing: Intermittent Progression: Worsening Chronicity: New Relieved by: Nothing Worsened by: Nothing Ineffective treatments: None tried Associated symptoms: no shortness of breath Risk factors: high cholesterol and hypertension No data recorded Patient History Past Medical History: Diagnosis Date CHF (congestive heart failure) ([facility]) Coronary artery disease Diabetes mellitus Hypertension CA (myocardial infarction) Past Surgical History: Procedure Laterality Date CARDIAC CATHETERIZATION Left 09/07/2022 Performed by Thong Paez MD at [facility] Cardiac Cath Labs CORONARY ANGIOPLASTY CORONARY STENT PLACEMENT CT ANGIOGRAM CHEST 02/01/2018 CT ANGIOGRAM CHEST [facility] Family History Problem Relation Name Age of Onset Hypertension Father Heart failure Father Social History Tobacco Use Smoking status: Never Smokeless tobacco: Never Vaping Use Vaping Use: Never used Substance Use Topics Alcohol use: Not Currently Drug use: Not Currently Types: Marijuana Review of Systems Review of Systems Respiratory: Negative for shortness of breath. Cardiovascular: Positive for chest pain. All other systems reviewed and are negative. Physical Exam ED Triage Vitals Temp Heart Rate Resp BP 09/26/23184809/26/23184509/26/23184509/26/231845 36.6 C (97.8 F) 78 18 (!) 194/131 SpO2 Temp src Heart Rate Source Patient Position 09/26/231845 -- 09/26/23185209/26/231852 97 % Monitor Sitting BP Location FiO2 (%) 09/26/231852 -- Right arm Physical Exam Vitals reviewed. HENT: Head: Normocephalic and atraumatic. Eyes: Pupils: Pupils are equal, round, and reactive to light. Cardiovascular: Rate and Rhythm: Normal rate. Heart sounds: Normal heart sounds. Pulmonary: Effort: Pulmonary effort is normal. Breath sounds: Normal breath sounds. No decreased breath sounds, wheezing or rhonchi. Abdominal: Palpations: Abdomen is soft. Musculoskeletal: General: Normal range of motion. Cervical back: Normal range of motion. Right lower leg: No tenderness. No edema. Left lower leg: No tenderness. No edema. Skin: General: Skin is warm. Capillary Refill: Capillary refill takes less than 2 seconds. Neurological: General: No focal deficit present. Mental Status: He is alert and oriented to person, place, and time. Psychiatric: Mood and Affect: Mood normal. Behavior: Behavior normal. ED Course & MDM ED Course as of 09/28/23 1705 Tue Sep 26, 20232048 Patient remains pain-free but first troponin is elevated to 92. Improvement of his blood pressure with 1 dose of IV hydralazine. Given his known 60% lesions in the circumflex and obtuse marginal 1 year ago as well as the ulcerative plaque noted in the left main, will go ahead and start IV heparin. His symptoms are consistent with unstable angina and will be admitted for further evaluation. He does have chronic left bundle branch block, diminishing sensitivity of current EKG. [BA] 2199 Awaiting callback from hospitalist [BA] 2245 Gradual upward trend of troponin but patient remains pain-free. [BA] 2258 D/W Dr. Stearns to admit [BA] ED Course User Index [BA] Tawanda Becerra MD Diagnoses as of 09/28/231704 Acute chest pain NSTEMI (non-ST elevated myocardial infarction) (CMS/HCC) Unstable angina (CMS/HCC) Medical Decision Making Acute chest pain: acute illness or injury NSTEMI (non-ST elevated myocardial infarction) (CMS/HCC): acute illness or injury Unstable angina (CMS/HCC): acute illness or injury Amount and/or Complexity of Data Reviewed Labs: ordered. Radiology: ordered and independent interpretation performed. ECG/medicine tests: ordered and independent interpretation performed. Tawanda Becerra MD 09/28/231704 [facility] 03-16-2022 History of Presen t illness Narrative Subjective Patient ID: Andrews Valente is a 61 y.o. male. HPI Patient is a 61-year-old male who presents today with complaints of cough congestion fatigue and a fever. Patient states he also has been sneezing scratchy throat and watery eyes. Patient states he has tried esfi-cqh-djxibcj Tylenol ibuprofen for symptoms. Patient denies chills body aches sore throat or ear pain. The following portions of the chart were reviewed this encounter and updated as appropriate: Meds Problems Review of Systems Constitutional: Positive for fatigue and fever. HENT: Positive for congestion, postnasal drip, rhinorrhea and sneezing. Respiratory: Positive for cough. All other systems reviewed and are negative. Objective Physical Exam Vitals and nursing note reviewed. Constitutional: General: He is awake. He is not in acute distress. Appearance: Normal appearance. He is well-developed. He is not ill-appearing. HENT: Head: Normocephalic. Jaw: There is normal jaw occlusion. Right Ear: Hearing, ear canal and external ear normal. A middle ear effusion is present. Tympanic membrane is bulging. Left Ear: Hearing, ear canal and external ear normal. A middle ear effusion is present. Tympanic membrane is bulging. Nose: Rhinorrhea present. Right Sinus: No maxillary sinus tenderness or frontal sinus tenderness. Left Sinus: No maxillary sinus tenderness or frontal sinus tenderness. Mouth/Throat: Lips: [place]. Mouth: Mucous membranes are moist. Pharynx: Oropharynx is clear. Uvula midline. Comments: Patent airway Cardiovascular: Rate and Rhythm: Normal rate and regular rhythm. Heart sounds: Normal heart sounds. Pulmonary: Effort: Pulmonary effort is normal. Breath sounds: Normal breath sounds and air entry. Comments: Good lung sounds to all pelaez Lymphadenopathy: Cervical: No cervical adenopathy. Right cervical: No superficial cervical adenopathy. Left cervical: No superficial cervical adenopathy. Skin: General: Skin is warm and dry. Capillary Refill: Capillary refill takes 2 to 3 seconds. Neurological: General: No focal deficit present. Mental Status: He is alert and oriented to person, place, and time. Gait: Gait is intact. Psychiatric: Attention and Perception: Attention normal. Mood and Affect: Mood normal. Speech: Speech normal. Behavior: Behavior is cooperative. Procedures Assessment/Plan Diagnoses and all orders for this visit: Viral syndrome - POC Influenza A/B and SARS Antigen manually resulted Acute upper respiratory infection, unspecified - nscbtdttwuwqxjm-RX-zhpswzxridu (Capmist DM) 60-15-400 mg tablet; Take 1 tablet by mouth every 6 (six) hours if needed (cough/congestion). Advised OTC for symptomatic relief. Swabs neg in office today S/s for follow up discussed Patient has been evaluated and discharge for follow up with PCP if needed. It has been determined that there are no dangerous findings for this visit. They were instructed to return for new or worsening symptoms either here or to an emergency room. Patient voices understanding of the above. All questions were answered and they had no other complaints at the time of disposition and were agreeable with the plan. PT C/O NASAL CONGESTION, COUGH, AND SUBJECTIVE FEVER. ONSET 3 DAYS AGO. PT STS HIS BLOOD PRESSURE IS ALWAYS HIGH AT DR OFFICE BUT THEY RECHECK IT BEFORE HE LEAVES AND IT IS LOWER. documented in this encounter [facility] 03-16-2022 Instructions BINH Lloyd - 03/16/2022 12:15 PM EDT Images from the original note were not included. Patient Education Discharge Instructions for Viral Upper Respiratory Infection -- Adult Viral upper respiratory infections (URIs) range from mild to severe. They cause problems in the ears, sinuses, throat, and nose. They are mainly caused by cold and flu viruses. They are treated with home care and medicines. Steps to Take Home Care You should feel better in 1 to 2 weeks. To speed recovery, rest when you feel tired. You can also: Use a cool-mist vaporizer. This may help ease coughing and stuffiness. Take steamy showers. Use saline nose drops often to loosen phlegm . Soak in a cool or lukewarm bath to soothe a fever. Gargle with warm salt water to soothe a sore throat. Use throat lozenges or cough drops. Do not smoke. Stay away from those who do. Diet There is no special diet, but you may feel better if you: Drink plenty of fluids, including warm tea and soup. Eat smaller, more frequent meals. Eat a well-balanced diet with fruits and vegetables. Do not drink alcohol. Medications Medicines may be advised to ease: Fever Aches and pain Stuffiness Cough Sore throat When taking medicine: Take your medicine as advised. Do not change the amount or schedule. Be aware of the side effects of your medicine. Tell your doctor if you have any. Talk to your doctor before you stop taking any prescription medicine. Do not share your prescription medicine. Medicines can be harmful when mixed. Talk to your doctor or pharmacist if you are taking more than one. This includes over the counter products and supplements. Follow-up Your doctor may need to check on your progress. It is important to go to all appointments. Call Your Doctor If Any of the Following Occur Call your doctor if you are not getting better or you have: High fever or one lasting more than 3 to 4 days A cough with yellow, green, or bloody phlegm Pain in your ears, sinuses, head, or chest White spots in the back of your throat Problems with breathing Problems with thinking clearly Flu-like symptoms that return with a fever and worsening cough If you think you have an emergency, call for medical help right away. Last Reviewed: October 2020 [employer] Bernadine Mcgill, MSN, BS, RNC-PATRICIA Updated: 12/01/2020 [employer] documented in this encounter [facility] Evaluation note Diagnosis Viral syndrome- Primary Unspecified viral infection, in conditions classified elsewhere and of unspecified site Acute upper respiratory infection, unspecified [facility] Diagnosis NSTEMI (non-ST elevated myocardial infarction) ([facility])- Primary Acute myocardial infarction, subendocardial infarction, episode of care unspecified Acute chest pain Unspecified chest pain NSTEMI (non-ST elevated myocardial infarction) ([facility]) Acute myocardial infarction, subendocardial infarction, episode of care unspecified Unstable angina ([facility]) Intermediate coronary syndrome Chronic systolic heart failure ([facility]) Chronic systolic heart failure Coronary artery disease Coronary atherosclerosis of unspecified type of vessel, [place] or graft Type 2 diabetes mellitus Hypertension Unspecified essential hypertension Chronic systolic heart failure ([facility]/HCC) Chronic systolic heart failure Left bundle branch block (LBBB) Hyperlipidemia, unspecified Hypertensive urgency NSTEMI (non-ST elevated myocardial infarction) ([facility]) Acute myocardial infarction, subendocardial infarction, episode of care unspecified [facility] Diagnosis Laceration of toe without foreign body present or damage to nail, unspecified laterality, unspecified toe, initial encounter- Primary Contusion of knee, unspecified laterality, initial encounter [facility] Consultation (Routine) - Authorized Specialty Diagnoses / Procedures Referred By Neel velazquez Referred To Contact Cardiology Diagnoses Chronic systolic heart failure ([facility]/HCC) Emilia Collins DO [address] [place] [address] [facility] Heart Failure - [place] [address] [place] [phone] Referral ID Status Reason Start Date Expiration Date Visits Requested Visits Authorized [id number] Authorized Specialty Services Required 09/28/2023 09/27/2024 1 1 * Consultation (Routine) - Authorized Specialty Diagnoses / Procedures Referred By Contac t Referred To Contact Cardiology Diagnoses NSTEMI (non-ST elevated myocardial infarction) (CMS/HCC) Emilia Collins DO [address] [place] [address] [place] [address] [place] [phone] Referral ID Status Reason Start Date Expiration Date Visits Requested Visits Authorized [id number] Authorized Specialty Services Required 09/28/2023 09/27/2024 1 1 * Auth/Cert (Routine) - New Request Specialty Diagnoses / Procedures Referred By Contac t Referred To Contact Diagnoses NSTEMI (non-ST elevated myocardial infarction) (CMS/HCC) Procedures Case Request 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 Gun Assembler: Left heart cath Kaylene Porter APRN-CNP [address] [place] [address] Referral ID Status Reason Start Date Expiration Date V isits Requested Visits Authorized [id number] New Request 09/27/2023 09/26/2024 1 1 [facility] Summary Purpose Family History No Family History Records FoundNo Family History Records FoundNo Family History Records Found Advance Directives Documents on File Type Date Recorded Patient Reconciliation Accountant Expl anation Advance Directives and Living Will Power of Word Processor Latest Code Status on File Code Status Date Activated Date Inactivated Comments Full Code 09/27/2023 1:20 AM 09/28/2023 3:32 PM Code Status History Code Status Date Activated Date Inactivated Comments Full Code 09/07/2022 1:01 PM 09/09/2022 3:32 PM Date Activated Date Inactivated Comments 09/27/2023 1:20 AM 09/28/2023 3:32 PM Date Activated Date Inactivated Comments 09/07/2022 1:01 PM 09/09/2022 3:32 PM Hospital Course Note EMERGENCY DEPARTMENT DISCHAR GE SUMMARY PATIENT NAME:ANDREWS VALENTE MRN: [id number] AGE: 58 Years SEX: Male PHONE: DOS: 03/22/2019 7:53 AM : 1960 ATTENDING PHYSICIAN:Angel Rodriguez PCP: Physician, PCP Unknown CHIEF COMPLAINT: Allergies No Allergies Documented Problems No Problems Documented DISCHARGE DIAGNOSIS: DISCHARGE INSTRUCTIONS: ED PHYSICIAN DOCUMENTATION: DISPOSITION: Time of Departure From ER 03/22/2019 07:59 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 [facility] 03/25/19 12:07 [address] [place]. [address] PATIENT INFORMATION Name: ANDREWS VALENTE Address: [address] [facility] [address] Age: 58 Years Phone: : 1960 12:00 MRN: [id number] Sex: Male Race: White Ethnicity: Not Hispan/Lat Admitted From: [facility] Medical Service: Internal Medicine Nurse Unit/Bed: (CO) 1E 3L89-35 Admit Date: 03/22/2019 08:14 PCP: Physician, PCP Unknown PHYSICIANS INVOLVED WITH CARE Attending Physicians: None found Admitting Physician: Abiodun Saha MD - Internal Medicine Primary Care Physician:Physician, PCP Unknown,Family Practice,,, - Consults: Fara PASTOR , Chinmay Jung Disease Problems Active No Chronic Problems Allergies NKA No Known Medication Allergies (more content not included)... Additional Source Comments (unrecognized sect ion and content) No Status Records FoundNo Status Records FoundNo Status Records Found INFORMATION SOURCE (unrecogn ized section and content) DATE CREATED AUTHOR 08/16/2018 [facility] DATE CREATED AUTHOR AUTHOR'S ORGANIZ ATION 04/09/2019 [facility] DATE CREATED AUTHOR AUTHOR'S ORGANIZ ATION 02/24/2025 [facility] Reason for Visit (unrecogniz ed section and content) Reason Comments Nasal Congestion Cough Fever Reason Comments Chest Pain Specialty Diagnoses / Procedures Referred By Contac t Referred To Contact Diagnoses Unstable angina ([facility]) Acute chest pain NSTEMI (non-ST elevated myocardial infarction) ([facility]) [place] [address] [place] [phone] [facility] Coronary Care Unit [address] [place] [phone] Referral ID Status Reason Start Date Expiration Date Visits Re quested Visits Authorized [id number] 1 1 Reason Comments Fall Leg Pain Care Teams (unrecognized sec tion and content) Rod Tape Operator Relationship Specialty Start Date End Date Kailey Nieves DO [address] [place], [place] [id number] PCP - General Family Practice 07/27/21 Rod Tape Operator Relationship Specialty Start Date End Date Kailey Nieves DO [address] [place] [phone] PCP - General Family Practice 07/27/21 Rod Tape Operator Relationship Specialty Start Date End Date Kailey Nieves DO [address] [place] [phone] PCP - General Family Practice 07/27/21 Scheduled Active and Recently Administ ered Medications (unrecognized section and content) Medication Order 09/26/2023 09/27/2023 09/28/2023 aspirin chewable tablet 324 mg (COMPLETED) 324 mg, oral, Once, On Mon09/26/23 at 2050, For 1 dose 2057 (Given - Provider: Luli Koehler RN) aspirin chewable tablet 81 mg 81 mg, oral, Daily, First dose (after last reorder) on Mon09/27/23 at 0900 0915 (Given - Provider: Roberta Burk RN)1153 ([facility] Hold - Provider: Automatic Transfer Provider - Reason: Patient not available)1328 ([facility] Unhold - Provider: Automatic Transfer Provider) 0818 (Given - Provider: Veronique Hawley RN) carvedilol (Coreg) tablet 25 mg 25 mg, oral, 2 times daily with meals, First dose on Mon09/27/23 at 0800 0914 (Given - Provider: Roberta Burk RN)1153 ([facility] Hold - Provider: Automatic Transfer Provider - Reason: Patient not available)1328 ([facility] Unhold - Provider: Automatic Transfer Provider)1753 (Given - Provider: Roberta Burk RN) 0818 (Given - Provider: Veronique Hawley RN) clopidogrel (Plavix) tablet 75 mg 75 mg, oral, Daily, First dose on Mon09/27/23 at 0900 0914 (Given - Provider: Roberta Burk RN)1153 ([facility] Hold - Provider: Automatic Transfer Provider - Reason: Patient not available)1328 ([facility] Unhold - Provider: Automatic Transfer Provider) 0818 (Given - Provider: Veronique Hawley RN) empagliflozin (Jardiance) tablet 10 mg 10 mg, oral, Daily, First dose on Mon09/27/23 at 0915 0914 (Given - Provider: Roberta Burk RN)1153 ([facility] Hold - Provider: Automatic Transfer Provider - Reason: Patient not available)1328 ([facility] Unhold - Provider: Automatic Transfer Provider) 0818 (Given - Provider: Veronique Hawley RN) glimepiride (Amaryl) tablet 4 mg 4 mg, oral, Daily before breakfast, First dose on Mon09/27/23 at 0700 0915 (Given - Provider: Roberta Burk RN)1153 ([facility] Hold - Provider: Automatic Transfer Provider - Reason: Patient not available)1328 ([facility] Unhold - Provider: Automatic Transfer Provider) 0818 (Given - Provider: Veronique Hawley, OSMAN) heparin (porcine) injection 4,000 Units (COMPLETED) 4,000 Units, intravenous, Once, On Mon09/26/23 at 2050, For 1 dose, Initial bolus (cardiac/vascular protocol) HIGH ALERT MEDICATION 2100 (Given - Provider: Luli Koehler, OSMAN) hydrALAZINE (Apresoline) injection 10 mg (COMPLETED) 10 mg, intravenous, Once, On Mon09/26/23 at 1925, For 1 dose 2000 (Given - Provider: Deloris Hawkins, OSMAN) isosorbide mononitrate ER (Imdur) 24 hr tablet 30 mg (COMPLETED) 30 mg, oral, Once, On Mon09/26/23 at 1930, For 1 dose, Do not crush or chew. 2001 (Given - Provider: Deloris Hawkins, OSMAN) losartan (Cozaar) tablet 100 mg 100 mg, oral, Daily, First dose (after last modification) on Mon09/29/23 at 0900 losartan (Cozaar) tablet 50 mg (CANCELED) 50 mg, oral, Daily, First dose on Mon09/27/23 at 0900 0915 (Given - Provider: Roberta Burk RN)1153 ([facility] Hold - Provider: Automatic Transfer Provider - Reason: Patient not available)1328 ([facility] Unhold - Provider: Automatic Transfer Provider) 0818 (Given - Provider: Veronique Hawley, OSMAN) losartan (Cozaar) tablet 50 mg (COMPLETED) 50 mg, oral, Once, On Mon09/28/23 at 0945, For 1 dose 1000 (Given - Provider: Jaylen Mckeon, OSMAN) oxygen (O2) gas inhalation, See admin instructions, Starting on Mon09/27/23 at 0119, for shortness of breath or Hgb less than 8.0, Device: Nasal Cannula, Rate in liters per minute: 2 Lpm, Titrate to keep O2 Sat greater than or equal to: 90% 1153 ([facility] Hold - Provider: Automatic Transfer Provider - Reason: Patient not available)1328 ([facility] Unhold - Provider: Automatic Transfer Provider) potassium chloride CR (K-Tab) ER tablet 20 mEq (COMPLETED) 20 mEq, oral, Once, On Mon09/27/23 at 0800, For 1 dose, Best given with food and a glass of water to minimize gastric irritation. Do not crush, chew, or split. 0914 (Given - Provider: Roberta Burk RN) rosuvastatin (Crestor) tablet 20 mg 20 mg, oral, Nightly, First dose on Mon09/27/23 at 0130 0147 (Given - Provider: Sommer Horowitz RN)1153 ([facility] Hold - Provider: Automatic Transfer Provider - Reason: Patient not available)1328 ([facility] Unhold - Provider: Automatic Transfer Provider)2001 (Given - Provider: Annika Alcala RN) spironolactone (Aldactone) tablet 25 mg 25 mg, oral, Daily, First dose on Mon09/27/23 at 0900 1153 ([facility] Hold - Provider: Automatic Transfer Provider - Reason: Patient not available)1328 ([facility] Unhold - Provider: Automatic Transfer Provider)1506 (Given - Provider: Roberta Burk RN) 0818 (Given - Provider: Veronique Hawley RN) Continuous Medication Order 09/26/2023 09/27/2023 09/28/2023 heparin infusion 50 units/mL in 0.45% NaCl (CANCELED) 14.2 Units/kg/hr 98 kg (27.832 mL/hr, rounded to 27.8 mL/hr), intravenous, Titrated, Starting on Mon09/26/23 at 2100, Cardiac/Vascular Protocol Contact pharmacy if measured body weight upon admission differs from estimated body weight in ED by greater than or equal to 10% to evaluate appropriateness of re-entering order with correct weight. Pharmacy will determine if patient has used a Factor Xa inhibitor within 72 hours prior to initiating unfractionated heparin. * If NO, pharmacy will monitor heparin utilizing anti-Xa level and adjust per attached table * If YES, pharmacy must order both aPTT and anti-Xa level and adjust drip per aPTT until values become concordant with attached table. Pharmacy to order lab(s) per protocol, calculate dose changes, enter appropriate changes to orders, and communicate changes to RN. HIGH ALERT MEDICATION, Initial Dose (units/kg/hr): 12, Maximum Initial Dose (units/hr): 1000, Maximum Initial Dose (mL/hr): 20, aPTT <38.7 or Anti-Xa <0.1 : Maintenance Dose Adjustment (units/kg/hr): 2, aPTT <38.7 or Anti-Xa <0.1 : Bolus Dose (units/kg): 50, aPTT <38.7 or Anti-Xa < 0.1 : Bolus Dose Maximum (units): 4000, aPTT <38.7 or Anti-Xa <0.1 : Additional Instructions: Administer bolus, increase infusion rate., aPTT 38.7-43.7 or Anti-Xa 0.1-0.29 : Maintenance Dose Adjustment (units/kg/hr): 2, aPTT 38.7-43.7 or Anti-Xa 0.1-0.29 : Bolus Dose (units/kg): 0, aPTT 38.7-43.7 or Anti-Xa 0.1-0.29 : Additional Instructions: Increase infusion rate., aPTT 43.8-64.0 or Anti-Xa 0.3-0.7 : Maintenance Dose Adjustment (units/kg/hr): 0, aPTT 43.8-64.0 or Anti-Xa 0.3-0.7 : Bolus Dose (units/kg): 0, aPTT 43.8-64.0 or Anti-Xa 0.3-0.7 : Additional Instructions: Continue current infusion rate., aPTT 64.1-69.0 or Anti-Xa 0.71-0.99 : Maintenance Dose Adjustment (units/kg/hr): -2, aPTT 64.1-69.0 or Anti-Xa 0.71-0.99 : Bolus Dose (units/kg): 0, aPTT 64.1-69.0 or Anti-Xa 0.71-0.99 : Additional Instructions: Decrease infusion rate., aPTT >69.0 or Anti-Xa >= 1 : Maintenance Dose Adjustment (units/kg/hr): -3, aPTT >69.0 or Anti-Xa >= 1 : Bolus Dose (units/kg): 0, aPTT >69.0 or Anti-Xa >= 1 : Additional Instructions: Stop infusion for 60 min. Restart with rate decrease of 3 units/kg/hr. 5480 (New Bag - Provider: Luli Koehler RN)8192 (Dose/Rate Verified - Provider: Luli C [place], RN) 0035 (Continue to Inpatient Floor - Provider: Luli Koehler, RN)0448 (Not Given - Provider: Sommer Horowitz RN - Reason: Other - Comment: link orders,)0519 (Rate/Dose Change - Provider: Sommer Horowitz RN)1012 (Rate/Dose Change - Provider: Roberta Burk, RN)1031 (New Bag - Provider: Roberta Burk, RN)1144 (Stopped - Provider: Maribel Almanzar RN) PRN Medication Order 09/26/2023 09/27/2023 09/28/2023 acetaminophen (Tylenol) 160 mg/5 mL liquid 650 mg 650 mg, oral, Every 4 hours PRN, fever, general discomfort or temperature greater than 100.4 degrees F. May give rectal suppository if npo. *Do not exceed 4 grams in 24 hours*, Starting on Mon09/27/23 at 0119 1153 (DEC Hold - Provider: Automatic Transfer Provider - Reason: Patient not available)1328 ([facility] Unhold - Provider: Automatic Transfer Provider) acetaminophen (Tylenol) suppository 650 mg 650 mg, rectal, Every 4 hours PRN, general discomfort or temperature greater than 100.4 degrees F. *Do not exceed 4 grams in 24 hours*, Starting on Mon09/27/23 at 0119, Give OH if unable to administer by mouth or feeding tube. 1153 ([facility] Hold - Provider: Automatic Transfer Provider - Reason: Patient not available)1328 ([facility] Unhold - Provider: Automatic Transfer Provider) acetaminophen (Tylenol) tablet 650 mg 650 mg, oral, Every 4 hours PRN, general discomfort or temperature greater than 100.4 degrees F. May give rectal suppository if npo. *Do not exceed 4 grams in 24 hours*, Starting on Mon09/27/23 at 0119 0139 (Not Given - Provider: Sommer Horowitz RN - Reason: Patient/family refused)0548 (Given - Provider: Sommer Horowitz RN)1153 (DEC Hold - Provider: Automatic Transfer Provider - Reason: Patient not available)1328 ([facility] Unhold - Provider: Automatic Transfer Provider) atropine syringe 0.5 mg 0.5 mg, intravenous, Every 5 min PRN, symptomatic bradycardia, Starting on Mon09/27/23 at 0119, Prn symptomatic bradycardia including: - HR less than 50 per minute - HR less than 60 per minute with systolic BP less than 90 mm Hg - HR less than 60 per minute with PVCs 1153 ([facility] Hold - Provider: Automatic Transfer Provider - Reason: Patient not available)1328 ([facility] Unhold - Provider: Automatic Transfer Provider) dextrose solution 25 mL(Linked Group 1) 25 mL, intravenous, As needed, low blood sugar, blood glucose less than 60 mg/dL and IV access is available, Starting on Mon09/27/23 at 0119, For the patient who cannot eat or who has altered mentation or is unconscious. Recheck glucose every 30 minutes until above 70. Notify physician. 1153 ([facility] Hold - Provider: Automatic Transfer Provider - Reason: Patient not available)1328 ([facility] Unhold - Provider: Automatic Transfer Provider) docusate sodium (Colace) capsule 100 mg 100 mg, oral, 2 times daily PRN, constipation prevention, Starting on Mon09/27/23 at 0119, Bowel Regimen - for prevention of constipation. 1153 ([facility] Hold - Provider: Automatic Transfer Provider - Reason: Patient not available)1328 ([facility] Unhold - Provider: Automatic Transfer Provider) Everolimus-Eluting Coronary Stent (Xience) (CANCELED) intracardiac, As needed, Starting on Mon09/27/23 at 1238, Intraprocedure 1238 (Given - Provider: Thong Paez MD) fentaNYL (Sublimaze) injection (CANCELED) intravenous, As needed, Starting on Mon09/27/23 at 1219, Intraprocedure 1219 (Given - Provider: Tiera Bowen RN) glucagon injection 1 mg(Linked Group 1) 1 mg, intravenous, As needed, blood glucose less than 60 mg/dL, IV access is available, and dextrose 50% is unavailable, Starting on Mon09/27/23 at 0119, For the patient who cannot eat or who has altered mentation or is unconscious. Recheck glucose every 30 minutes until above 70. Notify physician. May repeat every 15 minutes as needed. If patient is not responding to treatment with glucagon, contact provider or pharmacy for other options. 1153 ([facility] Hold - Provider: Automatic Transfer Provider - Reason: Patient not available)1328 ([facility] Unhold - Provider: Automatic Transfer Provider) glucagon injection 1 mg(Linked Group 1) 1 mg, subcutaneous, As needed, blood glucose less than 60 mg/dL and no IV access, Starting on Mon09/27/23 at 0119, For the patient who cannot eat or who has altered mentation or is unconscious. After glucagon administration, start IV access. Notify physician. Re-assess glucose level every hour until two consecutive readings greater than 60 mg/dL. If persistently below 70 mg/dL after treatment, notify physician. 1153 ([facility] Hold - Provider: Automatic Transfer Provider - Reason: Patient not available)1328 ([facility] Unhold - Provider: Automatic Transfer Provider) heparin (porcine) injection (CANCELED) intravenous, As needed, Starting on Mon09/27/23 at 1224, Intraprocedure 1224 (Given - Provider: Tiera Bowen RN)1252 (Given - Provider: Tiera Bowen RN) heparin (porcine) injection (CANCELED) intravenous, As needed, Starting on Mon09/27/23 at 1229, Intraprocedure 1229 (Given - Provider: Tiera Bowen RN) iopamidoL (Isovue-370) 370 mg iodine /mL (76 %) injection (CANCELED) As needed, Starting on Mon09/27/23 at 1247, Intraprocedure 1247 (Given - Provider: Thong Paez MD) lidocaine (Xylocaine) 20 mg/mL (2 %) injection (CANCELED) infiltration, As needed, Starting on Mon09/27/23 at 1219, Intraprocedure 1219 (Given - Provider: Thong Paez MD - Comment: right radial) lidocaine 2 % - IA verapamil (Radial Cocktail) (CANCELED) intra-arterial, As needed, Starting on Mon09/27/23 at 1220, Intraprocedure 1220 (Given - Provider: Thong Paez MD) magnesium hydroxide (Milk of Magnesia) 400 mg/5 mL suspension 30 mL 30 mL, oral, Daily PRN, constipation, Starting on Mon09/27/23 at 0119, 1st line for treatment of constipation - give scheduled if no bowel movement in past 24 hours 1153 ([facility] Hold - Provider: Automatic Transfer Provider - Reason: Patient not available)1328 ([facility] Unhold - Provider: Automatic Transfer Provider) midazolam (Versed) injection (CANCELED) intravenous, As needed, Starting on Mon09/27/23 at 1218, Intraprocedure 1218 (Given - Provider: Tiera Bowen RN) naloxone (Narcan) injection 0.4 mg 0.4 mg, intravenous, As needed, respiratory depression, Starting on Mon09/27/23 at 0119, 0.4 mg (1 mL) IVP over 30 seconds for respiratory rate less than 8 per minute: NOTIFY PHYSICIAN immediately. Repeat every 2 minutes as needed up to 10 mg total. 1153 ([facility] Hold - Provider: Automatic Transfer Provider - Reason: Patient not available)1328 ([facility] Unhold - Provider: Automatic Transfer Provider) nitroglycerin (Nitrostat) SL tablet 0.4 mg 0.4 mg, sublingual, Every 5 min PRN, chest pain, Starting on Mon09/27/23 at 0119, Give every 5 minutes as needed for chest pain to a maximum of 3 doses. Notify MD and obtain EKG if no relief after 3 doses or chest pain recurs. HOLD and notify MD if SBP less than 90 mmHg. Do not give if nitroglycerin infusion running concurrently. Do not give within 24 hours of sildenafil citrate (Viagra) or vardenafil (Levitra) use, or within 48 hours of tadalafil (Cialis) use. 1153 ([facility] Hold - Provider: Automatic Transfer Provider - Reason: Patient not available)1328 ([facility] Unhold - Provider: Automatic Transfer Provider) ondansetron (Zofran) injection 4 mg 4 mg, intravenous, Every 8 hours PRN, nausea, vomiting, Starting on Mon09/27/23 at 0119, 1st Line. If inadequate response within 60 minutes, proceed to next-line agent or contact provider if no further options ordered. 1153 ([facility] Hold - Provider: Automatic Transfer Provider - Reason: Patient not available)1328 ([facility] Unhold - Provider: Automatic Transfer Provider) oxygen (O2) gas (CANCELED) inhalation, As needed, Starting on Mon09/27/23 at 1232, Intraprocedure 1232 (Given - Provider: Tiera Bowen RN)1309 (Stopped - Provider: Maribel Almanzar RN) sodium chloride 0.9 % infusion 250 mL 250 mL, intravenous, at 20 mL/hr, KVO, Line Care, Starting on Mon09/27/23 at 0119, If no maintenance IV fluid ordered, run a 250 mL bag of 0.9% NaCl with all IVPB. 1153 ([facility] Hold - Provider: Automatic Transfer Provider - Reason: Patient not available)1328 ([facility] Unhold - Provider: Automatic Transfer Provider) sodium chloride 0.9 % infusion (CANCELED) intravenous, Continuous PRN, Starting on Mon09/27/23 at 1157, Intraprocedure 1157 (New Bag - Provider: Tiera Bowen, RN)1309 (Stopped - Provider: Maribel Almanzar RN) sodium chloride flush(floorstock) 3-15 mL 3-15 mL, intravenous, As needed, line care, each shift and as needed, Starting on Mon09/27/23 at 0119 1153 ([facility] Hold - Provider: Automatic Transfer Provider - Reason: Patient not available)1328 ([facility] Unhold - Provider: Automatic Transfer Provider) Linked Groups Order Group 1: dextrose solution 25 mLJump to med 25 mL, intravenous, As needed, low blood sugar, blood glucose less than 60 mg/dL and IV access is available, Starting on Mon09/27/23 at 0119, For the patient who cannot eat or who has altered mentation or is unconscious. Recheck glucose every 30 minutes until above 70. Notify physician. Or glucagon injection 1 mgJump to med 1 mg, intravenous, As needed, blood glucose less than 60 mg/dL, IV access is available, and dextrose 50% is unavailable, Starting on Mon09/27/23 at 0119, For the patient who cannot eat or who has altered mentation or is unconscious. Recheck glucose every 30 minutes until above 70. Notify physician. May repeat every 15 minutes as needed. If patient is not responding to treatment with glucagon, contact provider or pharmacy for other options. Or glucagon injection 1 mgJump to med 1 mg, subcutaneous, As needed, blood glucose less than 60 mg/dL and no IV access, Starting on Mon09/27/23 at 0119, For the patient who cannot eat or who has altered mentation or is unconscious. After glucagon administration, start IV access. Notify physician. Re-assess glucose level every hour until two consecutive readings greater than 60 mg/dL. If persistently below 70 mg/dL after treatment, notify physician. Scheduled Medication Order 02/18/2025 02/19/2025 02/20/2025 cephalexin (Keflex) capsule 500 mg (COMPLETED) 500 mg, oral, Once, On Chika 02/20/25 at 0845, For 1 dose, Suspected Indication (Select all that apply): Medical Prophylaxis 09 (Given - Provid er: Bola Marie RN) FOR RECORDS PERTAINING TO PATIENTS WHO ARE OR HAVE BEEN ENROLLED IN A CHEMICAL DEPENDENCY/SUBSTANCEABUSE PROGRAM, SOME INFORMATION MAY BE OMITTED. This clinical summary was aggregated from multiple sources. Caution should be exercised in using it in the provision of clinical care. This summary normalizes information from multiple sources, and as a consequence, information in this document may materially change the coding, format and clinical context of patient data. In addition, data may be omitted in some cases. CLINICAL DECISIONS SHOULD BE BASED ON THE PRIMARY CLINICAL RECORDS. [facility]. provides no warranty or guarantee of the accuracy or completeness of information in this document.
[2025-07-28 00:53] LABS: Anion Gap 14 (5-15); BUN 28 mg/dL (4-19); BUN/Creat Ratio 22.9 RATIO (10-20); Calcium,Total 9.4 mg/dL (7.6-11.0); Carbon Dioxide 21.3 mmol/L (21.0-32.0); Chloride 101 mmol/L (98-108); Estimated Creatinine Clearance 76.23 ml/min (50-250); Glucose 162 mg/dL (70-99); Potassium 4.3 mmol/L (3.3-5.1)
[2025-07-28 00:56] LABS: Red Blood Cells-Urine 0-5 SEEN /hpf (0-5); Squamous Epithelial Cells - UA 0-5 SEEN /hpf (0-5)
[2025-07-28 01:15] VITALS: BP 152/82; PULSE 79; RESP 18; TEMP 36.6; O2SAT 98
== END 2025-07-28 01:24 | disposition home or self-care (01) ==
PROVIDERS: Emergency Provider Emergency Medicine; Visit Provider Emergency Medicine
DX: R33.9 Retention of urine, unspecified (principal); E11.9 Type 2 diabetes mellitus without complications; I10 Essential (primary) hypertension; Z79.02 Long term (current) use of antithrombotics/antiplatelets; Z79.84 Long term (current) use of oral hypoglycemic drugs; Z79.899 Other long term (current) drug therapy; F17.220 Nicotine dependence, chewing tobacco, uncomplicated
CPT/HCPCS: 36415; 51702; 80048; 81001; 87086; 99283

== ENCOUNTER 2025-08-05 01:01 | Emergency (ER) | payer SELFPAY ==
[2025-08-05 01:01] VITALS: BP 158/90; PULSE 81; RESP 16; TEMP 36.6; O2SAT 98; BMI 27.0
[2025-08-05 01:05] VITALS: BP 158/90; PULSE 85; RESP 16; TEMP 36.6; O2SAT 99
--- NOTE | 2025-08-05 01:22 | EX.ED.DYSGE1 ---
HPI History of Present Illness Chief Complaint: Complaint Informant: patient and spouse/S.O. Narrative Narrative: Patient is a 65-year-old male with past medical history of hypertension and [id number]-[id number] type 2 diabetes. He had a catheter placed roughly 1 week ago secondary to urinary retention and was placed on doxycycline with concern for prostatitis as a cause. He states that he is just now moving down to this area and does not have a urologist. He reports he had a catheter in place for 1 week and was advised to remove it on Monday. He states he took the catheter out and Monday had been able to urinate rather regularly. However Monday morning to afternoon he noticed his urination was beginning to decrease. He states in the evening he got to the point where he was just able to slightly dribble. He states that he felt his abdomen began to distend and cause pain similar to his last bout of retention. With concern he needs a repeat Crowe catheter he presents for evaluation. [facility] Medical History Type 2 diabetes mellitus HTN (hypertension) Home Medications ?Medication ?Instructions ?Recorded ?Last Taken ?Type carvedilol 25 mg tablet 25 mg PO BID 08/05/25 Unknown History clopidogrel 75 mg tablet 75 mg PO DAILY 08/05/25 Unknown History doxycycline hyclate 100 mg tablet 100 mg PO BID 08/05/25 Unknown History glimepiride 4 mg tablet 2 mg PO DAILY 08/05/25 Unknown History losartan 100 mg tablet 100 mg PO DAILY 08/05/25 Unknown History metformin 1,000 mg tablet 1,000 mg PO BID 08/05/25 Unknown History rosuvastatin 20 mg tablet 20 mg PO DAILY 08/05/25 Unknown History spironolactone 25 mg tablet 25 mg PO DAILY 08/05/25 Unknown History tamsulosin 0.4 mg capsule (Flomax) 0.4 mg PO DAILY 30 days #30 caps 08/05/25 Unknown Rx Allergy/AdvReac Type Severity Reaction Status Date / Time No Known Allergies Allergy Verified 08/05/25 01:03 Surgical History H/O heart surgery Social History Smoking Status: Current every day smoker tobacco type: smokeless tobacco ROS ROS ED Constitutional Constitutional ED: Denies chills or fever(s) Cardiovascular Cardiovascular: Denies chest pain Respiratory/Chest Respiratory/Chest: Denies cough or dyspnea Gastrointestinal Gastrointestinal: Reports abdominal pain; Denies diarrhea, nausea or vomiting Genitourinary Genitourinary ED: Reports other Details: Positive urinary retention Musculoskeletal Musculoskeletal: Denies back pain Integumentary Denies rash Neurologic Neurologic: Denies headache(s) Hematologic/Lymphatic Hematologic/Lymphatic: Reports easy bleeding and easy bruising EXAM Physical Exam Const Vital Signs: 08/05/25 01:01 08/05/25 01:05 08/05/25 01:45 Temperature 97.9 F 97.9 F 97.9 F Temperature Source Oral Oral Pulse Rate 81 85 85 Respiratory Rate 16 16 16 Blood Pressure 158/90 H 158/90 H 158/90 H Blood Pressure Mean 112 112 112 Pulse Ox 98 99 99 Positive well nourished and well developed General Appearance ED: well developed; Negative for pallor HEENT HEENT Narrative: Normocephalic atraumatic Eyes PERRL and EOMs intact bilaterally General Eye ED: Negative for scleral icterus Neck supple and no JVD Resp normal respiratory effort and clear to auscultation bilaterally Cardio regular rate and regular rhythm GI GI Narrative: There is pain with palpation in the lower midline abdomen/suprapubic region. There is organomegaly in this site consistent with urinary retention. The remainder of the abdomen is soft nontender and nondistended Narrative: No testicular swelling or masses noted. No blood or discharge from the urethral meatus Back/Spine no CVA tenderness Extremity normal to inspection Neuro oriented x3, CN's II-XII intact bilaterally and no sensory deficits noted Sensorium / Orientation: alert Motor Exam: strength 5/5 throughout Psych mental status grossly normal Skin no rashes or lesions noted General Skin Exam: Negative for jaundice or pallor MDM MDM MDM Narrative Medical decision making narrative: Patient arrived to the ER hypertensive but has a past medical history of this. He reported recent treatment for urinary retention. He states he was able to urinate rather normally for roughly 1 day and then symptoms began to recur. I have low concern for acute kidney injury as the patient states he was able to urinate Monday morning in the afternoon and the symptoms of retention have only been going on for a few hours. We did discuss potentially running a urine sample and checking basic labs. However the patient reports he was recently on doxycycline and he does not have a fever or back pain and he has low concern for infection or any adverse effects from his retention as its only been a few hours. Therefore we will hold off on laboratory testing at this time. A Crowe catheter was placed and approximately 1 L of urine was drained. Following this he reported feeling better and there was resolution of the organomegaly on the abdominal exam. Therefore at this time I will start him on Flomax as I feel BPH this is the most likely culprit of his retention. The Crowe catheter will be kept in to ensure there is no return of retention and he can follow-up with urology as an outpatient for further evaluation and treatment options. History & Record Review Discussion w/independent historian: Patient and Significant other Discharge Plan Triage Chief Complaint: Complaint ED Provider: Erick Jones Dx/Rx/DC Orders Clinical Impression: Urinary retention, Hypertension, Diabetes mellitus type 2, noninsulin dependent Instructions: ED BPH (Enlarged Prostate), ED Urinary Retention, Male Prescriptions: New tamsulosin [Flomax] 0.4 mg capsule 0.4 mg PO DAILY 30 Days Qty: 30 2RF No Action carvedilol 25 mg tablet 25 mg PO BID clopidogrel 75 mg tablet 75 mg PO DAILY spironolactone 25 mg tablet 25 mg PO DAILY metformin 1,000 mg tablet 1,000 mg PO BID glimepiride 4 mg tablet 2 mg PO DAILY losartan 100 mg tablet 100 mg PO DAILY rosuvastatin 20 mg tablet 20 mg PO DAILY doxycycline hyclate 100 mg tablet 100 mg PO BID Stand Alone Forms: ED Work / School Excuse Primary Care Provider: KAILEY CALL DO Referrals: Bruno Colon MD [Med Staff - Active Staff, Urology] Referral Note: Urinary retention Town Doctor,Out of [Non-Staff, Medical] Activity Restrictions/Additional Instructions: Please keep your catheter in for the next 3 to 5 days to help prevent reoccurrence of urinary retention. Your symptoms are most likely due to an enlarged prostate therefore begin taking Flomax once a day as directed. Follow-up with urology for repeat evaluation and return to the ER should you have any further concerns Print Language: [place] Disposition Disposition: Home, Self Care Discharge Date/Time: 08/05/25 01:49
[2025-08-05 01:45] VITALS: BP 158/90; PULSE 85; RESP 16; TEMP 36.6; O2SAT 99
== END 2025-08-05 01:49 | disposition home or self-care (01) ==
PROVIDERS: Emergency Provider Emergency Medicine; Visit Provider Emergency Medicine
DX: R33.9 Retention of urine, unspecified (principal); E11.9 Type 2 diabetes mellitus without complications; I10 Essential (primary) hypertension; Z79.899 Other long term (current) drug therapy; Z79.84 Long term (current) use of oral hypoglycemic drugs; F17.220 Nicotine dependence, chewing tobacco, uncomplicated
CPT/HCPCS: 51702; 99283